=== PATIENT | male | born 2000 | race Caucasian/White ===

== ENCOUNTER 2022-06-12 20:55 | Emergency (ER) | payer MEDICAID, SELFPAY ==
[2022-06-12] VITALS (24 sets, daily range): BP systolic 102–138; BP diastolic 70–83; PULSE 74–100; RESP 14–28; TEMP 37.2; O2SAT 83–98; BMI 34.0
--- NOTE | 2022-06-12 21:09 | ECG_ITS ---
[facility] Test Date: 2022-06-12 Pat Name: Raad Dasilva Department: Room: Gender: Male Technical Information Specialist: : [id number] Requested By: Hamilton Houston Order Number: [id number] Reis MD: Akin Naik M.D. Measurements Intervals [place] Rate: 89 P: 44 WV: 196 QRS: 52 QRSD: 98 T: 42 QT: 356 QTc: 433 Interpretive Statements SINUS RHYTHM No previous ECG available for comparison Electronically Signed On 06-12-2022 22:50:12 INDEX CLERK by Akin Naik M.D. [id number]
--- NOTE | 2022-06-12 21:10 | W.ED.SEIZURE ---
HPI - Seizure General: Chief Complaint: Seizure Stated Complaint: SEIZURE Time Seen by Provider: 06/12/22 21:09 History of Present Illness: HPI Narrative: 22-year-old male patient comes in today with reported seizure episodes. Family reports that patient does eat marijuana edibles daily. Patient eaten 2 of them this morning around 8:00. Patient has seizure episode tonight. No loss of bowel or bladder control was noted. No injury to the tongue was noted. Patient does have some abrasions to his toes. Patient has a history of ADHD and takes quetiapine. No other medical history is reported. Mother reports that patient had a seizure yesterday to where he held his breath for 3 minutes. Mother also reports a previous seizure about 3 weeks ago. Today's episode was reported as flailing arms. Patient does report that he feels disoriented right now. 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 Associated symptoms: Deny chest pain or fever(s) Review of Systems Const: Denies: fever(s) Eyes: Denies: change in vision ENMT: Denies: throat pain Card: Denies: chest pain Resp: Denies: dyspnea GI: Denies: nausea or vomiting : Denies: flank pain Musc: Denies: neck pain Skin/Breast: Denies: rash Neuro: Reports: seizure-like activity Psych: Denies: anxiety or depression Physical Exam Const: COMMON NORMALS: alert HENMT: MOUTH: Normal oral and palatal mucosa present Neck/C-Spine: COMMON NORMALS: full ROM Resp: COMMON NORMALS: normal respiratory effort and clear to auscultation bilaterally AUSCULTATION: clear to auscultation bilaterally Cardio: COMMON NORMALS: regular rate and regular rhythm RATE: regular rate RHYTHM: regular rhythm GI: COMMON NORMALS: Soft to palpation and non-tender PALPATION: Yes Soft to palpation Back/Pelvis: COMMON NORMALS: thoracic and lumbar spine normal to inspection Extremity: COMMON NORMALS: normal to inspection Neuro: SENSORIUM/ORIENTATION: Yes alert Skin: COMMON NORMALS: turgor normal GENERAL SKIN EXAM: turgor normal Course Vital Signs: Vital signs: Vital Signs Temperature 98.9 F 06/12/22 21:02 Pulse Rate 76 06/12/22 23:02 Respiratory Rate 18 06/12/22 23:02 Blood Pressure 138/80 06/12/22 23:02 Pulse Oximetry 98 06/12/22 23:02 Oxygen Delivery Me thod Nasal Cannula 06/12/22 21:02 MDM - Seizure MDM Narrative Medical decision making narrative: 22-year-old male patient comes in today for concerns of possible seizure episodes. Patient denies had a seizure-like episode that occurred probably 1 hour prior to arrival. On exam there is no signs of abrasions to the tongue or mouth. Patient does have some skin abrasions to his knee and left foot. Abdomen soft nontender. Skin is warm and dry. Vital signs are normal. No incontinence was reported. Mother reports patient's had 3 episodes in the last month. Differential diagnosis includes but not limited to epileptic seizures, pseudoseizures, adverse drug effects. CT of the head was unremarkable. CBC and CMP noted no abnormalities. Procalcitonin was 0.05. Drug screen showed positive for cannabis. Patient was given 1 g of Keppra to prevent further seizure. Patient will be continued on Keppra to 250 mg 2 times a day to prevent further seizure. Recommend patient follow-up with neurology for further treatment and evaluation. Suspect more of a pseudoseizure may be secondary to cannabis use or psychiatric illness. Reviewed with patient's family with recommendations for definitive diagnosis through primary care and neurology. Lab Data 06/12/22 21:06 06/12/22 21:06 Labs: Radiology Impressions Head CT 06/12/22 21:33 IMPRESSION: No acute intracranial abnormality. Laboratory Results WBC 8.8 10^3/uL (4.0-10.0) 06/12/22 21:06 RBC 5.56 10^6/uL (4.1-5.3) H 06/12/22 21:06 Hgb 15.6 g/dL (11.7-16.6) 06/12/22 21:06 Hct 45.8 % (42.0-52.0) 06/12/22 21: MCV 82.4 fl (80-94) 06/12/22 21:06 MCH 28.1 pg (28.0-34.0) 06/12/22 21:06 MCHC 34.1 g/dL (30.0-36.0) 06/12/22 21:06 RDW 13.1 % (12.1-15.1) 06/12/22 21:06 Plt Count 244 10^3/cmm (130-400) 06/12/22 21:06 MPV 11.3 fL (7.4-10.4) H 06/12/22 21:06 Neut % (Auto) 65.3 % 06/12/22 21:06 Lymph % (Auto) 26.1 % 06/12/22 21:06 Stanley % (Auto) 5.5 % 06/12/22 21:06 Eos % (Auto) 2.5 % 06/12/22 21:06 Baso % (Auto) 0.3 % 06/12/22 21:06 Neut # (Auto) 5.74 10^3/uL (1.8-7.7) 06/12/22 21:06 Lymph # (Auto) 2.3 10^3/uL (0.8-4.8) 06/12/22 21:06 Stanley # (Auto) 0.5 10^3/uL (0.2-0.9) 06/12/22 21:06 Eos # (Auto) 0.2 10^3/uL (0.0-0.8) 06/12/22 21:06 Baso # (Auto) 0.0 10^3/uL (0.0-0.1) 06/12/22 21:06 Nucleated RBC % (auto) 0 % 06/12/22 21:06 Nucleated RBCs # 0.0 /100WBC 06/12/22 21:06 Sodium 140 mmol/L (136-145) 06/12/22 21:06 Potassium 3.6 mmol/L (3.5-5.1) 06/12/22 21:06 Chloride 101 mmol/L (98-107) 06/12/22 21:06 Carbon Dioxide 25 mmol/L (22-29) 06/12/22 21:06 Anion Gap 17.6 (5-19) 06/12/22 21:06 BUN 10 mg/dL (6-20) 06/12/22 21:06 Creatinine 1.2 mg/dL (0.7-1.2) 06/12/22 21:06 GFR Calculation 76.4 mL/min (90-130) L 06/12/22 21:06 Glucose 107 mg/dL (65-115) 06/12/22 21:06 Calculated Osmolality 290 mOsm/kg (285-295) 06/12/22 21:06 Calcium 9.6 mg/dL (8.5-10.5) 06/12/22 21:06 Total Bilirubin 0.3 mg/dL (0.15-1.2) 06/12/22 21:06 AST 21 U/L (0-40) 06/12/22 21:06 ALT 28 U/L (0-41) 06/12/22 21:06 Alkaline Phosphatase 97 U/L (40-130) 06/12/22 21:06 Total Protein 7.2 g/dL (6.6-8.7) 06/12/22 21:06 Albumin 4.6 g/dL (3.5-5.2) 06/12/22 21:06 Globulin 2.6 g/dL (1.3-4.6) 06/12/22 21:06 Procalcitonin 0.05 ng/mL (0-0.5) 06/12/22 21:06 Urine Color Yellow (Yellow) 06/12/22 22:10 Urine Appearance Clear (CLEAR) 06/12/22 22:10 Urine pH 5 (5-7) 06/12/22 22:10 Ur Specific [place] 1.025 (1.005-1.030) 06/12/22 22:10 Urine Protein Neg (Negative) 06/12/22 22:10 Urine Glucose (UA) Norm (Normal) 06/12/22 22:10 Urine Ketones Negative (Negative) 06/12/22 22:10 Urine Blood Neg (Negative) 06/12/22 22:10 Urine Nitrate Negative (Negative) 06/12/22 22:10 Urine Bilirubin Neg (Negative) 06/12/22 22:10 Urine Urobilinogen Norm mg/dL (Negative) 06/12/22 22:10 Ur Leukocyte Esterase Negative (Negative) 06/12/22 22:10 Urine Opiates Screen Negative ng/mL (Negative) 06/12/22 22:10 Ur Barbiturates Screen Negative ng/mL (Negative) 06/12/22 22:10 Ur Phencyclidine Scrn Negative ng/mL (Negative) 06/12/22 22:10 Ur Amphetamines Screen Negative ng/mL (Negative) 06/12/22 22:10 U Benzodiazepines Scrn Negative ng/mL (Negative) 06/12/22 22:10 Urine Cocaine Screen Negative ng/mL (Negative) 06/12/22 22:10 U Marijuana (THC) Screen Positive ng/mL (Negative) H 06/12/22 22:10 EKG Data EKG 1: EKG interpretation date: 06/12/22 EKG interpretation time: 21:41 Prior EKG tracings: not available for review Interpretation: EKG shows a normal sinus rhythm with a regular rate [address] elevation or ectopy is noted Discharge Plan Discharge Patient Disposition: Home Clinical Impression: Seizure-like activity Condition: Stable Prescriptions: New Keppra 250 mg tablet 250 mg PO BID Qty: 60 0RF Discharge Orders: Discharge ED (Routine); Ordered 06/12/22 Ordered By: Hamilton Richards Discharge Diet: Usual diet Discharge Activity: Increase activity as tolerated Patient Instructions: Opioid Safety, Pain Management, Seizures Activity Restrictions/Additional Instructions: Home and rest. Take medications as directed. Case management will contact you for follow-up appointment for neurology. Coding Level of Care Code ED Infection Control Nurse for Shreya Horner
[2022-06-12 21:14] LABS: Basophils % 0.3 %; Eosinophils # 0.2 10^3/uL (0.0-0.8); Eosinophils % 2.5 %; Hematocrit 45.8 % (42.0-52.0); Hemoglobin 15.6 g/dL (11.7-16.6); Lymphocytes # 2.3 10^3/uL (0.8-4.8); Lymphocytes % 26.1 %; Mean Corpuscular HGB Conc 34.1 g/dL (30.0-36.0); Mean Corpuscular Hemoglobin 28.1 pg (28.0-34.0); Mean Corpuscular Volume 82.4 fl (80-94); Mean Platelet Volume 11.3 fL (7.4-10.4); Monocytes # 0.5 10^3/uL (0.2-0.9); Monocytes % 5.5 %; Neutrophils # 5.74 10^3/uL (1.8-7.7); Neutrophils % 65.3 %; Nucleated Red Blood Cells % 0 %; Platelet Count 244 10^3/cmm (130-400); Red Blood Count 5.56 10^6/uL (4.1-5.3); Red Cell Distribution Width 13.1 % (12.1-15.1); White Blood Count 8.8 10^3/uL (4.0-10.0)
--- NOTE | 2022-06-12 21:33 | CTR_ITS ---
PROCEDURE INFORMATION: Exam: CT Head Without Contrast Exam date and time: 06/12/2022 10:35 PM Age: 22 years old Clinical indication: Condition or disease; Convulsions or seizures; Additional info: Seizure TECHNIQUE: Imaging protocol: Computed tomography of the head without contrast. Radiation optimization: All CT scans at this facility use at least one of these dose optimization techniques: automated exposure control; mA and/or kV adjustment per patient size (includes targeted exams where dose is matched to clinical indication); or iterative reconstruction. REPORTING DATA: Count of CT and Cardiac NM exams in prior 12 months: This patient has received 0 known CTs and 0 known cardiac nuclear medicine studies in the 12 months prior to the current study. COMPARISON: No relevant prior studies available. RADIATION DOSE METRICS: Total DLP (mGy-cm): 1114.88 FINDINGS: Brain: Normal. No hemorrhage. Unremarkable white matter. No mass effect. Cerebral ventricles: No ventriculomegaly. Paranasal sinuses: Visualized sinuses are unremarkable. No fluid levels. Mastoid air cells: Visualized mastoid air cells are well aerated. Bones/joints: Unremarkable. No acute fracture. Soft tissues: Unremarkable. CT/CT head wo con* [id number] IMPRESSION: No acute intracranial abnormality.
[2022-06-12 21:39] LABS: Alanine Aminotransferase 28 U/L (0-41); Albumin Level 4.6 g/dL (3.5-5.2); Alkaline Phosphatase 97 U/L (40-130); Anion Gap 17.6 (5-19); Aspartate Amino Transferase 21 U/L (0-40); Blood Urea Nitrogen 10 mg/dL (6-20); Calcium 9.6 mg/dL (8.5-10.5); Carbon Dioxide 25 mmol/L (22-29); Chloride 101 mmol/L (98-107); Creatinine Clr Calc Pharmacy 115.9016; Globulin 2.6 g/dL (1.3-4.6); Glomerular Filtration Rate 76.4 mL/min (90-130); Glucose 107 mg/dL (65-115); Osmolality Calculated 290 mOsm/kg (285-295); Potassium 3.6 mmol/L (3.5-5.1); Sodium 140 mmol/L (136-145); Total Bilirubin 0.3 mg/dL (0.15-1.2); Total Protein 7.2 g/dL (6.6-8.7)
[2022-06-12] MEDS: acetaminophen 500 mg Tablet 1000 MG PO (22:07)
[2022-06-12 22:11] LABS: Procalcitonin 0.05 ng/mL (0-0.5)
[2022-06-12 22:13] LABS: Add Urine Microscopic? NO; Charge for UA Resulting for Rev
[2022-06-12 22:25] LABS: Amphetamines Screen Urine Negative (Negative); Barbiturates Screen Urine Negative (Negative); Benzodiazepines Screen Urine Negative (Negative); Bilirubin Urine Neg (Negative); Blood Urine Neg (Negative); Cocaine Screen Urine Negative (Negative); Glucose Urine UA Norm (Normal); Ketones Urine Negative (Negative); Leukocyte Esterase Urine Negative (Negative); Nitrate Urine Negative (Negative); Opiate Screen Urine Negative (Negative); PCP Screen Urine Negative (Negative); Protein Urine Neg (Negative); Specific Gravity, Urine 1.025 (1.005-1.030); THC Screen Urine Positive (Negative); Urine Appearance Clear (CLEAR); Urine Color Yellow (Yellow); Urobilinogen Urine Norm (Negative); pH Urine 5 (5-7)
== END 2022-06-12 23:07 | disposition home or self-care (01) ==
PROVIDERS: Emergency Provider Nurse Practitioner Family
DX: R56.9 Unspecified convulsions (principal)
CPT/HCPCS: 70450; 80053; 80306; 81003; 84145; 85025; 93005; 96365; 99285; J1953

== ENCOUNTER 2022-06-14 18:46 | Emergency (ER) | payer MEDICAID, SELFPAY ==
[2022-06-14 18:53] VITALS: RESP 16; O2SAT 98
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
--- NOTE | 2022-06-17 15:34 | DCPLANNER ---
Addendum entered by Liane Quintana 06/28/22 07:47: Patient has a follow up appointment scheduled for Saturday, October 08, 2022 at 10:[address] Fong at neurology. Clinic will call patient with appointment information. Original Note: education general manager had message to schedule a follow up appointment for patient with neurology. education general manager sent patients information to the front office staff at neurology. Patients information will be printed and reviewed. Clinic will call patient with appointment information.
== END 2022-06-14 20:23 | disposition home or self-care (01) ==
PROVIDERS: Emergency Provider Physician Assistant
DX: R56.9 Unspecified convulsions (principal)
CPT/HCPCS: 96365; 99284; J1953

== ENCOUNTER 2022-07-22 23:05 | Emergency (ER) | payer MEDICAID, SELFPAY ==
[2022-07-22 23:13] VITALS: BP 202/141; PULSE 103; RESP 20; TEMP 36.7; O2SAT 95; BMI 41.3
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
[2022-07-22] MEDS: cloNIDine 0.1 mg Tablet PO (23:43)
[2022-07-22] MEDS: acetaminophen 500 mg Tablet 1000 MG PO (23:44)
--- NOTE | 2022-07-31 10:59 | DCPLANNER ---
deli department manager called patient due to no primary care physician - no answer at this time
== END 2022-07-23 | disposition home or self-care (01) ==
PROVIDERS: Emergency Provider Nurse Practitioner Family
DX: S80.01XA Contusion of right knee, initial encounter (principal); S93.401A Sprain of unspecified ligament of right ankle, initial encounter; S96.911A Strain of unspecified muscle and tendon at ankle and foot level, right foot, initial encounter; Y04.2XXA Assault by strike against or bumped into by another person, initial encounter
CPT/HCPCS: 73562; 73610; 99283

== ENCOUNTER 2022-07-30 21:17 | Emergency (ER) | payer MEDICAID, SELFPAY ==
[2022-07-30 21:18] VITALS: BP 149/94; PULSE 76; RESP 16; TEMP 37.1; O2SAT 98; BMI 35.4
[2022-07-30 21:31] VITALS: BP 144/92; PULSE 88; RESP 20; O2SAT 95
--- NOTE | 2022-07-30 21:37 | ED_ITS ---
HPI - Seizure General: Chief Complaint: Seizure Stated Complaint: seizures Time Seen by Provider: 07/30/22 21:27 History of Present Illness: HPI Narrative: Patient is a 22-year-old male who comes to the ED via EMS after seizure. I went in to get history from patient. Patient wanted to leave and was not cooperative. He was up walking around room and appeared in no acute distress or pain. He stated that he has prescription of Keppra that he needs to get filled. I asked him if he would sit down and do a further evaluation and allow me to get a better history on patient and he refused. Patient said he wanted to sign out AMA and leave. Seizure History: Yes Place: Home Review of Systems General: Reports: Other (Patient refused to answer any review of systems questions) [facility] ED PFSH: Medical History (Updated 07/30/22 @ 21:39 by STEVO Chiang) No pertinent family history Surgical History (Updated 06/14/22 @ 20:24 by STEVO Chiang) No pertinent past surgical history Physical Exam Narrative: EXAM NARRATIVE: patient was alert and interactive and walking around room and appeared in no acute distress or pain. He would not allow me to perform any further exam and was uncooperative. Const: COMMON NORMALS: no acute distress, patient oriented x3, healthy appearing and alert GENERAL APPEARANCE: not cooperative (Uncooperative) Neuro: COMMON NORMALS: patient oriented x3 SENSORIUM/ORIENTATION: Yes alert Course Vital Signs: Vital signs: Vital Signs Temperature 98.7 F 07/30/22 21:18 Pulse Rate 88 07/30/22 21:31 Respiratory Rate 20 H 07/30/22 21:31 Blood Pressure 144/92 07/30/22 21:31 Pulse Oximetry 95 07/30/22 21:31 Oxygen Delivery Me thod 07/30/22 21:18 MDM - Seizure MDM Narrative Medical decision making narrative: Patient is a 22-year-old male who comes to the ED via EMS after seizure. I went in to get history from patient. Patient wanted to leave and was not cooperative. He was up walking around room and appeared in no acute distress or pain. He stated that he has prescription of Keppra that he needs to get filled. I asked him if he would sit down and do a further evaluation and allow me to get a better history on patient and he refused. Patient said he wanted to sign out AMA and leave. Vitals are stable. I was unable to perform a complete exam on patient but he appeared in no acute distress or pain and was alert and interactive and walking around the room. I was unable to convince patient to stay in room so I can perform a better evaluation of patient. Patient signed AMA form and was discharged. Discharge Plan Discharge Patient Disposition: Left Against Medical Advice Clinical Impression: Seizure Condition: Stable Prescriptions: No Action Keppra 250 mg tablet 250 mg PO BID Qty: 60 0RF Coding Level of Care Code ED Physical Therapy Aides Teacher for Shreya Horner
--- NOTE | 2022-08-06 14:19 | DCPLANNER ---
r d manager called patient due to no primary care physician - vocational case manager spoke with patients mother, she stated that patient sees Dr. Maldonado at [facility] [place].
== END 2022-07-30 21:49 | disposition left against medical advice (07) ==
PROVIDERS: Emergency Provider Physician Assistant; PCP Family Medicine
DX: R56.9 Unspecified convulsions (principal); Z53.21 Procedure and treatment not carried out due to patient leaving prior to being seen by health care provider
CPT/HCPCS: 99282

== ENCOUNTER 2022-08-12 21:42 | Emergency (ER) | payer MEDICAID, SELFPAY ==
[2022-08-12 22:02] VITALS: BP 134/86; PULSE 81; RESP 16; TEMP 36.9; O2SAT 97
--- NOTE | 2022-08-12 22:13 | ED_ITS ---
HPI - Extremity Problem General: Chief complaint: Extremity Injury, Lower Stated complaint: right leg injury Time Seen by Provider: 08/12/22 22:12 History of Present Illness: 22-year-old male patient comes in today for injury to the right lower leg. Patient reports that he had injured his leg during a seizure yesterday. Patient reports pain to the right lower leg to his knee. Patient reports a history of knee injury. Associated symptoms: Deny chest pain, fever(s) or rash Review of Systems Const: Denies: fever(s) Card: Denies: chest pain Resp: Denies: dyspnea GI: Denies: nausea or vomiting Musc: Reports: extremity pain Skin/Breast: Denies: rash PFSH ED PFSH: Medical History (Updated 08/12/22 @ 22:47 by IRENA Fink) No pertinent family history Surgical History (Updated 06/14/22 @ 20:24 by STEVO Chiang) No pertinent past surgical history Physical Exam Const: COMMON NORMALS: alert HENMT: COMMON NORMALS: normocephalic HEAD & SCALP: normocephalic Neck/C-Spine: COMMON NORMALS: full ROM Resp: COMMON NORMALS: normal respiratory effort Cardio: COMMON NORMALS: regular rate RATE: regular rate Back/Pelvis: COMMON NORMALS: thoracic and lumbar spine normal to inspection Extremity: RIGHT LOWER EXTREMITY: Yes knee joint (Minimal swelling, tenderness on palpation of joint line.) Neuro: SENSORIUM/ORIENTATION: Yes alert Skin: COMMON NORMALS: turgor normal GENERAL SKIN EXAM: turgor normal Course Vital Signs: Vital signs: Vital Signs Temperature 98.4 F 08/12/22 22:02 Pulse Rate 81 08/12/22 22:02 Respiratory Rate 16 08/12/22 22:02 Blood Pressure 134/86 08/12/22 22:02 Pulse Oximetry 97 08/12/22 22:02 Oxygen Delivery Me thod Room Air 08/12/22 22:02 MDM - Extremity (Nontraumatic) Medical Decision Making 22-year-old male patient comes in today for injury to the right lower leg. On exam there is no obvious swelling or injury. Patient reports joint line tenderness of the right knee. Distal pulses and sensation are intact. Differential diagnosis includes but not limited to sprain, contusion, fracture. X-ray of the extremity was unremarkable. Reviewed exam with patient with recommendations for treatment and follow-up. Patient reported understanding and agreed to plan. Discharge Plan Discharge Patient Disposition: Home Clinical Impression: Lower extremity pain Qualifiers: Laterality: right Qualified Code(s): M79.604 - Pain in right leg Condition: Stable Prescriptions: No Action Keppra 250 mg tablet 250 mg PO BID Qty: 60 0RF Discharge Orders: Discharge ED (Routine); Ordered 08/12/22 Ordered By: Hamilton Richards Referrals: Cam Maldonado MD [Primary Care Provider] - Discharge Diet: Usual diet Discharge Activity: Increase activity as tolerated Patient Instructions: Musculoskeletal Pain (ED) Activity Restrictions/Additional Instructions: Use crutches until he can bear weight comfortably on the extremity. Activity as tolerated. Use acetaminophen and ibuprofen for pain. Follow-up with primary care for further instructions. Coding Level of Care Code ED Annealer Helper for Shreya Horner
--- NOTE | 2022-08-12 22:13 | XRR_ITS ---
PROCEDURE INFORMATION: Exam: XR Right Tibia and Fibula Exam date and time: 08/12/2022 10:27 PM Age: 22 years old Clinical indication: Injury or trauma; Fall; Blunt trauma; Lower leg; Right TECHNIQUE: Imaging protocol: Radiologic exam of the right tibia and fibula. Views: 2 views. COMPARISON: CR (LOW EXM, ) 07/22/2022 11:34 PM FINDINGS: Bones/joints: There is no evidence for acute fracture or malalignment. Soft tissues: Normal. XR/XR tibia fibula RT 2V [id number] IMPRESSION: No acute findings.
[2022-08-12 23:13] VITALS: BP 112/70; PULSE 84; O2SAT 97
== END 2022-08-12 23:14 | disposition home or self-care (01) ==
PROVIDERS: Emergency Provider Nurse Practitioner Family; PCP Family Medicine
DX: M79.604 Pain in right leg (principal)
CPT/HCPCS: 73590; 99283; E0114

== ENCOUNTER 2022-08-19 02:08 | Emergency (ER) | payer MEDICAID, SELFPAY ==
[2022-08-19 02:17] VITALS: BP 141/107; PULSE 80; RESP 16; TEMP 36.7; O2SAT 98; BMI 44.3
--- NOTE | 2022-08-19 02:28 | XRR_ITS ---
PROCEDURE INFORMATION: Exam: XR Right Finger(s) Exam date and time: 08/19/2022 2:36 AM Age: 22 years old Clinical indication: Injury or trauma; Fall; Crushing; Right; Middle finger; Additional info: Right middle finger pain swelling injury TECHNIQUE: Imaging protocol: Radiologic exam of the right fingers. Views: Minimum 2 views. COMPARISON: No relevant prior studies available. FINDINGS: Bones/joints: Normal. Soft tissues: Soft tissue edema. Negative foreign body. XR/XR finger RT min 2V [id number] IMPRESSION: Negative for fracture.
--- NOTE | 2022-08-19 02:31 | ED_ITS ---
HPI - Extremity Problem General: Chief complaint: Extremity Injury, Upper Stated complaint: Rt hand Finger Injury Time Seen by Provider: 08/19/22 02:24 Source: patient History of Present Illness: 22-year-old male who was wrestling with family yesterday, and injured his right middle finger. He believes he landed on it wrong . He complains of pain, swelling, bruising, and increased pain with movement of the finger. No numbness or tingling MD Complaint: joint pain Onset (ago): hour(s) Pain Consistency: constant Location: right and other (Third finger) Radiation: none Relieving factors: immobilization Exacerbating factors: range of motion and weight bearing Associated symptoms: Reports no associated symptoms; Deny fever(s) Review of Systems Const: Denies: fever(s) Resp: Denies: dyspnea Neuro: Denies: sensory changes [facility] ED PFSH: Medical History No pertinent family history Surgical History (Updated 06/14/22 @ 20:24 by STEVO Chiang) No pertinent past surgical history Physical Exam Const: COMMON NORMALS: no acute distress GENERAL APPEARANCE: not ill appearing and not frail appearing HENMT: COMMON NORMALS: normocephalic and atraumatic HEAD & SCALP: normocephalic and atraumatic Eye: COMMON NORMALS: Equal, round and reactive pupils present and EOMs intact bilaterally PUPIL: Yes Equal, round and reactive pupils present Neck/C-Spine: GENERAL: Yes trachea midline Chest: CHEST: Yes Symmetrical chest wall rise Resp: COMMON NORMALS: normal respiratory effort, No use of accessory muscles and clear to auscultation bilaterally AUSCULTATION: clear to auscultation bilaterally Cardio: COMMON NORMALS: regular rate and regular rhythm RATE: regular rate RHYTHM: regular rhythm Extremity: NARRATIVE EXTREMITY EXAM: Exam of the right hand reveals bruising over the middle phalanx of the third digit. There is swelling present. Sensation is intact. Capillary refill to the digit is normal. No gross deformity. There is tenderness palpation at the middle phalanx mainly. Flexion is intact at the DIP. Active full extension is attainable. Course Vital Signs: Vital signs: Vital Signs Temperature 98.0 F 08/19/22 02:17 Pulse Rate 80 08/19/22 02:17 Respiratory Rate 16 08/19/22 02:17 Blood Pressure 141/107 08/19/22 02:17 Pulse Oximetry 98 08/19/22 02:17 Oxygen Delivery Me thod Room Air 08/19/22 02:17 MDM - Extremity (Nontraumatic) Medical Decision Making There may be a hairline fracture of the distal portion of the middle phalanx of the third finger. It is completely nondisplaced. Soft tissue swelling is present. He will be placed in aluminum foam splint, and asked to follow-up for repeat x-ray in 7 days Discharge Plan Discharge Patient Disposition: Home Clinical Impression: Fracture of middle phalanx of finger of right hand Condition: Stable Prescriptions: No Action Keppra 250 mg tablet 250 mg PO BID Qty: 60 0RF Discharge Orders: Discharge ED (Routine); Ordered 08/19/22 Ordered By: Damaso Tejada Referrals: Cam Maldonado MD [Primary Care Provider] - 4-7 days Patient Instructions: Finger Fracture (ED), Opioid Safety, Pain Management Activity Restrictions/Additional Instructions: X-rays show a likely tiny hairline fracture of the middle bone of your third finger. It is not displaced. Wear the splint as shown in the ER for the next 5 to 7 days. See your doctor for another exam at that point. You may be told to lauren tape the finger at that point as well. Return for any problems. Ice will help with pain and swelling. You may use Tylenol or ibuprofen as well for pain and swelling. Coding Level of Care Code ED Roller Printer for Shreya Horner
[2022-08-19 02:50] VITALS: BP 154/119; PULSE 73; RESP 16; O2SAT 99
[2022-08-19] MEDS: oxyCODONE-APAP 5-325 mg Tablet 2 TAB PO (02:52)
== END 2022-08-19 03:05 | disposition home or self-care (01) ==
PROVIDERS: Emergency Provider Emergency Medicine; PCP Family Medicine
DX: S62.652A Nondisplaced fracture of middle phalanx of right middle finger, initial encounter for closed fracture (principal); X50.1XXA Overexertion from prolonged static or awkward postures, initial encounter; Y93.72 Activity, wrestling
CPT/HCPCS: 73140; 99283

== ENCOUNTER 2022-12-15 15:25 | Emergency (ER) | payer MEDICAID, SELFPAY ==
[2022-12-15 15:27] VITALS: BP 153/70; PULSE 82; RESP 16; TEMP 36.7; O2SAT 96
--- NOTE | 2022-12-15 15:54 | XRR_ITS ---
PROCEDURE INFORMATION: Exam: XR Right Ribs with PA Chest Exam date and time: 12/15/2022 4:31 PM Age: 22 years old Clinical indication: Injury or trauma; Other: Fall; Chest wall; Other: R ribs; Additional info: Fall, right anterolateral rib pain TECHNIQUE: Imaging protocol: Radiologic exam of the right ribs with PA chest. Views: 3 views COMPARISON: No relevant prior studies available. FINDINGS: Lungs: Unremarkable. No consolidation. Pleural spaces: No pleural effusion. No pneumothorax. Heart/Mediastinum: Unremarkable. No cardiomegaly. Bones/joints: No acute fracture or other acute osseous abnormality. Soft tissues: The soft tissues are unremarkable as demonstrated. XR/XR ribs RT mn 3V w CXR1V [id number] IMPRESSION: 1. No acute right rib fracture demonstrated. 2. No acute abnormality demonstrated.
--- NOTE | 2022-12-15 15:55 | W.ED.FALL ---
HPI - Fall General: Chief Complaint: Fall Stated Complaint: fall scratch to chest Time Seen by Provider: 12/15/22 15:49 Source: patient and family Mode of arrival: ambulatory Limitations: no limitations History of Present Illness: 22yo male presents with mother for evaluation of injury to the right chest that occurred yesterday when he slipped on wet stairs at a water park. States that he was climbing the stairs for a water slide when he slipped, falling across the step. Mother reports when he got off of the slide, she noticed the sanaz across his chest and he told her that he slipped. States he did have a seizure after going down the slide, but she believes it was related to the adrenaline from the slide. Reports that he does have increased pain with certain movements and with deep breathing. Denies any other injury or concern at this time. Associated symptoms-after fall: Denies abdominal pain or neck pain Review of Systems Const: Denies: fever(s) or chills Card: Denies: palpitations GI: Denies: abdominal pain or vomiting Musc: Reports: other (chest wall pain); Denies: neck pain or back pain Scott/Lymph: Denies: easy bruising [facility] ED PFSH: Medical History No pertinent family history Surgical History No pertinent past surgical history Physical Exam Const: COMMON NORMALS: no acute distress, patient oriented x3 and alert GENERAL APPEARANCE: cooperative ORIENTATION/CONSCIOUSNESS: Yes awake OTHER: Patient is ambulatory to the exam room unassisted. He is sitting upright on the side of the stretcher in no acute distress. He is able to give history with no difficulty. Mother is at bedside HENMT: COMMON NORMALS: normocephalic, atraumatic and Normal external nose present HEAD & SCALP: normocephalic and atraumatic NOSE: Normal external nose present Eye: GENERAL EYE: appearance normal, both eyes and all related structures Chest: CHEST: Yes Symmetrical chest wall rise, No crepitus, Yes localized rib tenderness with anteroposterior compression (anterolateral right) Location: 5th rib, 6th rib and 7th rib, No Sternal flail present, Yes abrasion (see image) and No Ecchymosis present Chest images (male): 1. Abrasion and tenderness Resp: COMMON NORMALS: normal respiratory effort and clear to auscultation bilaterally EFFORT & INSPECTION: Yes able to speak in complete sentences AUSCULTATION: clear to auscultation bilaterally Cardio: COMMON NORMALS: regular rate RATE: regular rate Back/Pelvis: COMMON NORMALS: thoraco-lumbar ROM normal Extremity: COMMON NORMALS: full ROM Neuro: COMMON NORMALS: patient oriented x3 SENSORIUM/ORIENTATION: Yes alert SPEECH: speech normal Psych: COMMON NORMALS: cooperative ATTITUDE: Yes calm Course Vital Signs: Vital signs: Vital Signs Temperature 98.0 F 12/15/22 15:27 Pulse Rate 82 12/15/22 15:27 Respiratory Rate 16 12/15/22 15:27 Blood Pressure 153/70 12/15/22 15:27 Pulse Oximetry 96 12/15/22 15:27 Oxygen Delivery Me thod Room Air 12/15/22 15:27 MDM - Fall Medical Decision Making 22yo male here with mother for right-sided rib pain after a slip and fall on wet steps yesterday while at a water park. States he was going up steps to a slide when he slipped, falling across the step. Reports increased pain with deep breathing and certain movements. Denies any other injury or concern at this time. Patient is nontoxic in appearance. Vital signs are stable. We will proceed with x-ray imaging for concern of fracture. Differential Dx: fracture, contusion No pneumothorax or obvious fracture noted on right rib series x-ray, pending radiology review. Discussed findings with patient and family. Patient did receive ketorolac while in the emergency department to help with the discomfort. Discussed rib contusions versus rib fractures and the treatment of both. Recommend Tylenol and/ibuprofen as needed for pain and comfort. Activity as tolerated. Advised to follow-up with primary care later this week with an update of symptoms and to discuss a recheck. Recommend return to the emergency department if any rapid worsening symptoms, difficulty breathing, and as needed. Imaging Data Other Xray: I personally reviewed and interpreted this imaging study as follows: My impression: Right rib series x-ray. No pneumothorax or displaced rib fracture noted Discharge Plan Discharge Patient Disposition: Home Clinical Impression: Contusion of rib on right side, Fall on stairs Condition: Stable Prescriptions: No Action Keppra 250 mg tablet 250 mg PO BID Qty: 60 0RF Discharge Orders: Discharge ED (Routine); Ordered 12/15/22 Ordered By: Juve Felton Referrals: Cam Maldonado MD [Primary Care Provider] - Discharge Diet: Usual diet Discharge Activity: Increase activity as tolerated Patient Instructions: Rib Contusion (ED) Activity Restrictions/Additional Instructions: You may use [id number] Tylenol and/ibuprofen as needed for pain and comfort Try to take at least 1 deep breath every 10 minutes minutes while you are awake Try to avoid heavy lifting and bending for the next couple of days, activity as tolerated Follow-up with your doctor, call later this week with an update of symptoms and to discuss a recheck Return to the emergency department if any rapid worsening symptoms, difficulty breathing, and as needed Coding Level of Care Code ED Pug Mill Operator for Shreya Horner
[2022-12-15] MEDS: ketorolac 30 mg/mL INJ IM (17:02)
== END 2022-12-15 17:17 | disposition home or self-care (01) ==
PROVIDERS: Emergency Provider Nurse Practitioner; PCP Family Medicine
DX: S20.211A Contusion of right front wall of thorax, initial encounter (principal); W01.198A Fall on same level from slipping, tripping and stumbling with subsequent striking against other object, initial encounter; Y92.34 Swimming pool (public) as the place of occurrence of the external cause
CPT/HCPCS: 71101; 96372; 99284; J1885

== ENCOUNTER 2023-01-27 17:55 | Emergency (ER) | payer MEDICAID, SELFPAY ==
[2023-01-27 18:05] VITALS: BP 160/114; PULSE 104; RESP 17; TEMP 36.6; O2SAT 99; BMI 44.6
--- NOTE | 2023-01-27 18:27 | XRR_ITS ---
PROCEDURE INFORMATION: Exam: XR Right Finger(s) Exam date and time: 01/27/2023 6:39 PM Age: 22 years old Clinical indication: Injury or trauma; Other: Smashed middle finger; Crushing; Right; Additional info: Trauma/injury; Middle TECHNIQUE: Imaging protocol: Radiologic exam of the right fingers. Views: Minimum 2 views. COMPARISON: No relevant prior studies available. FINDINGS: Bones/joints: Osseous structures are intact. Negative for fracture. Joint spaces are preserved. Soft tissues: Normal. XR/XR finger RT min 2V [id number] IMPRESSION: No acute findings.
--- NOTE | 2023-01-27 18:27 | W.ED.EXTPRO ---
HPI - Extremity Problem General: Chief complaint: Extremity Injury, Upper Stated complaint: smashed finger Time Seen by Provider: 01/27/23 17:57 Source: patient Mode of arrival: ambulatory Limitations: no limitations History of Present Illness: Patient is a 22-year-old male who presents to ED today with a complaint of pain to his right middle finger that began yesterday while at work when he got the digit smashed between belts at work. MD Complaint: extremity pain Onset (ago): day(s) Pain Consistency: constant Location: right and upper extremity Radiation: none Relieving factors: immobilization Exacerbating factors: range of motion Associated symptoms: Reports no associated symptoms Review of Systems Musc: Reports: extremity pain and extremity swelling; Denies: neck pain, back pain, joint redness or joint warmth Neuro: Denies: numbness in extremities or sensory changes PFS ED PFSH: Medical History No pertinent family history Surgical History No pertinent past surgical history Physical Exam Const: COMMON NORMALS: no acute distress, no limitations and alert Extremity: COMMON NORMALS: capillary refill normal GENERAL: Yes normal exam except as noted RIGHT UPPER EXTREMITY: Yes hand & digits (mild swelling to digit) Right hand and digits: Yes inspection (ecchymosis dorsal PIP; max tenderness distal digit), Yes ROM exam (limited secondary to pain), Yes neurovascular exam (normal), Yes tendon exam (normal) and Yes other (no scrapes, lacerations, abrasions; small subungual hematoma) Neuro: COMMON NORMALS: moves all extremities, no focal motor deficits and no sensory deficits noted SENSORIUM/ORIENTATION: Yes alert Skin: TRAUMA: no lacerations or abrasions Course Vital Signs: Vital signs: Vital Signs Temperature 97.9 F 01/27/23 18:05 Pulse Rate 104 H 01/27/23 18:05 Respiratory Rate 17 01/27/23 18:05 Blood Pressure 160/114 01/27/23 18:05 Pulse Oximetry 99 01/27/23 18:05 Oxygen Delivery Me thod Room Air 01/27/23 18:05 MDM - Extremity (Nontraumatic) Medical Decision Making XR looks like a non-displaced distal phalax fracture-only seen on lateral projection. Will splint and have him follow up with orthopedics. Patient states he does not want this filed under a worker's comp injury. XR interpretation done by ED provider, pending radiology final review Discharge Plan Discharge Patient Disposition: Home Clinical Impression: Fracture of distal phalanx of finger Qualifiers: Encounter type: initial encounter Finger: middle finger Fracture type: closed Fracture alignment: nondisplaced Laterality: right Qualified Code(s): S62.662A - Nondisplaced fracture of distal phalanx of right middle finger, initial encounter for closed fracture Condition: Stable Prescriptions: No Action Keppra 250 mg tablet 250 mg PO BID Qty: 60 0RF Discharge Orders: Discharge ED (Routine); Ordered 01/27/23 Ordered By: Ana Maria Shay Referrals: Cam Maldonado MD [Primary Care Provider] - Activity Restrictions/Additional Instructions: Stay in finger splint until follow-up with orthopedics. Case management should reach out to you later this week to help set you up with this appointment. Stand Alone Forms: Work/School Release Coding Level of Care Code ED Email Marketing Assistant for Shreya Horner
== END 2023-01-27 19:20 | disposition home or self-care (01) ==
PROVIDERS: Emergency Provider Physician Assistant; PCP Family Medicine
DX: S62.662A Nondisplaced fracture of distal phalanx of right middle finger, initial encounter for closed fracture (principal); W31.89XA Contact with other specified machinery, initial encounter; Y99.0 Civilian activity done for income or pay
CPT/HCPCS: 73140; 99283

== ENCOUNTER 2023-01-28 20:40 | Emergency (ER) | payer MEDICAID, SELFPAY ==
[2023-01-28 20:50] VITALS: BP 158/107; PULSE 91; RESP 20; TEMP 36.6; O2SAT 97; BMI 45.4
--- NOTE | 2023-01-28 21:37 | W.ED.NAVMDI ---
HPI - Nausea/Vomiting/Diarrhea General: Chief complaint: Nausea/Vomiting/Diarrhea Stated complaint: n/v Time Seen by Provider: 01/28/23 21:18 Source: patient Mode of arrival: ambulatory Limitations: no limitations History of Present Illness: Patient is a 22-year-old male who presents to ED today with a complaint of nausea, vomiting, diarrhea over the past 3 days or so. It is somewhat hard to get patient to quantify how much vomiting and diarrhea he has had during that time period. At one point he tells me he has an episode of vomiting every 3 to 4 minutes but then later changes that and states he will only vomit approximately 3-4 times a day. Same with the diarrhea. He has not noticed any hematemesis or hematochezia. He is not having any abdominal pain or cramping. No fevers. No sick contacts. No poor food exposures. He has a separate complaint of right knee pain stating that he accidentally struck the knee by running into his dryer yesterday. Patient is ambulatory on the extremity without difficulty or assistance. MD elicited complaint: nausea, vomiting, diarrhea and other (R knee pain) Onset (ago): day(s) Description of vomiting: food contents Description of diarrhea: watery Associated nausea: Yes Associated abdominal pain: No Location of pain: None Exacerbating factors: none Relieving factors: none Associated symtoms: Reports nausea; Denies change in vision, chest pain, dysuria, fatigue, headache(s), malaise, palpitations or syncope Review of Systems Const: Denies: fever(s), chills, body aches, fatigue or malaise Eyes: Denies: change in vision or blurry vision ENMT: Denies: throat pain, odynophagia, nasal discharge or nasal congestion Card: Denies: chest pain, palpitations, irregular heart rhythm, lightheadedness, syncope or dyspnea on exertion Resp: Denies: dyspnea, productive cough or pain on inspiration GI: Reports: nausea, vomiting and diarrhea; Denies: abdominal pain, hematemesis, heartburn, rectal swelling, hematochezia, melena, mucus in stool or white/light colored stool : Denies: flank pain, difficulty urinating, dysuria or urinary urgency Musc: Reports: joint pain (R knee); Denies: neck pain, back pain, extremity pain, extremity swelling, joint swelling, joint redness, joint warmth or limited range of motion Skin/Breast: Denies: rash Neuro: Denies: headache(s), numbness in extremities, weakness in extremities or sensory changes PFSH ED PFSH: Medical History No pertinent family history Surgical History No pertinent past surgical history Physical Exam Const: COMMON NORMALS: no acute distress, patient oriented x3, no limitations, alert and well nourished GENERAL APPEARANCE: cooperative NUTRITIONAL APPEARANCE: obese morbidly obese ORIENTATION/CONSCIOUSNESS: Yes awake, Yes oriented to person, Yes oriented to place and Yes oriented to time HENMT: COMMON NORMALS: normocephalic and atraumatic HEAD & SCALP: normocephalic and atraumatic Eye: COMMON NORMALS: no scleral icterus Neck/C-Spine: COMMON NORMALS: full ROM, no lymphadenopathy, supple and no meningeal signs Chest: COMMONS NORMALS: normal inspection of the chest Resp: COMMON NORMALS: normal respiratory effort and clear to auscultation bilaterally AUSCULTATION: clear to auscultation bilaterally Cardio: COMMON NORMALS: regular rate and regular rhythm RATE: regular rate RHYTHM: regular rhythm GI: COMMON NORMALS: Normal to inspection, nondistended, normoactive bowel sounds present, Soft to palpation, non-tender, No hepatosplenomegaly present and no masses PALPATION: Yes Soft to palpation and Yes No hepatosplenomegaly present : COMMON NORMALS: Yes no CVA tenderness BLADDER/KIDNEY EXAM: Yes no CVA tenderness Back/Pelvis: COMMON NORMALS: no CVA tenderness and thoracic and lumbar spine normal to inspection Extremity: COMMON NORMALS: normal to inspection GENERAL: Yes normal exam except as noted RIGHT LOWER EXTREMITY: Yes knee joint (anterolateral knee pain; full ROM; no swelling/effusion noted) Right knee: Yes neurovascular exam (normal) and Yes other (no laxity) OTHER: continued ecchymosis and pain to R middle finger from recent injury; in finger splint Neuro: COMMON NORMALS: patient oriented x3, moves all extremities, no focal motor deficits and no sensory deficits noted SENSORIUM/ORIENTATION: Yes alert, Yes oriented to person, Yes oriented to place and Yes oriented to time MENINGEAL SIGNS: Yes no meningeal signs Skin: COMMON NORMALS: no rashes or lesions noted NARRATIVE SKIN EXAM: folliculitis to chest/back GENERAL SKIN EXAM: no rashes or lesions noted Course Vital Signs: Vital signs: Vital Signs Temperature 97.8 F 01/28/23 20:50 Pulse Rate 91 01/28/23 20:50 Respiratory Rate 18 01/28/23 22:06 Blood Pressure 158/107 01/28/23 20:50 Pulse Oximetry 97 01/28/23 20:50 Oxygen Delivery Me thod Room Air 01/28/23 22:06 MDM - Nausea/Vomiting/Diarrhea Medical Decision Making Patient clinically appears in no acute distress. His vital signs are stable. He has not had any episodes of vomiting while here. His blood work overall is unremarkable. No significant signs of dehydration. His knee XR is negative. Recommend patient follow-up with primary care in 3 to 5 days if symptoms persist. Return ED precautions given. Lab Data 01/28/23 22:06 01/28/23 22:06 Radiology Impressions Knee X-Ray 01/28/23 21:44 IMPRESSION: No acute findings. Laboratory Results WBC 11.58 10^3/uL (3.29-11.43) H 01/28/23 22:06 RBC 5.41 10^6/uL (3.85-5.65) 01/28/23 22:06 Hgb 15.70 g/dL (11.27-16.99) 01/28/23 22:06 Hct 45.0 % (37-53) 01/28/23 22:06 MCV 83.2 fl (82-101) 01/28/23 22:06 MCH 29.0 pg (27-33) 01/28/23 22:06 MCHC 34.9 g/dL (30-55) 01/28/23 22:06 RDW 13.6 % (12.1-15.1) 01/28/23 22:06 Plt Count 252 10^3/cmm (157-399) 01/28/23 22:06 MPV 10.7 fL (7.4-10.4) H 01/28/23 22:06 Neut % (Auto) 70.1 % 01/28/23 22:06 Lymph % (Auto) 18.7 % 01/28/23 22:06 [place] % (Auto) 7.1 % 01/28/23 22:06 Eos % (Auto) 3.4 % 01/28/23 22:06 Baso % (Auto) 0.4 % 01/28/23 22:06 Neut # (Auto) 8.12 10^3/uL (1.8-7.7) H 01/28/23 22:06 Lymph # (Auto) 2.2 10^3/uL (0.8-4.8) 01/28/23 22:06 [place] # (Auto) 0.8 10^3/uL (0.2-0.9) 01/28/23 22:06 Eos # (Auto) 0.4 10^3/uL (0.0-0.8) 01/28/23 22:06 Baso # (Auto) 0.1 10^3/uL (0.0-0.1) 01/28/23 22:06 Nucleated RBC % (auto) 0 % 01/28/23 22:06 Nucleated RBCs # 0.0 /100WBC 01/28/23 22:06 Sodium 136 mmol/L (136-145) 01/28/23 22:06 Potassium 3.6 mmol/L (3.5-5.1) 01/28/23 22:06 Chloride 101 mmol/L (98-107) 01/28/23 22:06 Carbon Dioxide 23 mmol/L (22-29) 01/28/23 22:06 Anion Gap 15.6 (5-19) 01/28/23 22:06 BUN 4 mg/dL (6-20) L 01/28/23 22:06 Creatinine 1.0 mg/dL (0.7-1.2) 01/28/23 22:06 GFR Calculation 94.3 mL/min (90-130) 01/28/23 22:06 Glucose 106 mg/dL (65-115) 01/28/23 22:06 Calculated Osmolality 279 mOsm/kg (285-295) L 01/28/23 22:06 Calcium 9.5 mg/dL (8.5-10.5) 01/28/23 22:06 Total Bilirubin 0.5 mg/dL (0.15-1.2) 01/28/23 22:06 AST 27 U/L (0-40) 01/28/23 22:06 ALT 44 U/L (0-41) H 01/28/23 22:06 Alkaline Phosphatase 100 U/L (40-130) 01/28/23 22:06 Total Protein 7.4 g/dL (6.6-8.7) 01/28/23 22:06 Albumin 4.8 g/dL (3.5-5.2) 01/28/23 22:06 Globulin 2.6 g/dL (1.3-4.6) 01/28/23 22:06 Lipase 20 U/L (13-60) 01/28/23 22:06 Urine Color Straw (Yellow) 01/28/23 22:00 Urine Appearance Clear (CLEAR) 01/28/23 22:00 Urine pH 6.5 (5-7) 01/28/23 22:00 Ur Specific [place] 1.005 (1.005-1.030) 01/28/23 22:00 Urine Protein Neg (Negative) 01/28/23 22:00 Urine Glucose (UA) Norm (Normal) 01/28/23 22:00 Urine Ketones Negative (Negative) 01/28/23 22:00 Urine Blood Neg (Negative) 01/28/23 22:00 Urine Nitrate Negative (Negative) 01/28/23 22:00 Urine Bilirubin Neg (Negative) 01/28/23 22:00 Urine Urobilinogen Norm mg/dL (Negative) 01/28/23 22:00 Ur Leukocyte Esterase Negative (Negative) 01/28/23 22:00 No radiology studies performed this visit Discharge Plan Discharge Patient Disposition: Home Clinical Impression: Gastroenteritis Contusion of right knee Qualifiers: Encounter type: initial encounter Qualified Code(s): S80.01XA - Contusion of right knee, initial encounter Condition: Stable Prescriptions: New ondansetron 4 mg tablet,disintegrating 4 mg PO Q8H PRN (Reason: nausea and vomiting) Qty: 14 0RF No Action Keppra 250 mg tablet 250 mg PO BID Qty: 60 0RF Discharge Orders: Discharge ED (Routine); Ordered 01/28/23 Ordered By: Ana Maria Shay Referrals: Cam Maldonado MD [Primary Care Provider] - Patient Instructions: Contusion, Gastroenteritis (DC) Coding Level of Care Code ED Organizational Effectiveness Director for [facility]
--- NOTE | 2023-01-28 21:44 | XRR_ITS ---
PROCEDURE INFORMATION: Exam: XR Right Knee Exam date and time: 01/28/2023 9:55 PM Age: 22 years old Clinical indication: Injury or trauma; Other: Bumped RT knee; Blunt trauma; Right TECHNIQUE: Imaging protocol: Radiologic exam of the right knee. Views: 3 views. COMPARISON: CR XR knee RT 3V* [id number] 01/08/2023 3:06 PM FINDINGS: Bones/joints: Normal. Soft tissues: Normal. XR/XR knee RT 3V* [id number] IMPRESSION: No acute findings.
[2023-01-28 22:06] VITALS: RESP 18
[2023-01-28 22:11] LABS: Add Urine Microscopic? NO; Charge for UA Resulting for Rev
[2023-01-28 22:14] LABS: Basophils # 0.1 10^3/uL (0.0-0.1); Basophils % 0.4 %; Eosinophils # 0.4 10^3/uL (0.0-0.8); Eosinophils % 3.4 %; Lymphocytes # 2.2 10^3/uL (0.8-4.8); Lymphocytes % 18.7 %; Mean Corpuscular HGB Conc 34.9 g/dL (30-55); Mean Corpuscular Volume 83.2 fl (82-101); Mean Platelet Volume 10.7 fL (7.4-10.4); Monocytes # 0.8 10^3/uL (0.2-0.9); Monocytes % 7.1 %; Neutrophils # 8.12 10^3/uL (1.8-7.7); Neutrophils % 70.1 %; Nucleated Red Blood Cells % 0 %; Platelet Count 252 10^3/cmm (157-399); Red Blood Count 5.41 10^6/uL (3.85-5.65); Red Cell Distribution Width 13.6 % (12.1-15.1); White Blood Count 11.58 10^3/uL (3.29-11.43)
[2023-01-28 22:35] LABS: Bilirubin Urine Neg (Negative); Blood Urine Neg (Negative); Glucose Urine UA Norm (Normal); Ketones Urine Negative (Negative); Leukocyte Esterase Urine Negative (Negative); Nitrate Urine Negative (Negative); Protein Urine Neg (Negative); Specific Gravity, Urine 1.005 (1.005-1.030); Urine Appearance Clear (CLEAR); Urine Color Straw (Yellow); Urobilinogen Urine Norm (Negative); pH Urine 6.5 (5-7)
[2023-01-28 22:38] LABS: Alanine Aminotransferase 44 U/L (0-41); Albumin Level 4.8 g/dL (3.5-5.2); Alkaline Phosphatase 100 U/L (40-130); Anion Gap 15.6 (5-19); Aspartate Amino Transferase 27 U/L (0-40); Blood Urea Nitrogen 4 mg/dL (6-20); Calcium 9.5 mg/dL (8.5-10.5); Carbon Dioxide 23 mmol/L (22-29); Chloride 101 mmol/L (98-107); Globulin 2.6 g/dL (1.3-4.6); Glomerular Filtration Rate 94.3 mL/min (90-130); Glucose 106 mg/dL (65-115); Lipase 20 U/L (13-60); Osmolality Calculated 279 mOsm/kg (285-295); Potassium 3.6 mmol/L (3.5-5.1); Sodium 136 mmol/L (136-145); Total Bilirubin 0.5 mg/dL (0.15-1.2); Total Protein 7.4 g/dL (6.6-8.7)
[2023-01-28] MEDS: ondansetron 4 MG Tablet PO (23:04)
== END 2023-01-28 23:06 | disposition home or self-care (01) ==
PROVIDERS: Emergency Provider Physician Assistant; PCP Family Medicine
DX: K52.9 Noninfective gastroenteritis and colitis, unspecified (principal); S80.01XA Contusion of right knee, initial encounter; W22.09XA Striking against other stationary object, initial encounter
CPT/HCPCS: 36415; 73562; 80053; 81003; 83690; 85025; 99284; Q0162

== ENCOUNTER 2023-01-29 06:51 | Emergency (ER) | payer MEDICAID, SELFPAY ==
[2023-01-29 06:59] VITALS: BP 177/123; PULSE 111; RESP 18; TEMP 36.8; O2SAT 95
--- NOTE | 2023-01-29 07:00 | W.ED.PSYCHS ---
HPI - Psych General: Chief Complaint: Psychiatric Symptoms Stated Complaint: SI Time Seen by Provider: 01/29/23 06:52 Source: patient and EMS Mode of arrival: EMS Limitations: no limitations History of Present Illness: 22-year-old male is here with EMS he states that he called into work this morning him and his mom got in a fight over that and he told her using a slit his wrist. He states that he is not suicidal he said he is just saying that he stated he is depressed he feels like he needs to be on meds he denies having any suicidal plan at this time. Associated symptoms: Reports depression Review of Systems Const: Denies: fever(s), chills, body aches or change in appetite Eyes: Denies: blurry vision or eye discomfort ENMT: Denies: throat pain or dental pain Card: Denies: chest pain Resp: Denies: dyspnea GI: Denies: abdominal pain, nausea, vomiting or diarrhea Musc: Denies: neck pain or back pain Skin/Breast: Denies: rash Neuro: Denies: headache(s) Psych: Reports: depression [facility] ED PFSH: Medical History No pertinent family history Surgical History No pertinent past surgical history Physical Exam Const: COMMON NORMALS: no acute distress, patient oriented x3 and healthy appearing HENMT: COMMON NORMALS: normocephalic and atraumatic HEAD & SCALP: normocephalic and atraumatic Eye: COMMON NORMALS: conjunctivae normal CONJUNCTIVA: Yes conjunctivae normal Neck/C-Spine: COMMON NORMALS: full ROM and supple Chest: COMMONS NORMALS: normal inspection of the chest Resp: COMMON NORMALS: normal respiratory effort Cardio: COMMON NORMALS: regular rate, regular rhythm and No murmurs present (Cardio) RATE: regular rate RHYTHM: regular rhythm GI: COMMON NORMALS: Normal to inspection, nondistended, normoactive bowel sounds present, Soft to palpation, non-tender and no masses PALPATION: Yes Soft to palpation Extremity: COMMON NORMALS: normal to inspection and full ROM Neuro: COMMON NORMALS: patient oriented x3, moves all extremities and no focal motor deficits Psych: COMMON NORMALS: mental status grossly normal, Normal thought process present and cooperative THOUGHT PROCESS: Normal thought process present Skin: COMMON NORMALS: no rashes or lesions noted and no wounds GENERAL SKIN EXAM: no rashes or lesions noted Course Vital Signs: Vital signs: Vital Signs Temperature 98.3 F 01/29/23 06:59 Pulse Rate 111 H 01/29/23 06:59 Respiratory Rate 18 01/29/23 06:59 Blood Pressure 177/123 01/29/23 06:59 Pulse Oximetry 95 01/29/23 06:59 Oxygen Delivery Me thod Room Air 01/29/23 06:59 MDM - Psych Medical Decision Making Patient presents here with depression he is not suicidal and patient evaluated by psychiatrist Dr. Toscano who agrees that he does not require inpatient admission we will refer him to the crisis center he is to follow-up with [facility] return if worsening. Medical Records I reviewed the patient's medical records. Lab Data I reviewed the patient's lab results. 01/29/23 07:05 01/29/23 07:05 Laboratory Results WBC 10.55 10^3/uL (3.29-11.43) 01/29/23 07:05 RBC 5.61 10^6/uL (3.85-5.65) 01/29/23 07:05 Hgb 16.30 g/dL (11.27-16.99) 01/29/23 07:05 Hct 46.3 % (37-53) 01/29/23 07:05 MCV 82.5 fl (82-101) 01/29/23 07:05 MCH 29.1 pg (27-33) 01/29/23 07:05 MCHC 35.2 g/dL (30-55) 01/29/23 07:05 RDW 13.6 % (12.1-15.1) 01/29/23 07:05 Plt Count 237 10^3/cmm (157-399) 01/29/23 07:05 MPV 10.6 fL (7.4-10.4) H 01/29/23 07:05 Neut % (Auto) 75.1 % 01/29/23 07:05 Lymph % (Auto) 14.4 % 01/29/23 07:05 [place] % (Auto) 6.2 % 01/29/23 07:05 Eos % (Auto) 3.5 % 01/29/23 07:05 Baso % (Auto) 0.5 % 01/29/23 07:05 Neut # (Auto) 7.93 10^3/uL (1.8-7.7) H 01/29/23 07:05 Lymph # (Auto) 1.5 10^3/uL (0.8-4.8) 01/29/23 07:05 [place] # (Auto) 0.7 10^3/uL (0.2-0.9) 01/29/23 07:05 Eos # (Auto) 0.4 10^3/uL (0.0-0.8) 01/29/23 07:05 Baso # (Auto) 0.1 10^3/uL (0.0-0.1) 01/29/23 07:05 Nucleated RBC % (auto) 0 % 01/29/23 07:05 Nucleated RBCs # 0.0 /100WBC 01/29/23 07:05 Sodium 137 mmol/L (136-145) 01/29/23 07:05 Potassium 3.8 mmol/L (3.5-5.1) 01/29/23 07:05 Chloride 102 mmol/L (98-107) 01/29/23 07:05 Carbon Dioxide 23 mmol/L (22-29) 01/29/23 07:05 Anion Gap 15.8 (5-19) 01/29/23 07:05 BUN 5 mg/dL (6-20) L 01/29/23 07:05 Creatinine 1.1 mg/dL (0.7-1.2) 01/29/23 07:05 GFR Calculation 84.5 mL/min (90-130) L 01/29/23 07:05 Glucose 139 mg/dL (65-115) H 01/29/23 07:05 Calculated Osmolality 284 mOsm/kg (285-295) L 01/29/23 07:05 Calcium 9.5 mg/dL (8.5-10.5) 01/29/23 07:05 Total Bilirubin 0.8 mg/dL (0.15-1.2) 01/29/23 07:05 AST 28 U/L (0-40) 01/29/23 07:05 ALT 46 U/L (0-41) H 01/29/23 07:05 Alkaline Phosphatase 101 U/L (40-130) 01/29/23 07:05 Total Protein 7.6 g/dL (6.6-8.7) 01/29/23 07:05 Albumin 4.7 g/dL (3.5-5.2) 01/29/23 07:05 Globulin 2.9 g/dL (1.3-4.6) 01/29/23 07:05 Salicylates < 0.3 mg/dL (3-10) L 01/29/23 07:05 Urine Opiates Screen Negative ng/mL (Negative) 01/29/23 07:03 Acetaminophen < 5.0 ug/mL (10-30) L 01/29/23 07:05 Ur Barbiturates Screen Negative ng/mL (Negative) 01/29/23 07:03 Ur Phencyclidine Scrn Negative ng/mL (Negative) 01/29/23 07:03 Ur Amphetamines Screen Negative ng/mL (Negative) 01/29/23 07:03 U Benzodiazepines Scrn Negative ng/mL (Negative) 01/29/23 07:03 Urine Cocaine Screen Negative ng/mL (Negative) 01/29/23 07:03 U Marijuana (THC) Screen Negative ng/mL (Negative) 01/29/23 07:03 Ethyl Alcohol < 10 mg/dL (0-10) 01/29/23 07:05 No radiology studies performed this visit Discharge Plan Discharge Patient Disposition: Home Clinical Impression: Depression Condition: Stable Prescriptions: No Action levetiracetam [Keppra] 250 mg tablet 250 mg PO BID Qty: 60 0RF meloxicam 15 mg tablet 15 mg PO QAM Discharge Orders: Discharge ED (Routine); Ordered 01/29/23 Ordered By: Larry Chowdary Referrals: Cam Maldonado MD [Primary Care Provider] - 1-3 days Discharge Diet: Advance as tolerated Discharge Activity: Resume usual activity Patient Instructions: Depression (ED) Coding Level of Care Code ED Sonographer for [facility] Horner
--- NOTE | 2023-01-29 07:11 | PC.NURSE ---
PATIENT STATES HE IS NOT SI/HI. PATIENT STATES I AM HERE TO GET MY MEDICATIONS RIGHT. PATIENT IS REFUSING TO CHANGE INTO PAPER SCRUBS.
[2023-01-29 07:12] LABS: Basophils # 0.1 10^3/uL (0.0-0.1); Basophils % 0.5 %; Eosinophils # 0.4 10^3/uL (0.0-0.8); Eosinophils % 3.5 %; Hematocrit 46.3 % (37-53); Lymphocytes # 1.5 10^3/uL (0.8-4.8); Lymphocytes % 14.4 %; Mean Corpuscular HGB Conc 35.2 g/dL (30-55); Mean Corpuscular Hemoglobin 29.1 pg (27-33); Mean Corpuscular Volume 82.5 fl (82-101); Mean Platelet Volume 10.6 fL (7.4-10.4); Monocytes # 0.7 10^3/uL (0.2-0.9); Monocytes % 6.2 %; Neutrophils # 7.93 10^3/uL (1.8-7.7); Neutrophils % 75.1 %; Nucleated Red Blood Cells % 0 %; Platelet Count 237 10^3/cmm (157-399); Red Blood Count 5.61 10^6/uL (3.85-5.65); Red Cell Distribution Width 13.6 % (12.1-15.1); White Blood Count 10.55 10^3/uL (3.29-11.43)
[2023-01-29 07:30] LABS: Amphetamines Screen Urine Negative (Negative); Barbiturates Screen Urine Negative (Negative); Benzodiazepines Screen Urine Negative (Negative); Cocaine Screen Urine Negative (Negative); Opiate Screen Urine Negative (Negative); PCP Screen Urine Negative (Negative); THC Screen Urine Negative (Negative)
[2023-01-29 07:31] LABS: Alanine Aminotransferase 46 U/L (0-41); Albumin Level 4.7 g/dL (3.5-5.2); Alkaline Phosphatase 101 U/L (40-130); Anion Gap 15.8 (5-19); Aspartate Amino Transferase 28 U/L (0-40); Blood Urea Nitrogen 5 mg/dL (6-20); Calcium 9.5 mg/dL (8.5-10.5); Carbon Dioxide 23 mmol/L (22-29); Chloride 102 mmol/L (98-107); Globulin 2.9 g/dL (1.3-4.6); Glomerular Filtration Rate 84.5 mL/min (90-130); Glucose 139 mg/dL (65-115); Osmolality Calculated 284 mOsm/kg (285-295); Potassium 3.8 mmol/L (3.5-5.1); Sodium 137 mmol/L (136-145); Total Bilirubin 0.8 mg/dL (0.15-1.2); Total Protein 7.6 g/dL (6.6-8.7)
[2023-01-29 07:32] LABS: Acetaminophen < 5.0 ug/mL (10-30); Alcohol Level < 10 mg/dL (0-10); Salicylate < 0.3 mg/dL (3-10)
--- NOTE | 2023-01-29 08:40 | P.NPUCON_ITS ---
Providers/Reason for Consult Consulting Physican/Specialty*: Bobby Toscano MD. Psychiatry. Reason for Consult*: Evaluation for safety. Primary Care Provider: Cam Maldonado MD Psych Consult HPI History of Present Illness Raad Dasilva is a 22 year old male who presented to the emergency department with the following report: Chief Complaint: Psychiatric Symptoms Stated Complaint: SI Time Seen by Provider: 01/29/23 06:52 Source: patient and EMS Mode of arrival: EMS Limitations: no limitations History of Present Illness: 22-year-old male is here with EMS he states that he called into work this morning him and his mom got in a fight over that and he told her using a slit his wrist. He states that he is not suicidal he said he is just saying that he stated he is depressed he feels like he needs to be on meds he denies having any suicidal plan at this time. Associated symptoms: Reports depression. A psychiatric consult was requested to assess whether inpatient services were needed versus discharge. 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 He reports that he is not currently taking psychiatric medication but has in the past. He endorses having inpatient psychiatric hospitalizations during his childhood mostly secondary to issues surrounding poor impulse control and anger. He reports that he does have seizures and takes Keppra for that. He reports that he woke up this morning feeling not that good and thought to himself he needed to get his medications adjusted. So he called EMS. He reports that there have been a dispute with his mom this morning that led him to being a bit irritable. Reports are that somebody and EMS heard him say that he was going to slit his wrist or something of that nature. He reported at first that he never said it. Then he reported he did not remember saying it discussed the fact that he will sometimes say things they do not mean or say things angry in the moment. He over and over stressed that he was not suicidal had no thoughts to hurt himself or anyone else nor would he. We had a long discussion about the importance of being in care even if you are not on medication so that when rough days, you have resources in place. We also discussed at length the crisis stabilization unit and its availability times etc. Discussing that if he had a moment like he had this morning he could have a place that he could call or go to immediately and he like that idea. He had a family member in the room who was supportive of the fact that he has these intermittent explosions that do not lead to anything just angry outbursts. We reviewed his additional history developmental, family etc. and there were no issues germane to this decision today. Meds Home Medications and Allergies Home Medications Medication Instructions Recorded Confirmed Last Taken Type levetiracetam 250 mg tablet 250 mg PO BID #60 tabs 06/12/22 01/29/23 01/28/23 Rx (Keppra) meloxicam 15 mg tablet 15 mg PO QAM 01/29/23 01/29/23 01/28/23 History Allergies Allergy/AdvReac Type Severity Reaction Status Date / Time divalproex sodium Allergy Unknown Verified 01/24/23 14:44 [From Depakote] methylphenidate Allergy Unknown Verified 01/24/23 14:44 [From Ritalin] [facility] NPU PFS: Medical History No pertinent family history Surgical History No pertinent past surgical history Mental Status Exam MSE Comments: This is an overweight versus obese white male with adequate grooming and eye contact. No abnormal movements except for mild psychomotor retardation. Cooperative with exam in no acute distress. Speech was slightly decreased rate and volume and childlike with mild dysarthria. Mood described as much better, affect euthymic. Thought process linear. Thought content: Patient denied s uicidal or homicidal ideation, there were no delusions reported noted, he denied any auditory or visual hallucinations. Attention and concentration were intact and memory appeared reliable but none were formally tested. He is alert and oriented x3. Insight and judgment limited impulse control limited. Vitals/I&O/Wt Last Vital Signs Temp 98.3 F 01/29/23 06:59 Pulse 111 H 01/29/23 06:59 Resp 18 01/29/23 06:59 BP 177/123 01/29/23 06:59 Pulse Ox 95 01/29/23 06:59 O2 Del Method Room Air 01/29/23 06:59 Data NPU 01/29/23 07:05 01/29/23 07:05 A&P Assessment and plan (1) Fracture of distal phalanx of finger: Qualifiers: Encounter type: initial encounter Finger: middle finger Fracture alignment: nondisplaced Fracture type: closed Laterality: right Qualified Code(s): S62.662A - Nondisplaced fracture of distal phalanx of right middle finger, initial encounter for closed fracture (2) Contusion of right knee: Qualifiers: Encounter type: initial encounter Qualified Code(s): S80.01XA - Contusion of right knee, initial encounter (3) Gastroenteritis: (4) Depression: (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 1. Continue current medications. 2. Agree that there is no credible lethality. 3. Agree with discharge to home. 4. Encourage mental health follow-up. 5. Gave information about crisis stabilization unit for future urgent needs. Attestations NPU Medical Necessity Statement*: N/A. Please see primary team note for medical necessity but agree with discharge. Coding Level of Care Code Acute Code for [facility] Fwd Diagnoses Fracture of distal phalanx of finger S62.662A Encounter type: initial encounter Finger: middle finger Fracture alignment: nondisplaced Fracture type: closed Laterality: right Contusion of right knee S80.01XA Encounter type: initial encounter Gastroenteritis K52.9 Depression F32.A Generalized epilepsy G40.309 Borderline intellectual functioning R41.83 Intermittent explosive disorder in adult F63.81
--- NOTE | 2023-01-29 08:51 | PC.SOCIAL ---
[facility] referral Referral to [facility] at this time. Clinic to contact patient with appt date/time.
== END 2023-01-29 08:51 | disposition home or self-care (01) ==
PROVIDERS: Emergency Provider Emergency Medicine; PCP Family Medicine
DX: F32.A Depression, unspecified (principal)
CPT/HCPCS: 36415; 80053; 80306; 80307; 85025; 99283

== ENCOUNTER 2023-03-14 18:26 | Emergency (ER) | payer MEDICAID, SELFPAY ==
[2023-03-14 19:12] VITALS: BP 142/76; PULSE 91; RESP 18; TEMP 37.1; O2SAT 97; BMI 45.8
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
[2023-03-14] MEDS: naproxen 500 mg Tablet PO (19:31)
[2023-03-14] MEDS: neomycin-poly-bacitracin oint 28 gm 1 APPLIC TOPICAL (19:31)
== END 2023-03-14 19:40 | disposition home or self-care (01) ==
PROVIDERS: Emergency Provider Emergency Medicine; PCP Family Medicine
DX: T24.212A Burn of second degree of left thigh, initial encounter (principal); T31.0 Burns involving less than 10% of body surface; X10.2XXA Contact with fats and cooking oils, initial encounter
CPT/HCPCS: 99283

== ENCOUNTER 2023-03-27 11:53 | Emergency (ER) | payer MEDICAID, SELFPAY ==
[2023-03-27 12:00] VITALS: BP 124/73; PULSE 87; RESP 16; TEMP 37.1; O2SAT 96; BMI 48.7
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
[2023-03-27] MEDS: HYDROcodone-acetaminophen 5-325 mg Tablet 1 TAB PO (12:24)
--- NOTE | 2023-03-27 13:23 | DCPLANNER ---
Referral was sent to wound care on 03/27/23 at 1324. Clinic to contact patient
== END 2023-03-27 12:29 | disposition home or self-care (01) ==
PROVIDERS: Emergency Provider Emergency Medicine; PCP Family Medicine
DX: T24.212A Burn of second degree of left thigh, initial encounter (principal); T31.0 Burns involving less than 10% of body surface; X10.2XXA Contact with fats and cooking oils, initial encounter
CPT/HCPCS: 99283

== ENCOUNTER 2023-03-30 17:19 | Emergency (ER) | payer MEDICAID, SELFPAY ==
[2023-03-30 17:37] VITALS: BP 121/77; PULSE 70; RESP 14; TEMP 36.7; O2SAT 97; BMI 45.6
--- NOTE | 2023-03-30 17:53 | W.ED.URI ---
HPI - URI/Sore Throat General: Chief Complaint: Upper Respiratory Infection Stated Complaint: cough Time Seen by Provider: 03/30/23 17:42 History of Present Illness: 22-year-old male patient comes in today with cough worsening over the last 2 to 3 days. Patient appears nontoxic. Patient appears in no pain. Patient denies asthma. Patient is a smoker. Associated symptoms: Deny chest pain, fever(s), nausea or vomiting Review of Systems General: Reports: 10 or more systems reviewed and unremarkable except in HPI and below Const: Denies: fever(s) Card: Denies: chest pain Resp: Denies: dyspnea GI: Denies: nausea or vomiting : Denies: difficulty urinating Musc: Denies: neck pain or back pain Skin/Breast: Denies: rash PFSH ED PFSH: Medical History No pertinent family history Surgical History No pertinent past surgical history Physical Exam Const: COMMON NORMALS: alert HENMT: COMMON NORMALS: normocephalic HEAD & SCALP: normocephalic Neck/C-Spine: COMMON NORMALS: full ROM and no meningeal signs Resp: COMMON NORMALS: normal respiratory effort AUSCULTATION: wheezes and diminished lung sounds Cardio: COMMON NORMALS: regular rate RATE: regular rate Extremity: COMMON NORMALS: normal to inspection and no pedal edema Neuro: SENSORIUM/ORIENTATION: Yes alert MENINGEAL SIGNS: Yes no meningeal signs Skin: COMMON NORMALS: turgor normal GENERAL SKIN EXAM: turgor normal Course Vital Signs: Vital signs: Vital Signs Temperature 98.0 F 03/30/23 17:37 Pulse Rate 70 03/30/23 17:37 Respiratory Rate 14 03/30/23 17:37 Blood Pressure 121/77 03/30/23 17:37 Pulse Oximetry 97 03/30/23 17:37 Oxygen Delivery Me thod Room Air 03/30/23 17:37 MDM - URI/Sore Throat Medical Decision Making 22-year-old male comes in for complaints of cough. On exam patient appears nontoxic. Patient has decreased breath sounds with inspiratory wheezes. No respiratory distress is noted. Vital signs are normal. Differential diagnosis includes but not limited to asthma, COPD, pneumonia, upper respiratory infection, malingering. Believe patient probably has a little bit of asthma that is exacerbated by a virus. Patient be given a dose of steroid and kept on albuterol like to use as needed. Discussed need for patient to follow-up or return to the ER for worsening symptoms. No radiology studies performed this visit Discharge Plan Discharge Patient Disposition: Home Clinical Impression: Bronchial asthma Qualifiers: Asthma severity: mild Asthma persistence: intermittent Asthma complication type: with acute exacerbation Qualified Code(s): J45.21 - Mild intermittent asthma with (acute) exacerbation Condition: Stable Prescriptions: New prednisone 20 mg tablet 20 mg PO BID 5 Days Qty: 10 0RF No Action Naprosyn 500 mg tablet 500 mg PO BID PRN (Reason: pain) Qty: 20 0RF levetiracetam [Keppra] 250 mg tablet 250 mg PO BID Qty: 60 0RF meloxicam 15 mg tablet 15 mg PO QAM hydrocodone-acetaminophen 5-325 mg tablet 1 tab PO Q6H PRN (Reason: pain) Qty: 14 0RF Discharge Orders: Discharge ED (Routine); Ordered 03/30/23 Ordered By: Hamilton Richards Referrals: Cam Maldonado MD [Primary Care Provider] - Discharge Diet: Usual diet Discharge Activity: Increase activity as tolerated Patient Instructions: Acute Bronchitis (ED) Activity Restrictions/Additional Instructions: Take medications as directed. Use albuterol as needed. Return to ED for worsening symptoms such as high fever, increased shortness of breath, or new concerns. Coding Level of Care Code ED Accounts Receivable Manager for Shreya Horner
[2023-03-30] MEDS: predniSONE 20 mg Tablet 40 MG PO (18:01)
[2023-03-30 18:41] VITALS: RESP 16
--- NOTE | 2023-03-30 18:43 | PC.NURSE ---
pt refused inhaler. ED provider notified
== END 2023-03-30 18:44 | disposition home or self-care (01) ==
PROVIDERS: Emergency Provider Nurse Practitioner Family; PCP Family Medicine
DX: J45.21 Mild intermittent asthma with (acute) exacerbation (principal)
CPT/HCPCS: 99283; J7512

== ENCOUNTER 2023-05-03 01:58 | Emergency (ER) | payer MEDICAID, SELFPAY ==
[2023-05-03 02:06] VITALS: BP 139/86; PULSE 97; RESP 20; TEMP 36.6; O2SAT 95; BMI 47.4
--- NOTE | 2023-05-03 02:43 | XRR_ITS ---
PROCEDURE INFORMATION: Exam: XR Lumbosacral Spine Exam date and time: 05/03/2023 2:48 AM Age: 22 years old Clinical indication: Patient HX: C/O low back pain with radiation down RT lower ext. No injury. ; Additional info: R sided lumbar radiculopathy TECHNIQUE: Imaging protocol: Radiologic exam of the lumbosacral spine. Views: 2 or 3 views. COMPARISON: No relevant prior studies available. FINDINGS: Bones/joints: Normal. No acute fracture. Normal alignment. Soft tissues: Unremarkable. XR/XR lumbar spine 2-3V* [id number] IMPRESSION: No acute findings.
[2023-05-03] MEDS: dexamethasone 4 mg Tablet 10 MG PO (02:52)
[2023-05-03] MEDS: oxyCODONE-APAP 5-325 mg Tablet 1 TAB PO (02:52)
[2023-05-03] MEDS: orphenadrine 30 mg/mL Inj 2 mL 60 MG IM (02:54)
[2023-05-03] MEDS: ketorolac 60 mg/2 mL INJ IM (02:54)
[2023-05-03 02:57] VITALS: BP 133/69; PULSE 101; RESP 18; O2SAT 95
[2023-05-03 03:51] VITALS: PULSE 100; RESP 20; O2SAT 97
--- NOTE | 2023-05-03 05:22 | ED_ITS ---
HPI - Back Pain/Injury General: Chief Complaint: Back Pain/Injury Stated Complaint: lower back down right leg sharp pain Time Seen by Provider: 05/03/23 02:33 History of Present Illness: 22-year-old male presenting with lower b ack pain radiating down his right posterior and lateral thigh. He radiates past his knee. It is painful to bear weight on that side. No foot drop. No loss of bowel or bladder function. No fever. Associated symptoms: Deny abdominal pain, fever(s) or vomiting Review of Systems Const: Denies: fever(s) Card: Denies: chest pain or palpitations Resp: Denies: dyspnea GI: Denies: abdominal pain or vomiting : Denies: flank pain Musc: Reports: back pain Skin/Breast: Denies: rash PFSH ED PFSH: Medical History No pertinent family history Surgical History No pertinent past surgical history Physical Exam Const: COMMON NORMALS: no acute distress GENERAL APPEARANCE: cooperative; not ill appearing and not frail appearing HENMT: COMMON NORMALS: normocephalic, atraumatic and Normal external nose present HEAD & SCALP: normocephalic and atraumatic FACE & SINUS: normal facial exam and face symmetric NOSE: Normal external nose present Eye: COMMON NORMALS: Equal, round and reactive pupils present and EOMs intact bilaterally PUPIL: Yes Equal, round and reactive pupils present Neck/C-Spine: GENERAL: Yes trachea midline Chest: CHEST: Yes Symmetrical chest wall rise Resp: COMMON NORMALS: normal respiratory effort, No retractions, No use of accessory muscles and clear to auscultation bilaterally AUSCULTATION: clear to auscultation bilaterally Cardio: COMMON NORMALS: regular rate and regular rhythm RATE: regular rate RHYTHM: regular rhythm GI: COMMON NORMALS: Normal to inspection, nondistended, normoactive bowel sounds present : COMMON NORMALS: Yes no CVA tenderness BLADDER/KIDNEY EXAM: Yes no CVA tenderness Back/Pelvis: COMMON NORMALS: no CVA tenderness OTHER: Straight leg raise causes some radicular pain to the knee. There is mild tenderness over the midline and just right of the midline at the lumbosacral junction. No deformity. Sensation and vascular intact distally. Extremity: COMMON NORMALS: no pedal edema Neuro: JA COMA SCALE: document GCS findings [place] coma scale eye opening: Spontaneous [place] coma scale verbal response: Orientated [place] coma scale motor response: Obey commands Ja coma scale total score: 15 SENSORY EXAM: Yes extremities (intact) Psych: COMMON NORMALS: speech normal SPEECH: Yes normal speech Skin: COMMON NORMALS: no rashes or lesions noted GENERAL SKIN EXAM: no rashes or lesions noted Course Vital Signs: Vital signs: Vital Signs Temperature 98 F 05/03/23 02:06 Pulse Rate 100 05/03/23 03:51 Respiratory Rate 20 H 05/03/23 03:51 Blood Pressure 133/69 05/03/23 02:57 Pulse Oximetry 97 05/03/23 03:51 Oxygen Delivery Me thod Room Air 05/03/23 02:57 MDM - Back Pain/Injury Medical Decision Making Patient has a straight leg raise positive test on the right. His x-ray is normal. Will treat him for a lumbar radiculopathy. Outpatient follow-up. Return for red flag symptoms. Labs Radiology Impressions Lumbar Spine X-Ray 05/03/23 02:43 IMPRESSION: No acute findings. All radiology interpretation(s) finalized by discharge Discharge Plan Discharge Patient Disposition: Home Clinical Impression: Lumbar radiculopathy Condition: Stable Prescriptions: New ketorolac 10 mg tablet 10 mg PO TID PRN (Reason: pain) Qty: 10 0RF cyclobenzaprine 10 mg tablet 10 mg PO Q8H Qty: 14 0RF Discontinued naproxen [Naprosyn] 500 mg tablet 500 mg PO BID PRN (Reason: pain) Qty: 20 0RF meloxicam 15 mg tablet 15 mg PO QAM No Action levetiracetam [Keppra] 250 mg tablet 250 mg PO BID Qty: 60 0RF hydrocodone-acetaminophen 5-325 mg tablet 1 tab PO Q6H PRN (Reason: pain) Qty: 14 0RF Discharge Orders: Discharge ED (Routine); Ordered 05/03/23 Ordered By: Damaso Tejada Referrals: Cam Maldonado MD [Primary Care Provider] - 1-3 days Patient Instructions: Lumbar Radiculopathy (ED), Opioid Safety, Pain Management Activity Restrictions/Additional Instructions: Take medication as directed. Return for fever, loss of control of your bowel or bladder function, other concerning symptoms. See your doctor next week. Coding Level of Care Code ED Build Manager for Shreya Horner
== END 2023-05-03 03:52 | disposition home or self-care (01) ==
PROVIDERS: Emergency Provider Emergency Medicine; PCP Family Medicine
DX: M54.16 Radiculopathy, lumbar region (principal)
CPT/HCPCS: 72100; 96372; 99284; J1885; J2360; J8540

== ENCOUNTER 2023-06-10 08:20 | Emergency (ER) | payer MEDICAID, SELFPAY ==
[2023-06-10 08:26] VITALS: BP 164/86; PULSE 84; RESP 18; TEMP 36.4; O2SAT 100; BMI 34.4
--- NOTE | 2023-06-10 08:26 | XRR_ITS ---
PROCEDURE INFORMATION: Exam: XR Left Finger(s) Exam date and time: 06/10/2023 8:34 AM Age: 23 years old Clinical indication: Pain; Finger(s); Left; Additional info: 3rd TECHNIQUE: Imaging protocol: Radiologic exam of the left fingers. Views: Minimum 2 views. COMPARISON: No relevant prior studies available. FINDINGS: Bones/joints: Two views of the left middle finger demonstrate no evidence of acute fracture or subluxation. Soft tissues: No soft tissue gas or radiodense foreign body. XR/XR finger LT min 2V [id number] IMPRESSION: No acute abnormality detected.
[2023-06-10 08:30] VITALS: BP 164/86; PULSE 84; RESP 18; O2SAT 100
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
[2023-06-10 09:13] VITALS: BP 164/86; PULSE 84; RESP 18; TEMP 36.4; O2SAT 100
== END 2023-06-10 09:16 | disposition home or self-care (01) ==
PROVIDERS: Emergency Provider Family Medicine
DX: M79.642 Pain in left hand (principal)
CPT/HCPCS: 73130; 73140; 99283

== ENCOUNTER 2023-07-02 17:48 | Emergency (ER) | payer MEDICAID, SELFPAY ==
[2023-07-02 17:51] VITALS: BP 144/84; PULSE 79; RESP 15; TEMP 36.8; O2SAT 98
--- NOTE | 2023-07-02 17:53 | ED_ITS ---
HPI - Seizure 2 General: Chief Complaint: Seizure Stated Complaint: Seizures Time Seen by Provider: 07/02/23 17:51 History of Present Illness: HPI Narrative: 23-year-old male patient was brought in by EMS for concerns of a seizure. Seizure occurred while patient was incarcerated at the [facility]. Seizure was unwitnessed. Residential attendant states that he was what they thought may be seizing for about 8 to 10 minutes. Incident occurred around 5:15 o'clock. Patient is alert and oriented and appears nontoxic. Patient does not appear somnolent. Patient did not have any incontinence. Seizure History: Yes Review of Systems 2 General: Reports: 10 or more systems reviewed and unremarkable except in HPI and below PFSH ED 2 PFSH: Medical History No pertinent family history Surgical History No pertinent past surgical history Physical Exam 2 Const: COMMON NORMALS: alert Resp: COMMON NORMALS: normal respiratory effort and clear to auscultation bilaterally AUSCULTATION: clear to auscultation bilaterally Cardio: COMMON NORMALS: regular rate and regular rhythm RATE: regular rate RHYTHM: regular rhythm GI: COMMON NORMALS: non-tender Extremity: COMMON NORMALS: no pedal edema Neuro: SENSORIUM/ORIENTATION: Yes alert Skin: COMMON NORMALS: turgor normal GENERAL SKIN EXAM: turgor normal Course 2 Vital Signs: Vital signs: Vital Signs Temperature 98.2 F 07/02/23 17:51 Pulse Rate 63 07/02/23 18:06 Respiratory Rate 17 07/02/23 18:06 Blood Pressure 144/84 07/02/23 18:06 Pulse Oximetry 98 07/02/23 18:06 Oxygen Delivery Me thod Room Air 07/02/23 17:51 MDM - Seizure MDM Narrative Medical decision making narrative: Patient comes in today for evaluation of seizure activity. Patient routinely takes Keppra 1000 mg twice a day for his seizures. Patient at this time has reported to having a seizure that lasted 8 to 10 minutes at the [facility]. On exam patient appears nontoxic. Patient is alert and oriented. Patient was all extremities well. No reported incontinence was noted. No bruising is noted to the tongue. Abdomen soft nontender. Skin is warm and dry. Vital signs are normal. Differential diagnosis includes but not limited to malingering, anxiety, epileptic seizure, nonepileptic seizure. CBC, CMP, drug screen and urinalysis were unremarkable. Patient did have positive THC in urine. No signs or symptoms of serious illness or injury was noted on exam. Reviewed exam with patient with recommendations for treatment and follow-up with primary care. Patient was stable and discharged back to half-way with recommendations to follow-up with primary care or return to the ER for worsening symptoms or new concerns. Lab Data 07/02/23 17:50 07/02/23 17:50 Labs: Laboratory Results WBC 8.04 10^3/uL (3.29-11.43) 07/02/23 17:50 RBC 5.72 10^6/uL (3.85-5.65) H 07/02/23 17:50 Hgb 16.70 g/dL (11.27-16.99) 07/02/23 17:50 Hct 47.9 % (37-53) 07/02/23 17:50 MCV 83.7 fl (82-101) 07/02/23 17:50 MCH 29.2 pg (27-33) 07/02/23 17:50 MCHC 34.9 g/dL (30-55) 07/02/23 17:50 RDW 13.8 % (12.1-15.1) 07/02/23 17:50 Plt Count 214 10^3/cmm (157-399) 07/02/23 17:50 MPV 10.7 fL (7.4-10.4) H 07/02/23 17:50 Neut % (Auto) 69.9 % 07/02/23 17:50 Lymph % (Auto) 20.8 % 07/02/23 17:50 [place] % (Auto) 6.6 % 07/02/23 17:50 Eos % (Auto) 1.9 % 07/02/23 17:50 Baso % (Auto) 0.4 % 07/02/23 17:50 Neut # (Auto) 5.63 10^3/uL (1.8-7.7) 07/02/23 17:50 Lymph # (Auto) 1.7 10^3/uL (0.8-4.8) 07/02/23 17:50 [place] # (Auto) 0.5 10^3/uL (0.2-0.9) 07/02/23 17:50 Eos # (Auto) 0.2 10^3/uL (0.0-0.8) 07/02/23 17:50 Baso # (Auto) 0.0 10^3/uL (0.0-0.1) 07/02/23 17:50 Nucleated RBC % (auto) 0 % 07/02/23 17:50 Nucleated RBCs # 0.0 /100WBC 07/02/23 17:50 Sodium 140 mmol/L (136-145) 07/02/23 17:50 Potassium 3.9 mmol/L (3.5-5.1) 07/02/23 17:50 Chloride 102 mmol/L (98-107) 07/02/23 17:50 Carbon Dioxide 25 mmol/L (22-29) 07/02/23 17:50 Anion Gap 16.9 (5-19) 07/02/23 17:50 BUN 13 mg/dL (6-20) 07/02/23 17:50 Creatinine 1.0 mg/dL (0.7-1.2) 07/02/23 17:50 GFR Calculation 93.4 mL/min (90-130) 07/02/23 17:50 Glucose 92 mg/dL (65-115) 07/02/23 17:50 Calculated Osmolality 290 mOsm/kg (285-295) 07/02/23 17:50 Calcium 9.9 mg/dL (8.5-10.5) 07/02/23 17:50 Total Bilirubin 0.7 mg/dL (0.15-1.2) 07/02/23 17:50 AST 21 U/L (0-40) 07/02/23 17:50 ALT 41 U/L (0-41) 07/02/23 17:50 Alkaline Phosphatase 91 U/L (40-130) 07/02/23 17:50 Total Protein 7.5 g/dL (6.6-8.7) 07/02/23 17:50 Albumin 5.0 g/dL (3.5-5.2) 07/02/23 17:50 Globulin 2.5 g/dL (1.3-4.6) 07/02/23 17:50 Urine Color Yellow (Yellow) 07/02/23 18:12 Urine Appearance Clear (CLEAR) 07/02/23 18:12 Urine pH 5 (5-7) 07/02/23 18:12 Ur Specific [place] 1.010 (1.005-1.030) 07/02/23 18:12 Urine Protein Neg (Negative) 07/02/23 18:12 Urine Glucose (UA) Norm (Normal) 07/02/23 18:12 Urine Ketones Negative (Negative) 07/02/23 18:12 Urine Blood Neg (Negative) 07/02/23 18:12 Urine Nitrate Negative (Negative) 07/02/23 18:12 Urine Bilirubin Neg (Negative) 07/02/23 18:12 Urine Urobilinogen Norm mg/dL (Negative) 07/02/23 18:12 Ur Leukocyte Esterase Negative (Negative) 07/02/23 18:12 Urine Opiates Screen Negative ng/mL (Negative) 07/02/23 18:12 Ur Barbiturates Screen Negative ng/mL (Negative) 07/02/23 18:12 Ur Phencyclidine Scrn Negative ng/mL (Negative) 07/02/23 18:12 Ur Amphetamines Screen Negative ng/mL (Negative) 07/02/23 18:12 U Benzodiazepines Scrn Negative ng/mL (Negative) 07/02/23 18:12 Urine Cocaine Screen Negative ng/mL (Negative) 07/02/23 18:12 U Marijuana (THC) Screen Positive ng/mL (Negative) H 07/02/23 18:12 No radiology studies performed this visit Discharge Plan Discharge Patient Disposition: Home Clinical Impression: Generalized epilepsy, Borderline intellectual functioning, Intermittent explosive disorder in adult Condition: Stable Prescriptions: No Action meloxicam 15 mg tablet PO prednisone 20 mg tablet 60 mg PO DAILY 5 Days Qty: 15 0RF methocarbamol 750 mg tablet 750 mg PO Q8H Qty: 30 0RF levetiracetam [Keppra] 250 mg tablet 250 mg PO BID Qty: 60 0RF Discharge Orders: Discharge ED (Routine); Ordered 07/02/23 Ordered By: Hamilton Richards Discharge Diet: Usual diet Discharge Activity: Increase activity as tolerated Patient Instructions: Epilepsy (ED) Activity Restrictions/Additional Instructions: Your labs were normal. You should continue with your routine medications as prescribed. Drink plenty of water and eat a healthy diet. Follow-up with primary care for further instructions. Return to ED for worsening symptoms or new concerns. Coding Level of Care Code ED [employer] for Shreya Horner
[2023-07-02 18:06] VITALS: BP 144/84; PULSE 63; RESP 17; O2SAT 98
[2023-07-02 18:16] LABS: Basophils % 0.4 %; Eosinophils # 0.2 10^3/uL (0.0-0.8); Eosinophils % 1.9 %; Hematocrit 47.9 % (37-53); Lymphocytes # 1.7 10^3/uL (0.8-4.8); Lymphocytes % 20.8 %; Mean Corpuscular HGB Conc 34.9 g/dL (30-55); Mean Corpuscular Hemoglobin 29.2 pg (27-33); Mean Corpuscular Volume 83.7 fl (82-101); Mean Platelet Volume 10.7 fL (7.4-10.4); Monocytes # 0.5 10^3/uL (0.2-0.9); Monocytes % 6.6 %; Neutrophils # 5.63 10^3/uL (1.8-7.7); Neutrophils % 69.9 %; Nucleated Red Blood Cells % 0 %; Platelet Count 214 10^3/cmm (157-399); Red Blood Count 5.72 10^6/uL (3.85-5.65); Red Cell Distribution Width 13.8 % (12.1-15.1); White Blood Count 8.04 10^3/uL (3.29-11.43)
[2023-07-02 18:24] LABS: Alanine Aminotransferase 41 U/L (0-41); Alkaline Phosphatase 91 U/L (40-130); Anion Gap 16.9 (5-19); Aspartate Amino Transferase 21 U/L (0-40); Blood Urea Nitrogen 13 mg/dL (6-20); Calcium 9.9 mg/dL (8.5-10.5); Carbon Dioxide 25 mmol/L (22-29); Chloride 102 mmol/L (98-107); Globulin 2.5 g/dL (1.3-4.6); Glomerular Filtration Rate 93.4 mL/min (90-130); Glucose 92 mg/dL (65-115); Osmolality Calculated 290 mOsm/kg (285-295); Potassium 3.9 mmol/L (3.5-5.1); Sodium 140 mmol/L (136-145); Total Bilirubin 0.7 mg/dL (0.15-1.2); Total Protein 7.5 g/dL (6.6-8.7)
[2023-07-02 18:27] LABS: Add Urine Microscopic? NO; Charge for UA Resulting for Rev
[2023-07-02 18:31] LABS: Bilirubin Urine Neg (Negative); Blood Urine Neg (Negative); Glucose Urine UA Norm (Normal); Ketones Urine Negative (Negative); Leukocyte Esterase Urine Negative (Negative); Nitrate Urine Negative (Negative); Protein Urine Neg (Negative); Urine Appearance Clear (CLEAR); Urine Color Yellow (Yellow); Urobilinogen Urine Norm (Negative); pH Urine 5 (5-7)
[2023-07-02 18:40] LABS: Amphetamines Screen Urine Negative (Negative); Barbiturates Screen Urine Negative (Negative); Benzodiazepines Screen Urine Negative (Negative); Cocaine Screen Urine Negative (Negative); Opiate Screen Urine Negative (Negative); PCP Screen Urine Negative (Negative); THC Screen Urine Positive (Negative)
== END 2023-07-02 19:11 | disposition home or self-care (01) ==
PROVIDERS: Emergency Provider Nurse Practitioner Family
DX: G40.409 Other generalized epilepsy and epileptic syndromes, not intractable, without status epilepticus (principal); F63.81 Intermittent explosive disorder; R41.83 Borderline intellectual functioning
CPT/HCPCS: 80053; 80306; 81003; 85025; 99283

== ENCOUNTER 2023-07-07 16:39 | Emergency (ER) | payer MEDICAID, SELFPAY ==
[2023-07-07 16:42] VITALS: BP 141/85; PULSE 85; RESP 18; TEMP 36.5; O2SAT 98; BMI 42.8
--- NOTE | 2023-07-07 16:53 | W.ED.EXTPRO ---
HPI - Extremity Problem General: Chief complaint: Extremity Injury, Lower Stated complaint: side pain Time Seen by Provider: 07/07/23 16:51 Source: patient Mode of arrival: ambulatory Limitations: no limitations History of Present Illness: 23-year-old male states he had a seizure last night and feels like he strained his foot from his seizure he has been having right foot pain. Denies any other injuries states it is worse with ambulation but is able to ambulate. Associated symptoms: Deny chest pain, fever(s) or rash Review of Systems Const: Denies: fever(s), chills, body aches or change in appetite ENMT: Denies: throat pain or dental pain Card: Denies: chest pain Resp: Denies: dyspnea GI: Denies: abdominal pain, nausea, vomiting or diarrhea Musc: Reports: extremity pain; Denies: neck pain or back pain Skin/Breast: Denies: rash Neuro: Denies: headache(s) PFS ED PFSH: Medical History No pertinent family history Surgical History No pertinent past surgical history Physical Exam Const: COMMON NORMALS: no acute distress, patient oriented x3 and healthy appearing HENMT: COMMON NORMALS: normocephalic and atraumatic HEAD & SCALP: normocephalic and atraumatic Neck/C-Spine: COMMON NORMALS: full ROM and supple Chest: COMMONS NORMALS: normal inspection of the chest Resp: COMMON NORMALS: normal respiratory effort Cardio: COMMON NORMALS: regular rate, regular rhythm and No murmurs present (Cardio) RATE: regular rate RHYTHM: regular rhythm Extremity: COMMON NORMALS: full ROM NARRATIVE EXTREMITY EXAM: slight tenderness of right foot no abnormality Neuro: COMMON NORMALS: patient oriented x3, moves all extremities and no focal motor deficits Psych: COMMON NORMALS: mental status grossly normal, Normal thought process present and cooperative THOUGHT PROCESS: Normal thought process present Skin: COMMON NORMALS: no rashes or lesions noted and no wounds GENERAL SKIN EXAM: no rashes or lesions noted Course Vital Signs: Vital signs: Vital Signs Temperature 97.7 F 07/07/23 16:42 Pulse Rate 85 07/07/23 16:42 Respiratory Rate 18 07/07/23 16:42 Blood Pressure 141/85 07/07/23 16:42 Pulse Oximetry 98 07/07/23 16:42 MDM - Extremity (Nontraumatic) Medical Decision Making Patient presented here with right foot pain after a seizure patient refused his x-ray and signed out AGAINST MEDICAL ADVICE Medical Records I reviewed the patient's medical records. No radiology studies performed this visit Discharge Plan Discharge Condition: Stable Prescriptions: No Action meloxicam 15 mg tablet PO prednisone 20 mg tablet 60 mg PO DAILY 5 Days Qty: 15 0RF methocarbamol 750 mg tablet 750 mg PO Q8H Qty: 30 0RF levetiracetam [Keppra] 250 mg tablet 250 mg PO BID Qty: 60 0RF Coding Level of Care Code ED Steward/Stewardess [employer] for Shreya Horner
== END 2023-07-07 17:21 | disposition left against medical advice (07) ==
PROVIDERS: Emergency Provider Emergency Medicine
DX: M79.671 Pain in right foot (principal); R56.9 Unspecified convulsions; Z53.29 Procedure and treatment not carried out because of patient's decision for other reasons
CPT/HCPCS: 99284

== ENCOUNTER 2023-12-21 19:47 | Emergency (ER) | payer MEDICAID, SELFPAY ==
[2023-12-21 19:54] VITALS: BP 145/84; PULSE 97; RESP 20; TEMP 37.7; O2SAT 97; BMI 34.0
--- NOTE | 2023-12-21 20:00 | CTR_ITS ---
PROCEDURE INFORMATION: Exam: CT Abdomen And Pelvis With Contrast Exam date and time: 12/21/2023 8:41 PM Age: 23 years old Clinical indication: Abdominal pain; Generalized; Patient HX: Diffuse abd pain with nausea and diarrhea. ; Additional info: Gen abd pain TECHNIQUE: Imaging protocol: Computed tomography of the abdomen and pelvis with contrast. Radiation optimization: All CT scans at this facility use at least one of these dose optimization techniques: automated exposure control; mA and/or kV adjustment per patient size (includes targeted exams where dose is matched to clinical indication); or iterative reconstruction. Contrast material: OMNI 350; Contrast volume: 100 ml; Contrast route: INTRAVENOUS (IV); COMPARISON: CR XR lumbar spine 2-3V* [id number] 05/03/2023 2:48 AM RADIATION DOSE METRICS: Total DLP (mGy-cm): 920.28 FINDINGS: Lungs: The visualized portions of the lungs are unremarkable. Liver: The liver is unremarkable. Gallbladder and biliary ducts: The gallbladder is normal. No biliary dilation. Pancreas: The pancreas is unremarkable. Spleen: The spleen is unremarkable. Adrenal glands: The adrenal glands are normal. Kidneys and ureters: The kidneys are unremarkable. Stomach and bowel: Diffuse wall thickening of the terminal and distal ileum. Diffuse fluid attenuation of the colon and bowel. Appendix: A normal appendix is identified. Intraperitoneal space: No significant peritoneal free fluid. No free peritoneal air. Vasculature: The vasculature is unremarkable. No aneurysm. Lymph nodes: No enlarged lymph nodes by size criteria. Urinary bladder: There is diffuse bladder wall thickening. Reproductive: Visualized portions of the male reproductive tract are unremarkable, though routine CT is limited in this regard. Bones/joints: Lumbarized S1 vertebra. The bones are otherwise unremarkable. Soft tissues: Soft tissues are unremarkable as visualized. CT/CT abdomen pelvis w con* [id number] IMPRESSION: 1. Diffuse wall thickening of the terminal and distal ileum, consistent with enteritis. 2. Diffuse fluid attenuation of the colon and bowel, correlate for diarrhea. 3. Diffuse bladder wall thickening, suggestive of cystitis, which may be reactive in the setting of adjacent inflammation.
--- NOTE | 2023-12-21 20:02 | ED_ITS ---
HPI - Abdominal Pain 2 General: Chief Complaint: Abdominal Pain Stated Complaint: abd pain Time Seen by Provider: 12/21/23 19:59 History of Present Illness: 23-year-old male patient comes in today with abdominal pain and nausea starting this morning. Patient reports inability to eat food because of his discomfort. Patient also reports some occasional diarrhea. Patient appears nontoxic. Patient appears mildly unwell. Patient appears in mild pain. Related Data Home Medications Medication Instructions Recorded Confirmed meloxicam 15 mg tablet mg PO 06/21/23 10/10/23 albuterol sulfate 90 mcg/actuation inhalation 10/10/23 10/10/23 aerosol inhaler (Ventolin HFA) cetirizine 10 mg tablet mg PO 10/10/23 10/10/23 diclofenac sodium 75 mg mg PO 10/10/23 10/10/23 tablet,delayed release doxepin 10 mg capsule mg PO 10/10/23 10/10/23 epinephrine 0.3 mg/0.3 mL IM 10/10/23 10/10/23 injection, auto-injector topiramate 50 mg tablet mg PO 10/10/23 10/10/23 Previous Rx's Medication Instructions Recorded methocarbamol 750 mg tablet 750 mg PO Q8H #30 tabs 06/21/23 prednisone 20 mg tablet 60 mg (3 x 20 mg) PO DAILY 5 days 06/21/23 #15 tabs levetiracetam 1,000 mg tablet 1,000 mg PO BID #180 tabs 10/17/23 dicyclomine 10 mg capsule 10 mg PO QID PRN abdominal pain 12/21/23 #20 caps ondansetron 4 mg disintegrating 4 mg PO Q8H PRN nausea and 12/21/23 tablet vomiting #10 tabs Allergies Allergy/AdvReac Type Severity Reaction Status Date / Time banana Allergy ALGY-Anaphy Verified 12/21/23 19:58 laxis divalproex sodium Allergy Unknown Verified 12/21/23 19:58 [From Depakote] methylphenidate Allergy Unknown Verified 12/21/23 19:58 [From Ritalin] strawberry Allergy ALGY-Anaphy Verified 12/21/23 19:58 laxis blueberries Allergy ALGY-Anaphy Uncoded 12/21/23 19:58 laxis bahraini rolls Allergy ALGY-Anaphy Uncoded 12/21/23 19:58 laxis Review of Systems 2 General: Reports: 10 or more systems reviewed and unremarkable except in HPI and below PFSH ED 2 PFSH: Medical History No pertinent family history Surgical History No pertinent past surgical history Physical Exam 2 Const: COMMON NORMALS: alert HENMT: COMMON NORMALS: normocephalic HEAD & SCALP: normocephalic Neck/C-Spine: COMMON NORMALS: full ROM Resp: COMMON NORMALS: normal respiratory effort and clear to auscultation bilaterally AUSCULTATION: clear to auscultation bilaterally Cardio: COMMON NORMALS: regular rate and regular rhythm RATE: regular rate RHYTHM: regular rhythm GI: COMMON NORMALS: Soft to palpation PALPATION: Yes Soft to palpation and Yes Tenderness to palpation present (GI) (Generalized) : COMMON NORMALS: Yes no CVA tenderness BLADDER/KIDNEY EXAM: Yes no CVA tenderness Back/Pelvis: COMMON NORMALS: no CVA tenderness Extremity: COMMON NORMALS: no pedal edema Neuro: SENSORIUM/ORIENTATION: Yes alert Skin: COMMON NORMALS: turgor normal GENERAL SKIN EXAM: turgor normal Course 2 Vital Signs: Vital signs: Vital Signs Temperature 99.8 F H 12/21/23 19:54 Pulse Rate 88 12/21/23 21:31 Respiratory Rate 18 12/21/23 21:31 Blood Pressure 95/56 12/21/23 21:31 Pulse Oximetry 98 12/21/23 21:31 Oxygen Delivery Me thod Room Air 12/21/23 19:54 MDM - Abdominal Pain Medical Decision Making Patient comes in today with abdominal pain starting this morning and nausea. Patient also reports some episodes of diarrhea. On exam abdomen is generalized tender but soft. Bowel sounds are normal active. Vital signs are normal except for some mild elevation in respirations at 20 and mild elevation in temperature at 99.8. Differential diagnosis includes not limited to appendicitis, gastroenteritis, dehydration, enterocolitis. CBC notes white count of 11.75, CMP notes bilirubin 1.6, CRP 90, urine specific gravity 1.037. CT of the abdomen pelvis noted some diffuse thickening of the wall of the distal ileum consistent with enteritis, fluid attenuation in the colon and bowel related to diarrhea, and some wall thickening suggestive of some may be some cystitis or adjacent inflammation. Patient was given 1 L of IV fluids and medications for pain and nausea. Patient be continued at home with Bentyl and Zofran for symptoms. Patient be treated for gastroenteritis with recommendations to follow-up with primary care for persistent symptoms. Patient reported understanding agreed to plan. Lab Data 12/21/23 20:08 12/21/23 20:08 Labs/Radiology: Radiology Impressions Abdomen/Pelvis CT 12/21/23 20:00 IMPRESSION: 1. Diffuse wall thickening of the terminal and distal ileum, consistent with enteritis. 2. Diffuse fluid attenuation of the colon and bowel, correlate for diarrhea. 3. Diffuse bladder wall thickening, suggestive of cystitis, which may be reactive in the setting of adjacent inflammation. Laboratory Results WBC 11.75 10^3/uL (3.29-11.43) H 12/21/23 20:08 RBC 5.69 10^6/uL (3.85-5.65) H 12/21/23 20:08 Hgb 16.60 g/dL (11.27-16.99) 12/21/23 20:08 Hct 48.7 % (37-53) 12/21/23 20:08 MCV 85.6 fl (82-101) 12/21/23 20:08 MCH 29.2 pg (27-33) 12/21/23 20:08 MCHC 34.1 g/dL (30-55) 12/21/23 20:08 RDW 13.2 % (12.1-15.1) 12/21/23 20:08 Plt Count 189 10^3/cmm (157-399) 12/21/23 20:08 MPV 10.8 fL (7.4-10.4) H 12/21/23 20:08 Neut % (Auto) 86.7 % 12/21/23 20:08 Lymph % (Auto) 6.0 % 12/21/23 20:08 [place] % (Auto) 6.4 % 12/21/23 20:08 Eos % (Auto) 0.3 % 12/21/23 20:08 Baso % (Auto) 0.3 % 12/21/23 20:08 Neut # (Auto) 10.19 10^3/uL (1.8-7.7) H 12/21/23 20:08 Lymph # (Auto) 0.7 10^3/uL (0.8-4.8) L 12/21/23 20:08 [place] # (Auto) 0.8 10^3/uL (0.2-0.9) 12/21/23 20:08 Eos # (Auto) 0.0 10^3/uL (0.0-0.8) 12/21/23 20:08 Baso # (Auto) 0.0 10^3/uL (0.0-0.1) 12/21/23 20:08 Nucleated RBC % (auto) 0 % 12/21/23 20:08 Nucleated RBCs # 0.0 /100WBC 12/21/23 20:08 Sodium 137 mmol/L (136-145) 12/21/23 20:08 Potassium 3.5 mmol/L (3.5-5.1) 12/21/23 20:08 Chloride 99 mmol/L (98-107) 12/21/23 20:08 Carbon Dioxide 20 mmol/L (22-29) L 12/21/23 20:08 Anion Gap 21.5 (5-19) H 12/21/23 20:08 BUN 19 mg/dL (6-20) 12/21/23 20:08 Creatinine 1.2 mg/dL (0.7-1.2) 12/21/23 20:08 GFR Calculation 75.7 mL/min (90-130) L 12/21/23 20:08 Glucose 100 mg/dL (65-115) 12/21/23 20:08 Calculated Osmolality 286 mOsm/kg (285-295) 12/21/23 20:08 Lactic Acid 0.9 mmol/L (0.5-2.2) 12/21/23 20:08 Calcium 9.6 mg/dL (8.5-10.5) 12/21/23 20:08 Total Bilirubin 1.6 mg/dL (0.15-1.2) H 12/21/23 20:08 AST 21 U/L (0-40) 12/21/23 20:08 ALT 23 U/L (0-41) 12/21/23 20:08 Alkaline Phosphatase 89 U/L (40-130) 12/21/23 20:08 C-Reactive Protein 90.1 mg/L (0.0-4.9) H 12/21/23 20:08 Total Protein 7.4 g/dL (6.6-8.7) 12/21/23 20:08 Albumin 4.7 g/dL (3.5-5.2) 12/21/23 20:08 Globulin 2.7 g/dL (1.3-4.6) 12/21/23 20:08 Lipase 17 U/L (13-60) 12/21/23 20:08 Urine Color [place] (Yellow) A 12/21/23 20:47 Urine Appearance Clear (CLEAR) 12/21/23 20:47 Urine pH 5.5 (5-7) 12/21/23 20:47 Ur Specific [place] 1.037 (1.005-1.030) H 12/21/23 20:47 Urine Protein 1+ (Negative) A 12/21/23 20:47 Urine Glucose (UA) Negative (Normal) 12/21/23 20:47 Urine Ketones 3+ (Negative) H 12/21/23 20:47 Urine Blood Negative (Negative) 12/21/23 20:47 Urine Nitrate Positive (Negative) A 12/21/23 20:47 Urine Bilirubin 2+ (Negative) H 12/21/23 20:47 Urine Urobilinogen 1.0 mg/dL (Negative) 12/21/23 20:47 Ur Leukocyte Esterase Trace (Negative) A 12/21/23 20:47 Urine RBC 3-5 /hpf (0-2) 12/21/23 20:47 Urine WBC 0-5 /hpf (0-5) 12/21/23 20:47 Ur Squamous Epith Cells 0-5 /hpf (0-5) 12/21/23 20:47 Amorphous Sediment Not Reportable 12/21/23 20:47 Urine Bacteria None seen /hpf (NONE) 12/21/23 20:47 Hyaline Casts 2.05 /lpf 12/21/23 20:47 All radiology interpretation(s) finalized by discharge Discharge Plan Discharge Patient Disposition: Home Clinical Impression: Gastroenteritis Condition: Stable Prescriptions: New ondansetron 4 mg tablet,disintegrating 4 mg PO Q8H PRN (Reason: nausea and vomiting) Qty: 10 0RF dicyclomine 10 mg capsule 10 mg PO QID PRN (Reason: abdominal pain) Qty: 20 0RF No Action epinephrine 0.3 mg/0.3 mL auto-injector IM topiramate 50 mg tablet PO doxepin 10 mg capsule PO cetirizine 10 mg tablet PO albuterol sulfate [Ventolin HFA] 90 mcg/actuation HFA aerosol inhaler inhalation diclofenac sodium 75 mg tablet,delayed release (DR/EC) PO levetiracetam 1,000 mg tablet 1,000 mg PO BID Qty: 180 0RF meloxicam 15 mg tablet PO prednisone 20 mg tablet 60 mg PO DAILY 5 Days Qty: 15 0RF methocarbamol 750 mg tablet 750 mg PO Q8H Qty: 30 0RF Discharge Orders: Discharge ED (Routine); Ordered 12/21/23 Ordered By: Hamilton Richards Discharge Diet: Usual diet Discharge Activity: Increase activity as tolerated Patient Instructions: Gastroenteritis (ED) Activity Restrictions/Additional Instructions: Drink plenty of water and fluids. Take frequent sips to maintain hydration. Use an electrolyte solution like Gatorade or Pedialyte in order to maintain hydration. Use a dancer [place] Coding Level of Care Code ED T[employer]or [employer] for [employer]
[2023-12-21 20:21] LABS: Basophils % 0.3 %; Eosinophils % 0.3 %; Hematocrit 48.7 % (37-53); Lymphocytes # 0.7 10^3/uL (0.8-4.8); Mean Corpuscular HGB Conc 34.1 g/dL (30-55); Mean Corpuscular Hemoglobin 29.2 pg (27-33); Mean Corpuscular Volume 85.6 fl (82-101); Mean Platelet Volume 10.8 fL (7.4-10.4); Monocytes # 0.8 10^3/uL (0.2-0.9); Monocytes % 6.4 %; Neutrophils # 10.19 10^3/uL (1.8-7.7); Neutrophils % 86.7 %; Nucleated Red Blood Cells % 0 %; Platelet Count 189 10^3/cmm (157-399); Red Blood Count 5.69 10^6/uL (3.85-5.65); Red Cell Distribution Width 13.2 % (12.1-15.1); White Blood Count 11.75 10^3/uL (3.29-11.43)
[2023-12-21 20:42] LABS: Lactic Sepsis W/Reflex 0.9 mmol/L (0.5-2.2)
[2023-12-21 20:43] LABS: Alanine Aminotransferase 23 U/L (0-41); Albumin Level 4.7 g/dL (3.5-5.2); Alkaline Phosphatase 89 U/L (40-130); Anion Gap 21.5 (5-19); Aspartate Amino Transferase 21 U/L (0-40); Blood Urea Nitrogen 19 mg/dL (6-20); C Reactive Protein 90.1 mg/L (0.0-4.9); Calcium 9.6 mg/dL (8.5-10.5); Carbon Dioxide 20 mmol/L (22-29); Chloride 99 mmol/L (98-107); Creatinine Clr Calc Pharmacy 114.9276; Globulin 2.7 g/dL (1.3-4.6); Glomerular Filtration Rate 75.7 mL/min (90-130); Glucose 100 mg/dL (65-115); Lipase 17 U/L (13-60); Osmolality Calculated 286 mOsm/kg (285-295); Potassium 3.5 mmol/L (3.5-5.1); Sodium 137 mmol/L (136-145); Total Bilirubin 1.6 mg/dL (0.15-1.2); Total Protein 7.4 g/dL (6.6-8.7)
[2023-12-21] MEDS: iohexol 350 mg/mL 500 mL Btl (per mL) IV (20:43)
[2023-12-21] MEDS: ketorolac 30 mg/mL INJ 15 MG IVP (20:47)
[2023-12-21] MEDS: ondansetron 2 mg/ML SDV 2 mL 4 MG IVP (20:47)
[2023-12-21] MEDS: lactated ringers 1,000 ML 999 ML IV (20:47)
[2023-12-21 20:56] LABS: Charge for UA Resulting for Rev
[2023-12-21 21:00] LABS: Bilirubin Urine 2+ (Negative); Blood Urine Negative (Negative); Glucose Urine UA Negative (Normal); Ketones Urine 3+ (Negative); Leukocyte Esterase Urine Trace (Negative); Nitrate Urine Positive (Negative); Protein Urine 1+ (Negative); Urine Appearance Clear (CLEAR); pH Urine 5.5 (5-7)
[2023-12-21 21:05] LABS: Bacteria Urine None Seen /hpf; Hyaline Casts Urine 2.05 /lpf; Squamous Epithelial Cell Urine 0-5 /hpf (0-5); WBC Urine 0-5 /hpf (0-5)
[2023-12-21 21:11] LABS: Specific Gravity, Urine 1.037 (1.005-1.030); Urine Color Orange (Yellow)
[2023-12-21 21:31] VITALS: BP 95/56; PULSE 88; RESP 18; O2SAT 98
[2023-12-21 22:05] VITALS: BP 111/52; PULSE 89; RESP 16; O2SAT 96
[2023-12-21 22:07] VITALS: BP 111/52; PULSE 89; RESP 16; O2SAT 96
== END 2023-12-21 22:20 | disposition home or self-care (01) ==
PROVIDERS: Emergency Provider Nurse Practitioner Family
DX: K52.9 Noninfective gastroenteritis and colitis, unspecified (principal)
CPT/HCPCS: 74177; 80053; 81003; 81015; 83605; 83690; 85025; 86140; 96361; 96374; 96375; 99285; J1885; J2405; J7120

== ENCOUNTER 2024-01-07 21:39 | Emergency (ER) | payer MEDICAID, SELFPAY ==
[2024-01-07 22:14] VITALS: BP 156/82; PULSE 89; RESP 16; TEMP 36.6; O2SAT 99; BMI 37.8
[2024-01-07] MEDS: dexamethasone 10 mg/mL INJ IM (22:50)
[2024-01-07] MEDS: amoxicillin-clav 875-125 mg Tablet 1 TAB PO (22:50)
[2024-01-07] MEDS: lidocaine 2% viscous 15 mL UDC MUCOUS MEM (22:50)
[2024-01-07 22:55] VITALS: BP 148/79; PULSE 86; RESP 16; O2SAT 100
--- NOTE | 2024-01-07 23:24 | W.ED.DENTAL ---
HPI - Dental/Oral General: Chief complaint: Dental/Oral Stated complaint: mouth pain top left Time Seen by Provider: 01/07/24 22:39 Source: patient Mode of arrival: ambulatory Limitations: no limitations History of Present Illness: Patient is a 23-year-old male presents the emergency department complaining of left upper dental pain onset today. History of no dental care and multiple caries, states pain is slowly worsened throughout the day. Reports history of dental abscess and states this feels similar. He does note that he does not see a dentist at this time, though is set to see 1 soon. States he is felt nauseous today, from the pain. He denies any fevers, vomiting, or other symptoms at this time. MD Complaint: tooth pain Onset (ago): hour(s) Duration: constant Severity: severe Relieving factors: nothing Context: history of dental caries and poor dental care Associated symptoms: Denies ear or mastoid pain or fever(s) Related Data Home Medications Medication Instructions Recorded Confirmed meloxicam 15 mg tablet mg PO 06/21/23 10/10/23 albuterol sulfate 90 mcg/actuation inhalation 10/10/23 10/10/23 aerosol inhaler (Ventolin HFA) cetirizine 10 mg tablet mg PO 10/10/23 10/10/23 diclofenac sodium 75 mg mg PO 10/10/23 10/10/23 tablet,delayed release doxepin 10 mg capsule mg PO 10/10/23 10/10/23 epinephrine 0.3 mg/0.3 mL IM 10/10/23 10/10/23 injection, auto-injector topiramate 50 mg tablet mg PO 10/10/23 10/10/23 Previous Rx's Medication Instructions Recorded methocarbamol 750 mg tablet 750 mg PO Q8H #30 tabs 06/21/23 prednisone 20 mg tablet 60 mg (3 x 20 mg) PO DAILY 5 days 06/21/23 #15 tabs levetiracetam 1,000 mg tablet 1,000 mg PO BID #180 tabs 10/17/23 dicyclomine 10 mg capsule 10 mg PO QID PRN abdominal pain 12/21/23 #20 caps ondansetron 4 mg disintegrating 4 mg PO Q8H PRN nausea and 12/21/23 tablet vomiting #10 tabs amoxicillin 875 mg-potassium 1 tab PO BID 10 days #20 tabs 09/18/24 clavulanate 125 mg tablet lidocaine HCl 2 % mucosal solution 10 ml mucous membrane DAILY PRN 01/07/24 (Lidocaine Viscous) pain #100 mL Allergies Allergy/AdvReac Type Severity Reaction Status Date / Time banana Allergy ALGY-Anaphy Verified 12/21/23 19:58 laxis divalproex sodium Allergy Unknown Verified 12/21/23 19:58 [From Depakote] methylphenidate Allergy Unknown Verified 12/21/23 19:58 [From Ritalin] strawberry Allergy ALGY-Anaphy Verified 12/21/23 19:58 laxis blueberries Allergy ALGY-Anaphy Uncoded 12/21/23 19:58 laxis [place] Allergy ALGY-Anaphy Uncoded 12/21/23 19:58 laxis Review of Systems General: Reports: 10 or more systems reviewed and unremarkable except in HPI and below Const: Denies: fever(s), chills or fatigue Eyes: Denies: change in vision ENMT: Reports: dental pain and sinus pain; Denies: throat pain, ear or mastoid pain or nasal discharge Card: Denies: chest pain, palpitations, swelling of feet/ankles or lightheadedness Resp: Denies: dyspnea, productive cough or wheezing GI: Reports: nausea; Denies: abdominal pain, vomiting, diarrhea or constipation : Denies: flank pain, difficulty urinating, dysuria or urinary frequency Musc: Denies: neck pain, back pain or joint pain Skin/Breast: Denies: rash Neuro: Denies: headache(s), numbness in extremities or weakness in extremities PFSH ED PFSH: Medical History No pertinent family history Surgical History No pertinent past surgical history Physical Exam Const: COMMON NORMALS: no acute distress and no limitations GENERAL APPEARANCE: cooperative, comfortable and well developed ORIENTATION/CONSCIOUSNESS: Yes awake HENMT: COMMON NORMALS: normocephalic, atraumatic and hearing grossly normal bilaterally HEAD & SCALP: normocephalic and atraumatic TEETH & GINGIVA: Yes abnormal tooth and associated gingiva upper left tender, with associated gingival edema and enamel fractured, Yes caries and Yes poor dentition Eye: COMMON NORMALS: Equal, round and reactive pupils present, EOMs intact bilaterally and conjunctivae normal CONJUNCTIVA: Yes conjunctivae normal PUPIL: Yes Equal, round and reactive pupils present Neck/C-Spine: COMMON NORMALS: full ROM, supple and no JVD Resp: COMMON NORMALS: normal respiratory effort, No retractions, No use of accessory muscles and clear to auscultation bilaterally AUSCULTATION: clear to auscultation bilaterally Cardio: COMMON NORMALS: no JVD, regular rate, regular rhythm, No clicks present (Cardio), No murmurs present (Cardio) and No rub (Cardio) RATE: regular rate RHYTHM: regular rhythm Extremity: COMMON NORMALS: normal to inspection, full ROM and capillary refill normal Skin: COMMON NORMALS: no rashes or lesions noted GENERAL SKIN EXAM: no rashes or lesions noted Course Vital Signs: Vital signs: Vital Signs Temperature 97.9 F 01/07/24 22:14 Pulse Rate 86 01/07/24 22:55 Respiratory Rate 16 01/07/24 22:55 Blood Pressure 148/79 01/07/24 22:55 Pulse Oximetry 100 01/07/24 22:55 Oxygen Delivery Me thod Room Air 01/07/24 22:14 MDM - Dental/Oral Medical Decision Making Patient has evidence of both clinical dental abscess as well as tooth fracture. He is set to see a dentist soon. At this time we will treat for dental abscess with antibiotics and he will be provided topical lidocaine for the tooth fracture. He will return with any new or worsening and take Tylenol and ibuprofen at home. He is also given a shot of Decadron prior to discharge No radiology studies performed this visit Discharge Plan Discharge Patient Disposition: Home Clinical Impression: Dental abscess, Fracture of tooth Condition: Stable Prescriptions: New amoxicillin-pot clavulanate 875-125 mg tablet 1 tab PO BID 10 Days Qty: 20 0RF Lidocaine Viscous 2 % solution 10 ml mucous membrane DAILY PRN (Reason: pain) Qty: 100 0RF No Action epinephrine 0.3 mg/0.3 mL auto-injector IM topiramate 50 mg tablet PO doxepin 10 mg capsule PO cetirizine 10 mg tablet PO albuterol sulfate [Ventolin HFA] 90 mcg/actuation HFA aerosol inhaler inhalation diclofenac sodium 75 mg tablet,delayed release (DR/EC) PO levetiracetam 1,000 mg tablet 1,000 mg PO BID Qty: 180 0RF meloxicam 15 mg tablet PO prednisone 20 mg tablet 60 mg PO DAILY 5 Days Qty: 15 0RF methocarbamol 750 mg tablet 750 mg PO Q8H Qty: 30 0RF ondansetron 4 mg tablet,disintegrating 4 mg PO Q8H PRN (Reason: nausea and vomiting) Qty: 10 0RF dicyclomine 10 mg capsule 10 mg PO QID PRN (Reason: abdominal pain) Qty: 20 0RF Discharge Orders: Discharge ED (Routine); Ordered 01/07/24 Ordered By: Jean Marie Hernandez Referrals: Marguerite Blank PA [Primary Care Provider] - Discharge Diet: Usual diet Discharge Activity: Increase activity as tolerated Patient Instructions: Dental Abscess (ED), Chipped or Broken Tooth Activity Restrictions/Additional Instructions: Take antibiotics as prescribed. Topical lidocaine for added relief. Continue follow-up with dentist for longer-term management. Return with any new or worsening symptoms. Tylenol and ibuprofen for pain. Coding Level of Care Code ED Cardiovascular Disease Specialist for Shreya Horner
== END 2024-01-07 22:54 | disposition home or self-care (01) ==
PROVIDERS: Emergency Provider Physician Assistant; PCP Physician Assistant
DX: S02.5XXA Fracture of tooth (traumatic), initial encounter for closed fracture (principal); K04.7 Periapical abscess without sinus; X58.XXXA Exposure to other specified factors, initial encounter
CPT/HCPCS: 96372; 99283; J1100

== ENCOUNTER 2024-02-18 21:44 | Emergency (ER) | payer MEDICAID, SELFPAY ==
[2024-02-18 21:50] VITALS: BP 175/115; PULSE 86; RESP 26; O2SAT 100; BMI 34.5
[2024-02-18] MEDS: LORazepam 2 mg/mL INJ 1 mL IM (22:15)
--- NOTE | 2024-02-18 22:16 | PC.NURSE ---
Pt refusing to sit in bed, pt refusing all test and labs.
[2024-02-18 22:26] VITALS: PULSE 75; O2SAT 100
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
[2024-02-18 22:53] LABS: Basophils # 0.1 10^3/uL (0.0-0.1); Basophils % 0.5 %; Eosinophils # 0.2 10^3/uL (0.0-0.8); Eosinophils % 1.7 %; Hematocrit 47.3 % (37-53); Lymphocytes # 1.7 10^3/uL (0.8-4.8); Lymphocytes % 16.6 %; Mean Corpuscular HGB Conc 34.7 g/dL (30-55); Mean Corpuscular Hemoglobin 28.8 pg (27-33); Mean Corpuscular Volume 83.1 fl (82-101); Mean Platelet Volume 10.8 fL (7.4-10.4); Monocytes # 0.6 10^3/uL (0.2-0.9); Monocytes % 5.6 %; Neutrophils # 7.54 10^3/uL (1.8-7.7); Neutrophils % 75.3 %; Nucleated Red Blood Cells % 0 %; Platelet Count 263 10^3/cmm (157-399); Red Blood Count 5.69 10^6/uL (3.85-5.65); Red Cell Distribution Width 13.2 % (12.1-15.1); White Blood Count 10.01 10^3/uL (3.29-11.43)
[2024-02-18 23:08] LABS: Bilirubin Urine Negative (Negative); Blood Urine Negative (Negative); Glucose Urine UA Negative (Normal); Ketones Urine Negative (Negative); Leukocyte Esterase Urine Negative (Negative); Nitrate Urine Negative (Negative); Protein Urine Negative (Negative); Specific Gravity, Urine 1.007 (1.005-1.030); Urine Appearance Clear (CLEAR); Urine Color Yellow (Yellow)
[2024-02-18 23:16] LABS: Amphetamines Screen Urine Positive (Negative); Barbiturates Screen Urine Negative (Negative); Benzodiazepines Screen Urine Negative (Negative); Cocaine Screen Urine Negative (Negative); Opiate Screen Urine Negative (Negative); PCP Screen Urine Negative (Negative); THC Screen Urine Positive (Negative)
[2024-02-18 23:18] LABS: Bacteria Urine TRACE /hpf
[2024-02-18 23:21] LABS: Alanine Aminotransferase 40 U/L (0-41); Albumin Level 4.8 g/dL (3.5-5.2); Alkaline Phosphatase 107 U/L (40-130); Anion Gap 17.6 (5-19); Aspartate Amino Transferase 38 U/L (0-40); Blood Urea Nitrogen 7 mg/dL (6-20); Calcium 9.7 mg/dL (8.5-10.5); Carbon Dioxide 25 mmol/L (22-29); Chloride 101 mmol/L (98-107); Globulin 2.8 g/dL (1.3-4.6); Glomerular Filtration Rate 93.4 mL/min (90-130); Glucose 111 mg/dL (65-115); Osmolality Calculated 289 mOsm/kg (285-295); Potassium 3.6 mmol/L (3.5-5.1); Sodium 140 mmol/L (136-145); Thyroid Stimulating Hormone 0.93 uIU/mL (0.27-4.20); Total Bilirubin 1.1 mg/dL (0.15-1.2); Total Protein 7.6 g/dL (6.6-8.7)
[2024-02-18 23:25] LABS: Acetaminophen < 5.0 ug/mL (10-30); Alcohol Level < 10 mg/dL (0-10); Salicylate < 0.3 mg/dL (3-10)
[2024-02-18 23:26] VITALS: BP 131/86; PULSE 98; O2SAT 100
[2024-02-19] VITALS: BP 128/81; PULSE 98; O2SAT 99
[2024-02-19 00:29] VITALS: BP 115/73; PULSE 95; O2SAT 96
== END 2024-02-19 00:31 | disposition home or self-care (01) ==
PROVIDERS: Emergency Provider Emergency Medicine; PCP Physician Assistant
DX: R41.83 Borderline intellectual functioning (principal); F19.10 Other psychoactive substance abuse, uncomplicated
CPT/HCPCS: 36415; 80053; 80306; 80307; 81001; 84443; 85025; 96372; 99284; J2060

== ENCOUNTER 2024-02-26 20:26 | Inpatient (IN) | payer MEDICAID, SELFPAY ==
--- NOTE | 2024-02-26 20:28 | ECG_ITS ---
[facility] 2024[facility]26 Pat Name: Raad Covarrubiaswater Department: Room: Gender: Male Food Expeditor: : 2000 Requested By: Ethel Banks Order Number: [id number] Reis MD: Swetha John M.D. Measurements Intervals [place] Rate: 88 P: 48 MI: 184 QRS: 51 QRSD: 110 T: 53 QT: 356 QTc: 432 Interpretive Statements SINUS RHYTHM Compared to ECG 06/12/2022 21:26:16 No significant changes Electronically Signed On 02-26-2024 21:34:40 FACILITY TECHNICIAN by Swetha John M.D. [email or web address]
[2024-02-26 20:30] VITALS: BP 133/79; PULSE 116; RESP 20; TEMP 36.7; O2SAT 99; BMI 36.4
--- NOTE | 2024-02-26 20:38 | ED.C_ITS ---
HPI - Psych General: Chief Complaint: Psychiatric Symptoms Stated Complaint: SI Time Seen by Provider: 02/26/24 20:33 History of Present Illness: 23-year-old male who presents emergency room with suicidal ideation. He says he has not been taking his depression medications. He says he wants to quit suicide but does not have any specific plan at this time. Related Data Home Medications Medication Instructions Recorded Confirmed meloxicam 15 mg tablet mg PO 06/21/23 10/10/23 albuterol sulfate 90 mcg/actuation inhalation 10/10/23 10/10/23 aerosol inhaler (Ventolin HFA) cetirizine 10 mg tablet mg PO 10/10/23 10/10/23 diclofenac sodium 75 mg mg PO 10/10/23 10/10/23 tablet,delayed release doxepin 10 mg capsule mg PO 10/10/23 10/10/23 epinephrine 0.3 mg/0.3 mL IM 10/10/23 10/10/23 injection, auto-injector topiramate 50 mg tablet mg PO 10/10/23 10/10/23 Previous Rx's Medication Instructions Recorded methocarbamol 750 mg tablet 750 mg PO Q8H #30 tabs 06/21/23 prednisone 20 mg tablet 60 mg (3 x 20 mg) PO DAILY 5 days 06/21/23 #15 tabs levetiracetam 1,000 mg tablet 1,000 mg PO BID #180 tabs 10/17/23 dicyclomine 10 mg capsule 10 mg PO QID PRN abdominal pain 12/21/23 #20 caps ondansetron 4 mg disintegrating 4 mg PO Q8H PRN nausea and 12/21/23 tablet vomiting #10 tabs lidocaine HCl 2 % mucosal solution 10 ml mucous membrane DAILY PRN 01/07/24 (Lidocaine Viscous) pain #100 mL Allergies Allergy/AdvReac Type Severity Reaction Status Date / Time banana Allergy ALGY-Anaphy Verified 12/21/23 19:58 laxis divalproex sodium Allergy Unknown Verified 12/21/23 19:58 [From Depakote] methylphenidate Allergy Unknown Verified 12/21/23 19:58 [From Ritalin] strawberry Allergy ALGY-Anaphy Verified 12/21/23 19:58 laxis blueberries Allergy ALGY-Anaphy Uncoded 12/21/23 19:58 laxis [place] rolls Allergy ALGY-Anaphy Uncoded 12/21/23 19:58 laxis Review of Systems Narrative: Constitutional symptoms: Negative except as documented in HPI. Skin symptoms: Negative except as documented in HPI. Eye symptoms: Negative except as documented in HPI. ENMT symptoms: Negative except as documented in HPI. Respiratory symptoms: Negative except as documented in HPI. Cardiovascular symptoms: Negative except as documented in HPI. Gastrointestinal symptoms: Negative except as documented in HPI. Genitourinary symptoms: Negative except as documented in HPI. Musculoskeletal symptoms: Negative except as documented in HPI. Neurologic symptoms: Negative except as documented in HPI. Psychiatric symptoms: Negative except as documented in HPI. Endocrine symptoms: Negative except as documented in HPI. PFS ED PFSH: Medical History No pertinent family history Surgical History No pertinent past surgical history Physical Exam Narrative: EXAM NARRATIVE: General: Alert. no acute distress Skin: Warm, dry Head: Normocephalic, atraumatic. Neck: Supple, trachea midline. Eye: Extraocular movements are intact. Ears, nose, mouth and throat: Oral mucosa moist. Cardiovascular: Regular rate and rhythm, Normal peripheral perfusion. Respiratory: Lungs are clear to auscultation, respirations are non-labored, breath sounds are equal, Symmetrical chest wall expansion. Gastrointestinal: Soft, Nontender, Non distended, Normal bowel sounds. Musculoskeletal: Normal ROM, no deformity. Neurological: Alert and oriented to person, place, time, and situation, No focal neurological deficit observed. Psychiatric: Cooperative, depressed, expresses suicidal ideation. Course Vital Signs: Vital signs: Vital Signs Temperature 98.1 F 02/26/24 20:30 Pulse Rate 116 H 02/26/24 20:30 Respiratory Rate 20 H 02/26/24 20:30 Blood Pressure 133/79 02/26/24 20:30 Pulse Oximetry 99 02/26/24 20:30 Oxygen Delivery Me thod Room Air 02/26/24 20:30 MDM - Psych Medical Decision Making Differential diagnosis: Patient with reported depression and suicidal ideation. concerns for infection, alcohol intoxication, cardiac issues or other medical problems prior to psychiatric admission. Workup: labwork, ekg ordered to evaluate the pathologies and to clear the patient medically prior to psychiatric admission Lab work is pending at the time of admission. Patient will be transferred once his lab work is complete. Consultation: I spoke with Dr. Toscano who is on-call for psychiatry service and he agrees to admission. Assessment and plan: Suicidal ideation -Admission to neuropsychiatric unit for continued evaluation and treatment. - All lab work was reviewed and interpreted personally by myself, the ER physician - Evaluation and treatment of this problem were appropriate in the emergency setting No radiology studies performed this visit Discharge Plan Discharge Patient Disposition: Admitted As Inpatient Clinical Impression: Borderline intellectual functioning, Suicidal ideation Condition: Stable Coding Level of Care Code ED Obstetrics Gynecology Md for Shreya Horner
--- NOTE | 2024-02-26 21:07 | PC.NURSE ---
96 Hour Involuntary Hold Patient Rights have been discussed with the patient and all his questions were answered to his satisfaction. Patient acknowledges understanding of said Rights. [employer] Deshawn Hunt was present at bedside at the time of presentation of Rights.
[2024-02-26 21:08] LABS: Basophils % 0.4 %; Eosinophils # 0.3 10^3/uL (0.0-0.8); Eosinophils % 2.5 %; Hematocrit 44.7 % (37-53); Lymphocytes # 2.1 10^3/uL (0.8-4.8); Lymphocytes % 18.4 %; Mean Corpuscular HGB Conc 34.2 g/dL (30-55); Mean Corpuscular Hemoglobin 28.7 pg (27-33); Mean Corpuscular Volume 83.9 fl (82-101); Mean Platelet Volume 11.2 fL (7.4-10.4); Monocytes # 0.5 10^3/uL (0.2-0.9); Monocytes % 4.6 %; Neutrophils # 8.37 10^3/uL (1.8-7.7); Neutrophils % 73.8 %; Nucleated Red Blood Cells % 0 %; Platelet Count 231 10^3/cmm (157-399); Red Blood Count 5.33 10^6/uL (3.85-5.65); Red Cell Distribution Width 13.6 % (12.1-15.1); White Blood Count 11.32 10^3/uL (3.29-11.43)
[2024-02-26 21:15] LABS: Alanine Aminotransferase 45 U/L (0-41); Albumin Level 4.4 g/dL (3.5-5.2); Alkaline Phosphatase 94 U/L (40-130); Anion Gap 17.5 (5-19); Aspartate Amino Transferase 33 U/L (0-40); Blood Urea Nitrogen 6 mg/dL (6-20); Calcium 8.9 mg/dL (8.5-10.5); Carbon Dioxide 23 mmol/L (22-29); Chloride 102 mmol/L (98-107); Creatinine Clr Calc Pharmacy 142.9681; Globulin 2.1 g/dL (1.3-4.6); Glomerular Filtration Rate 93.4 mL/min (90-130); Glucose 130 mg/dL (65-115); Osmolality Calculated 287 mOsm/kg (285-295); Potassium 3.5 mmol/L (3.5-5.1); Salicylate 0.7 mg/dL (3-10); Sodium 139 mmol/L (136-145); Thyroid Stimulating Hormone 1.84 uIU/mL (0.27-4.20); Total Bilirubin 0.3 mg/dL (0.15-1.2); Total Protein 6.5 g/dL (6.6-8.7)
[2024-02-26 21:21] LABS: Acetaminophen < 5.0 ug/mL (10-30); Alcohol Level < 10 mg/dL (0-10)
[2024-02-26 22:28] LABS: Bilirubin Urine Negative (Negative); Blood Urine Negative (Negative); Glucose Urine UA Negative (Normal); Ketones Urine Negative (Negative); Leukocyte Esterase Urine Negative (Negative); Nitrate Urine Negative (Negative); Protein Urine Negative (Negative); Specific Gravity, Urine 1.012 (1.005-1.030); Urine Appearance Clear (CLEAR); Urine Color Yellow (Yellow); pH Urine 5.5 (5-7)
[2024-02-26 22:33] LABS: Bacteria Urine None Seen /hpf; Hyaline Casts Urine 0-4 /lpf; RBC Urine 0-2 /hpf (0-2); Squamous Epithelial Cell Urine 0-5 /hpf (0-5); WBC Urine 0-5 /hpf (0-5)
[2024-02-26 22:38] LABS: Amphetamines Screen Urine Negative (Negative); Barbiturates Screen Urine Negative (Negative); Benzodiazepines Screen Urine Negative (Negative); Cocaine Screen Urine Negative (Negative); Opiate Screen Urine Negative (Negative); PCP Screen Urine Negative (Negative); THC Screen Urine Positive (Negative)
[2024-02-26 23:12] VITALS: PULSE 79; RESP 14; O2SAT 94
[2024-02-26 23:55] VITALS: BP 122/85; PULSE 88; RESP 18; TEMP 36.6; O2SAT 98
[2024-02-27 06:00] VITALS: BP 145/91; PULSE 74; RESP 18; TEMP 36.7; O2SAT 98
--- NOTE | 2024-02-27 09:07 | PC.OT ---
OT EVALUATION ATTEMPTED. PATIENT IS SLEEPING SOUNDLY AND DOES NOT AWAKEN TO HIS NAME. HIS ROOMMATE STATES, HE SLEEPS HEAVY. YOU WILL HAVE TO SHAKE HIM TO GET HIM AWAKE
[2024-02-27 14:00] VITALS: BP 110/74; PULSE 64; RESP 18; TEMP 37.1; O2SAT 99
--- NOTE | 2024-02-27 14:52 | W.PM.NPUH&PS ---
Providers/Chief Complaint Admitting Physician: Bobby Toscano MD Primary Care Provider: Marguerite Blank Chief Complaint: SI HPI NPU History of Present Illness Raad Dasilva is a 23 year old male who presented to the emergency department with the following report: Chief Complaint: Psychiatric Symptoms Stated Complaint: SI Time Seen by Provider: 02/26/24 20:33 History of Present Illness: 23-year-old male who presents emergency room with suicidal ideation. He says he has not been taking his depression medications. He says he wants to quit suicide but does not have any specific plan at this time. He was admitted to the neuropsychiatric unit for definitive treatment of those issues. He is known to [facility] psychiatric services through an emergency room consult and some limited outpatient contacts. An excerpt of his 2022 emergency room contact is included below for historical context. He presents today reporting: Chief complaint The patient came to the hospital to get on the medication that they need to be on. History of the present complaint The patient, born on 2000, presented with a history of multiple admissions to psychiatric hospitals, estimating the number to be between 20 and 30 times. The last admission was reported to be a few months prior to the current consultation. The patient has been diagnosed with epilepsy and has been prescribed Keppra for seizure management. The patient reported a history of substance use, including tobacco, alcohol, marijuana, and methamphetamine. The patient started smoking and drinking alcohol at the age of 19. The patient recently started using marijuana for pain management but did not find it effective. The patient reported previous use of methamphetamine but has since stopped. The patient has been to rehab once but expressed a strong desire not to return. The patient reported experiencing symptoms of depression from a young age, describing feelings of sadness, helplessness, and hopelessness. The patient also reported sleep problems, low mood, and low energy. There were instances where the patient wished not to be alive and has attempted suicide twice, once by overdosing and another time by cutting the wrist. The patient also reported experiencing anxiety, often worrying about potential outcomes and being unable to stop these thoughts. There were instances where the patient felt paranoid, believing that people were out to get them or following them. The patient also reported occasional auditory and visual hallucinations. The patient denied any self-injurious behavior such as cutting or burning themselves. The patient reported having nightmares and flashbacks about traumatic events but did not elaborate on the nature of these events. The patient denied having obsessive-compulsive behaviors such as repeated hand washing or counting steps. The patient also denied engaging in behaviors such as stealing, setting fires, or being cruel to animals. The patient was previously identified as having Attention Deficit Hyperactivity Disorder (ADHD). The patient reported a history of foster care due to allegations of drug use by the mother. The patient was placed in multiple foster homes before eventually returning to their mother. The patient also reported being placed in a psychiatric torrez due to a disability. The patient reported witnessing a friend , which was a traumatic event for them. The patient reported previous treatment with Abilify but did not specify the reason for discontinuation. The patient expressed a preference to restart Abilify over starting a new medication, Invega. The patient denied any current suicidal or homicidal ideation but reported feeling slightly paranoid. The patient denied any current hallucinations. Mental health history The patient has a history of multiple admissions to psychiatric hospitals, with the exact number being uncertain. They have been prescribed Keppra for epileptic seizures. The patient has a history of depression, with symptoms including sadness, feelings of hopelessness, sleep problems, low mood, and low energy. They have attempted suicide twice, once by suffocating themselves and once by cutting their wrist. The patient also experiences anxiety, paranoia, and occasional auditory and visual hallucinations. They have been diagnosed with ADHD in the past. Social history The patient has a history of tobacco use, both smoking and vaping, which started at the age of 19. They also started consuming alcohol at the same age. They have recently started using cannabis for pain relief. They have previously used methamphetamine and opioids, but are not currently using these substances. They have been to rehab once. The patient has a history of driving under the influence and has been charged with paraphernalia, underage drinking, and possession. They have two children with two different women, but do not have contact with them. The patient has worked at a [employer] for a year and a half. They currently live with their mother, sister, sister's boyfriend, mother's boyfriend, and a friend. Per his 01/29/2023 [facility] psychiatric consultation: History of Present Illness Raad Dasilva is a 22 year old male who presented to the emergency department with the following report: Chief Complaint: Psychiatric Symptoms Stated Complaint: SI Time Seen by Provider: 01/29/23 06:52 Source: patient and EMS Mode of arrival: EMS Limitations: no limitations History of Present Illness: 22-year-old male is here with EMS he states that he called into work this morning him and his mom got in a fight over that and he told her using a slit his wrist. He states that he is not suicidal he said he is just saying that he stated he is depressed he feels like he needs to be on meds he denies having any suicidal plan at this time. Associated symptoms: Reports depression. A psychiatric consult was requested to assess whether inpatient services were needed versus discharge. 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 He reports that he is not currently taking psychiatric medication but has in the past. He endorses having inpatient psychiatric hospitalizations during his childhood mostly secondary to issues surrounding poor impulse control and anger. He reports that he does have seizures and takes Keppra for that. He reports that he woke up this morning feeling not that good and thought to himself he needed to get his medications adjusted. So he called EMS. He reports that there have been a dispute with his mom this morning that led him to being a bit irritable. Reports are that somebody and EMS heard him say that he was going to slit his wrist or something of that nature. He reported at first that he never said it. Then he reported he did not remember saying it discussed the fact that he will sometimes say things they do not mean or say things angry in the moment. He over and over stressed that he was not suicidal had no thoughts to hurt himself or anyone else nor would he. We had a long discussion about the importance of being in care even if you are not on medication so that when rough days, you have resources in place. We also discussed at length the crisis stabilization unit and its availability times etc. Discussing that if he had a moment like he had this morning he could have a place that he could call or go to immediately and he like that idea. He had a family member in the room who was supportive of the fact that he has these intermittent explosions that do not lead to anything just angry outbursts. We reviewed his additional history developmental, family etc. and there were no issues germane to this decision today. Meds NPU Home Medications Medication Instructions Recorded Confirmed Last Taken Type No Known Home Medications 02/27/24 02/27/24 Unknown History Allergies Allergy/AdvReac Type Severity Reaction Status Date / Time banana Allergy ALGY-Anaphy Verified 12/21/23 19:58 laxis divalproex sodium Allergy Unknown Verified 12/21/23 19:58 [From Depakote] methylphenidate Allergy Unknown Verified 12/21/23 19:58 [From Ritalin] strawberry Allergy ALGY-Anaphy Verified 12/21/23 19:58 laxis blueberries Allergy ALGY-Anaphy Uncoded 12/21/23 19:58 laxis chilean rolls Allergy ALGY-Anaphy Uncoded 12/21/23 19:58 laxis PFSH NPU PFSH: Medical History No pertinent family history Surgical History No pertinent past surgical history Mental Status Exam MSE Comments: This is an obese white male in hospital scrubs with adequate grooming and limited eye contact. No abnormal movements except for mild psychomotor retardation. Cooperative with exam in mild to moderate distress. Speech was slightly decreased rate and volume and childlike with mild dysarthria. Mood described as a little depressed, affect congruent. Thought process linear. Thought content: Patient denied suicidal or homicidal ideation, there were no delusions reported noted, he denied any auditory or visual hallucinations. The patient reports feeling a little paranoid, but denies any current suicidal or homicidal ideation. They also deny any current auditory or visual hallucinations. Attention and concentration were intact and memory appeared somewhat reliable but none were formally tested. He is alert and oriented x3. Insight and judgment limited impulse control limited versus impaired. Vitals/I&O/Wt Last Vital Signs Temp 98.8 F 02/27/24 14:00 Pulse 64 02/27/24 14:00 Resp 18 02/27/24 14:00 BP 110/74 02/27/24 14:00 Pulse Ox 99 02/27/24 14:00 O2 Del Method Room Air 02/26/24 23:57 Weight last 48 hrs Weight 112.037 kg Data NPU 02/26/24 20:40 02/26/24 20:40 A&P Assessment and plan (1) Fracture of distal phalanx of finger: Qualifiers: Encounter type: initial encounter Finger: middle finger Fracture alignment: nondisplaced Fracture type: closed Laterality: right Qualified Code(s): S62.662A - Nondisplaced fracture of distal phalanx of right middle finger, initial encounter for closed fracture (2) Contusion of right knee: Qualifiers: Encounter type: initial encounter Qualified Code(s): S80.01XA - Contusion of right knee, initial encounter (3) Gastroenteritis: (4) Depression: (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 The patient has a complex history of psychiatric disorders, including depression, anxiety, paranoia, and ADHD. They also have a history of substance abuse, including tobacco, alcohol, cannabis, methamphetamine, and opioids. The patient has been to rehabilitation once and has multiple admissions to psychiatric hospitals. They are currently not receiving pharmacotherapy but have expressed a desire to initiate pharmacotherapy. 1. Restart medication. 2. Continue every 15 minute checks for safety 3. Encourage individual, group and milieu therapy. 4. Encourage sober living treatment after discharge at the highest level care to which he is willing to commit. 5. Obtain collateral information. Involuntary Hold Information 96 Hour Hold: 96 Hour Involuntary Admission: Yes 96 Hour Hold Ending Date: 03/03/24 96 Hour Hold Ending Time: 20:47 Other Hold: Hold End Date: 03/03/24 Attestations NPU Medical Necessity Statement*: Inpatient hospitalization is medically necessary and the clinically appropriate intervention at this time we will monitor/initiate medications and make changes as indicated. He will be in the hospital for over 2 midnights. Likely length of stay 3 to 5 days. Coding Level of Care Code Acute Code for [facility] Fwd Diagnoses Fracture of distal phalanx of finger S62.662A Encounter type: initial encounter Finger: middle finger Fracture alignment: nondisplaced Fracture type: closed Laterality: right Contusion of right knee S80.01XA Encounter type: initial encounter Gastroenteritis K52.9 Depression F32.A Generalized epilepsy G40.309 Borderline intellectual functioning R41.83 Intermittent explosive disorder in adult F63.81 ADHD F90.9
[2024-02-27 22:00] VITALS: BP 116/71; PULSE 66; RESP 18; TEMP 36.7; O2SAT 98
[2024-02-28 06:00] VITALS: BP 125/75; PULSE 70; RESP 17; TEMP 36.7; O2SAT 97
--- NOTE | 2024-02-28 07:28 | P.NPUPN_ITS ---
Subjective NPU 2 Subjective: Patient presented today reporting that he is doing okay. He reports that he is tolerating his Keppra just fine. He was wondering about how discharge would work and we discussed the risks, benefits and alternatives of starting him on Invega and he understood and agreed to proceed as is documented in this note. He reports that when he leaves he will return to his mom's place. He endorsed being hopeful they can go sooner rather than later. He denied any other difficulties or any side effects of his medications. Mental Status Exam 2 MSE Comments: This is an obese white male in hospital scrubs with adequate grooming and limited eye contact. No abnormal movements except for mild psychomotor retardation. Cooperative with exam in mild to moderate distress. Speech was slightly decreased rate and volume and childlike with mild dysarthria. Mood described as a little depressed, affect congruent. Thought process linear. Thought content: Patient denied suicidal or homicidal ideation, there were no delusions reported noted, he denied any auditory or visual hallucinations. The patient reports feeling a little paranoid, but denies any current suicidal or homicidal ideation. They also deny any current auditory or visual hallucinations. Attention and concentration were intact and memory appeared somewhat reliable but none were formally tested. He is alert and oriented x3. Insight and judgment limited impulse control limited versus impaired. Vitals/I&O/Wt Last Vital Signs Temp 98.1 F 02/28/24 06:00 Pulse 70 02/28/24 06:00 Resp 17 02/28/24 06:00 BP 125/75 02/28/24 06:00 Pulse Ox 97 02/28/24 06:00 O2 Del Method Room Air 02/26/24 23:57 Weight last 48 hrs Weight 112.037 kg Data NPU 02/26/24 20:40 02/26/24 20:40 A&P Assessment and plan (1) Fracture of distal phalanx of finger: Qualifiers: Encounter type: initial encounter Finger: middle finger Fracture alignment: nondisplaced Fracture type: closed Laterality: right Qualified Code(s): S62.662A - Nondisplaced fracture of distal phalanx of right middle finger, initial encounter for closed fracture (2) Contusion of right knee: Qualifiers: Encounter type: initial encounter Qualified Code(s): S80.01XA - Contusion of right knee, initial encounter (3) Gastroenteritis: (4) Depression: (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 The patient has a complex history of psychiatric disorders, including depression, anxiety, paranoia, and ADHD. They also have a history of substance abuse, including tobacco, alcohol, cannabis, methamphetamine, and opioids. The patient has been to rehabilitation once and has multiple admissions to psychiatric hospitals. They are currently not receiving pharmacotherapy but have expressed a desire to initiate pharmacotherapy. 1. Restart medication including Keppra 250 mg p.o. twice daily and then will increase to 500 mg p.o. twice daily. Likely start Invega 3 mg daily. 2. Continue every 15 minute checks for safety 3. Encourage individual, group and milieu therapy. 4. Encourage sober living treatment after discharge at the highest level care to which he is willing to commit. 5. Obtain collateral information. Involuntary Hold Information 2 96 Hour Hold: 96 Hour Involuntary Admission: Yes 96 Hour Hold Ending Date: 03/03/24 96 Hour Hold Ending Time: 20:47 Other Hold: Hold End Date: 03/03/24 Attestations NPU 2 Medical Necessity Statement*: Inpatient hospitalization is medically necessary and the clinically appropriate intervention at this time we will monitor/initiate medications and make changes as indicated. Likely length of stay 3 to 5 days. Coding Level of Care Code Acute Code for [facility] Fwd Diagnoses Fracture of distal phalanx of finger S62.662A Encounter type: initial encounter Finger: middle finger Fracture alignment: nondisplaced Fracture type: closed Laterality: right Contusion of right knee S80.01XA Encounter type: initial encounter Gastroenteritis K52.9 Depression F32.A Generalized epilepsy G40.309 Borderline intellectual functioning R41.83 Intermittent explosive disorder in adult F63.81 ADHD F90.9
[2024-02-28] MEDS: levETIRAcetam 500 mg Tablet 250 MG PO ×2 (09:52→17:38)
[2024-02-28 13:58] VITALS: BP 137/88; PULSE 70; RESP 17; TEMP 37.1; O2SAT 100
[2024-02-28] MEDS: nicotine 4 mg lozenge MUCOUS MEM ×2 (14:30→17:53)
[2024-02-28] MEDS: levETIRAcetam 1,500 MG/100 ML PREMIX 400 MG IV (21:54)
[2024-02-28 22:00] VITALS: BP 115/68; PULSE 69; RESP 18; TEMP 36.7; O2SAT 93
--- NOTE | 2024-02-28 22:12 | W.PM.EVENTAC ---
Event Note Event Note: Rapid response was called for breakthrough seizure By the time I arrived patient was sitting at the bedside, he was awake and alert, no new focal deficit He is not complaining of pain He is not postictal I have given him 1500mg IV Keppra in the NPU I have requested CMP and magnesium level As per the nursing staff patient had seizure-like activity for more than 5 minutes they think it could be up to 8 minutes when it abort byed spontaneously I have requested Dr. Toscano to keep his p.o. Keppra at higher dose 1000 mg twice a day
[2024-02-28 22:44] LABS: Alanine Aminotransferase 46 U/L (0-41); Albumin Level 4.5 g/dL (3.5-5.2); Alkaline Phosphatase 95 U/L (40-130); Aspartate Amino Transferase 28 U/L (0-40); Blood Urea Nitrogen 12 mg/dL (6-20); Calcium 9.4 mg/dL (8.5-10.5); Carbon Dioxide 26 mmol/L (22-29); Chloride 103 mmol/L (98-107); Creatinine Clr Calc Pharmacy 158.8535; Globulin 2.7 g/dL (1.3-4.6); Glomerular Filtration Rate 105.5 mL/min (90-130); Glucose 94 mg/dL (65-115); Osmolality Calculated 294 mOsm/kg (285-295); Sodium 142 mmol/L (136-145); Total Bilirubin 0.3 mg/dL (0.15-1.2); Total Protein 7.2 g/dL (6.6-8.7)
--- NOTE | 2024-02-29 02:49 | PC.NURSE ---
AT APPROXIMATELY 2044 ART GLASS DESIGNER WAS ROUNDED AND PTS ROOM MATE ALERTED HER THAT PT WAS HAVING A SEIZURE. ART GLASS DESIGNER ALERTED RN'S AND DR. MCDANIELS WHO IMMEDIATELY RESPONDED. PT OBSERVED TO BE LAYING ON BACK ON BED WITH SEIZURE LIKE ACTIVITY, PT MOVED TO LEFT SIDE. VITALS SIGNS OBTAINED, 82 HR, 99% ON RA, UNABLE TO OBTAIN BLOOD PRESSURE. RAPID RESPONSE CALLED PER DE. MCDANIELS. TEAM ARRIVED. BP OBTAINED AND WAS 134/77 AND SPOZ 99%. CABLE MAKER STARTED #22 IV TO RIGHT AC TIMES ONE ATTEMPT. ARRIVED AND PLACED ORDERS FOR KEPPA 1500MG IN 100MLS. PT CONTINUED TO HAVE SEIZURE LIKE ACTIVITY LASTING APPROXIMATELY 8-9 MINUTES. PT REGAINED NORMAL NEUROLOGICAL FUNCTION AND WAS NOTED TO HAVE SOME CONFUSION STATING IT WAS 2024. CONFUSION RESOLVED AND HE WAS ABLE TO ANSWER QUESTIONS APPROPRIATELY. HANDY MAN, NPU ELECTRIC DEICER INSPECTOR WERE NOTIFIED. ORDERS FOR ONE TO ONE OBSERVATION FOR IV INFUSION, ONE TO ONE DISCONTINUED ONCE INFUSION INFUSED. KEPPRA 1500 MG INFUSED OVER 15 MINUTES AND COMPLETED AT 2250.IV TO RIGHT AC REMOVED. PT TOLERATED WELL. PT HAS HAD NO FURTHER ISSUES. CURRENTLY RESTING WITH EYES CLOSED, MONITORED EVERY 15 MINUTES.
[2024-02-29 06:00] VITALS: BP 113/63; PULSE 70; RESP 18; O2SAT 94
--- NOTE | 2024-02-29 07:06 | P.NPUPN_ITS ---
Subjective NPU 2 Subjective: Patient presented today reporting that the he is doing okay after last night. He had a seizure and endorsed doing okay since then. He was given 1500 mg IV Keppra loading dose and he reports that has been a little snowed. He denied any knowledge of having any seizures since that time last night. He reports tolerating the medication increase and we discussed the risks, benefits and alternatives of him starting the Invega and he understood and agreed to proceed as is documented in his note. Mental Status Exam 2 MSE Comments: This is an obese white male in hospital scrubs with adequate grooming and limited eye contact. No abnormal movements except for mild psychomotor retardation. Cooperative with exam in mild to moderate distress. Speech was slightly decreased rate and volume and childlike with mild dysarthria. Mood described as a little depressed, affect congruent. Thought process linear. Thought content: Patient denied suicidal or homicidal ideation, there were no delusions reported noted, he denied any auditory or visual hallucinations. The patient reports feeling a little paranoid, but denies any current suicidal or homicidal ideation. They also deny any current auditory or visual hallucinations. Attention and concentration were intact and memory appeared somewhat reliable but none were formally tested. He is alert and oriented x3. Insight and judgment limited impulse control limited versus impaired. Vitals/I&O/Wt Last Vital Signs Temp 98.1 F 02/28/24 22:00 Pulse 70 02/29/24 06:00 Resp 18 02/29/24 06:00 BP 113/63 02/29/24 06:00 Pulse Ox 94 02/29/24 06:00 O2 Del Method Room Air 02/26/24 23:57 02/28/24 02/29/24 02/29/24 22:59 06:59 14:59 Intake Total 580 / 580 Balance 580 / 580 Weight last 48 hrs Weight 112.582 kg Data NPU 02/26/24 20:40 02/28/24 21:09 A&P Assessment and plan (1) Fracture of distal phalanx of finger: Qualifiers: Encounter type: initial encounter Finger: middle finger Fracture alignment: nondisplaced Fracture type: closed Laterality: right Qualified Code(s): S62.662A - Nondisplaced fracture of distal phalanx of right middle finger, initial encounter for closed fracture (2) Contusion of right knee: Qualifiers: Encounter type: initial encounter Qualified Code(s): S80.01XA - Contusion of right knee, initial encounter (3) Gastroenteritis: (4) Depression: (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 The patient has a complex history of psychiatric disorders, including depression, anxiety, paranoia, and ADHD. They also have a history of substance abuse, including tobacco, alcohol, cannabis, methamphetamine, and opioids. The patient has been to rehabilitation once and has multiple admissions to psychiatric hospitals. They are currently not receiving pharmacotherapy but have expressed a desire to initiate pharmacotherapy. 1. Restart medication including Keppra 250 mg p.o. twice daily and then will increase to 500 mg p.o. twice daily. Keppra increased to 1000 mg p.o. daily start Invega 3 mg daily. 2. Continue every 15 minute checks for safety 3. Encourage individual, group and milieu therapy. 4. Encourage sober living treatment after discharge at the highest level care to which he is willing to commit. 5. Obtain collateral information. 6. Patient had a seizure around 8:30/ 8:40 PM last night. Likely lasted 8 or 9 minutes with no significant postictal confusion but consistent with seizure. Rapid response called and Dr. Gonzalez did respond and recommend the increase in the Keppra. He was also given 1500 mg IV Keppra after the event. Involuntary Hold Information 2 96 Hour Hold: 96 Hour Involuntary Admission: Yes 96 Hour Hold Ending Date: 03/03/24 96 Hour Hold Ending Time: 20:47 Other Hold: Hold End Date: 03/03/24 Attestations NPU 2 Medical Necessity Statement*: Inpatient hospitalization is medically necessary and the clinically appropriate intervention at this time we will monitor/initiate medications and make changes as indicated. Likely length of stay 2-4 days. Coding Level of Care Code Acute Code for [facility] Fwd Diagnoses Fracture of distal phalanx of finger S62.662A Encounter type: initial encounter Finger: middle finger Fracture alignment: nondisplaced Fracture type: closed Laterality: right Contusion of right knee S80.01XA Encounter type: initial encounter Gastroenteritis K52.9 Depression F32.A Generalized epilepsy G40.309 Borderline intellectual functioning R41.83 Intermittent explosive disorder in adult F63.81 ADHD F90.9
[2024-02-29] MEDS: nicotine 4 mg lozenge MUCOUS MEM ×4 (08:20→17:18)
[2024-02-29] MEDS: levETIRAcetam 500 mg Tablet 1000 MG PO ×2 (08:20→17:00)
[2024-02-29] MEDS: paliperidone ER 3 mg Tablet PO (08:20)
[2024-02-29 14:00] VITALS: BP 123/72; PULSE 90; RESP 17; TEMP 36.7; O2SAT 100
[2024-02-29] MEDS: benzocaine 20% 7 gm 1 APPLIC MUCOUS MEM (17:18)
[2024-02-29 21:06] VITALS: BP 128/80; PULSE 69; RESP 18; TEMP 36.6; O2SAT 99
[2024-03-01 06:00] VITALS: BP 124/69; PULSE 75; RESP 16; O2SAT 98
[2024-03-01] MEDS: levETIRAcetam 500 mg Tablet 1000 MG PO (08:07)
[2024-03-01] MEDS: paliperidone ER 3 mg Tablet PO (08:07)
[2024-03-01] MEDS: nicotine 4 mg lozenge MUCOUS MEM ×2 (08:07→12:19)
--- NOTE | 2024-03-01 12:55 | W.PM.NPUDCS ---
Diagnoses at Discharge Discharge Diagnosis (1) Fracture of distal phalanx of finger: Status: Inactive Qualifiers: Encounter type: initial encounter Finger: middle finger Fracture alignment: nondisplaced Fracture type: closed Laterality: right Qualified Code(s): S62.662A - Nondisplaced fracture of distal phalanx of right middle finger, initial encounter for closed fracture (2) Contusion of right knee: Status: Inactive Qualifiers: Encounter type: initial encounter Qualified Code(s): S80.01XA - Contusion of right knee, initial encounter (3) Gastroenteritis: Status: Inactive (4) Depression: Status: Inactive (5) Generalized epilepsy: Status: Acute (6) Borderline intellectual functioning: Status: Acute (7) Intermittent explosive disorder in adult: Status: Acute (8) ADHD: Status: Acute Reason for Visit Reason for Visit: SI Brief History: History of Present Illness Raad Dasilva is a 23 year old male who presented to the emergency department with the following report: Chief Complaint: Psychiatric Symptoms Stated Complaint: SI Time Seen by Provider: 02/26/24 20:33 History of Present Illness: 23-year-old male who presents emergency room with suicidal ideation. He says he has not been taking his depression medications. He says he wants to quit suicide but does not have any specific plan at this time. He was admitted to the neuropsychiatric unit for definitive treatment of those issues. He is known to [facility] psychiatric services through an emergency room consult and some limited outpatient contacts. An excerpt of his 2022 emergency room contact is included below for historical context. He presents today reporting: Chief complaint The patient came to the hospital to get on the medication that they need to be on. History of the present complaint The patient, born on 2000, presented with a history of multiple admissions to psychiatric hospitals, estimating the number to be between 20 and 30 times. The last admission was reported to be a few months prior to the current consultation. The patient has been diagnosed with epilepsy and has been prescribed Keppra for seizure management. The patient reported a history of substance use, including tobacco, alcohol, marijuana, and methamphetamine. The patient started smoking and drinking alcohol at the age of 19. The patient recently started using marijuana for pain management but did not find it effective. The patient reported previous use of methamphetamine but has since stopped. The patient has been to rehab once but expressed a strong desire not to return. The patient reported experiencing symptoms of depression from a young age, describing feelings of sadness, helplessness, and hopelessness. The patient also reported sleep problems, low mood, and low energy. There were instances where the patient wished not to be alive and has attempted suicide twice, once by overdosing and another time by cutting the wrist. The patient also reported experiencing anxiety, often worrying about potential outcomes and being unable to stop these thoughts. There were instances where the patient felt paranoid, believing that people were out to get them or following them. The patient also reported occasional auditory and visual hallucinations. The patient denied any self-injurious behavior such as cutting or burning themselves. The patient reported having nightmares and flashbacks about traumatic events but did not elaborate on the nature of these events. The patient denied having obsessive-compulsive behaviors such as repeated hand washing or counting steps. The patient also denied engaging in behaviors such as stealing, setting fires, or being cruel to animals. The patient was previously identified as having Attention Deficit Hyperactivity Disorder (ADHD). The patient reported a history of foster care due to allegations of drug use by the mother. The patient was placed in multiple foster homes before eventually returning to their mother. The patient also reported being placed in a psychiatric torrez due to a disability. The patient reported witnessing a friend , which was a traumatic event for them. The patient reported previous treatment with Abilify but did not specify the reason for discontinuation. The patient expressed a preference to restart Abilify over starting a new medication, Invega. The patient denied any current suicidal or homicidal ideation but reported feeling slightly paranoid. The patient denied any current hallucinations. Mental health history The patient has a history of multiple admissions to psychiatric hospitals, with the exact number being uncertain. They have been prescribed Keppra for epileptic seizures. The patient has a history of depression, with symptoms including sadness, feelings of hopelessness, sleep problems, low mood, and low energy. They have attempted suicide twice, once by suffocating themselves and once by cutting their wrist. The patient also experiences anxiety, paranoia, and occasional auditory and visual hallucinations. They have been diagnosed with ADHD in the past. Social history The patient has a history of tobacco use, both smoking and vaping, which started at the age of 19. They also started consuming alcohol at the same age. They have recently started using cannabis for pain relief. They have previously used methamphetamine and opioids, but are not currently using these substances. They have been to rehab once. The patient has a history of driving under the influence and has been charged with paraphernalia, underage drinking, and possession. They have two children with two different women, but do not have contact with them. The patient has worked at a [employer] for a year and a half. They currently live with their mother, sister, sister's boyfriend, mother's boyfriend, and a friend. Per his 01/29/2023 [facility] psychiatric consultation: History of Present Illness Raad Dasilva is a 22 year old male who presented to the emergency department with the following report: Chief Complaint: Psychiatric Symptoms Stated Complaint: SI Time Seen by Provider: 01/29/23 06:52 Source: patient and EMS Mode of arrival: EMS Limitations: no limitations History of Present Illness: 22-year-old male is here with EMS he states that he called into work this morning him and his mom got in a fight over that and he told her using a slit his wrist. He states that he is not suicidal he said he is just saying that he stated he is depressed he feels like he needs to be on meds he denies having any suicidal plan at this time. Associated symptoms: Reports depression. A psychiatric consult was requested to assess whether inpatient services were needed versus discharge. 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 He reports that he is not currently taking psychiatric medication but has in the past. He endorses having inpatient psychiatric hospitalizations during his childhood mostly secondary to issues surrounding poor impulse control and anger. He reports that he does have seizures and takes Keppra for that. He reports that he woke up this morning feeling not that good and thought to himself he needed to get his medications adjusted. So he called EMS. He reports that there have been a dispute with his mom this morning that led him to being a bit irritable. Reports are that somebody and EMS heard him say that he was going to slit his wrist or something of that nature. He reported at first that he never said it. Then he reported he did not remember saying it discussed the fact that he will sometimes say things they do not mean or say things angry in the moment. He over and over stressed that he was not suicidal had no thoughts to hurt himself or anyone else nor would he. We had a long discussion about the importance of being in care even if you are not on medication so that when rough days, you have resources in place. We also discussed at length the crisis stabilization unit and its availability times etc. Discussing that if he had a moment like he had this morning he could have a place that he could call or go to immediately and he like that idea. He had a family member in the room who was supportive of the fact that he has these intermittent explosions that do not lead to anything just angry outbursts. We reviewed his additional history developmental, family etc. and there were no issues germane to this decision today. Involuntary Hold Information 96 Hour Hold: 96 Hour Involuntary Admission: Yes 96 Hour Hold Ending Date: 03/03/24 96 Hour Hold Ending Time: 20:47 Other Hold: Hold End Date: 03/03/24 Mental Status Exam MSE Comments: This is an obese white male in hospital scrubs with adequate grooming and limited eye contact. No abnormal movements except for mild psychomotor retardation. Cooperative with exam in mild to moderate distress. Speech was slightly decreased rate and volume and childlike with mild dysarthria. Mood described as a little depressed, affect congruent. Thought process linear. Thought content: Patient denied suicidal or homicidal ideation, there were no delusions reported noted, he denied any auditory or visual hallucinations. The patient reports feeling a little paranoid, but denies any current suicidal or homicidal ideation. They also deny any current auditory or visual hallucinations. Attention and concentration were intact and memory appeared somewhat reliable but none were formally tested. He is alert and oriented x3. Insight and judgment limited impulse control limited versus impaired. Discharge Data Studies Completed and Pending: Laboratory Results WBC 11.32 10^3/uL (3. 29-11.43) 02/26/24 20:40 RBC 5.33 10^6/uL (3.8 5-5.65) 02/26/24 20:40 Hgb 15.30 g/dL (11.27 -16.99) 02/26/24 20:40 Hct 44.7 % (37-53) 02/26/24 20:40 MCV 83.9 fl (82-101) 02/26/24 20:40 MCH 28.7 pg (27-33) 02/26/24 20:40 MCHC 34.2 g/dL (30-55) 02/26/24 20:40 RDW 13.6 % (12.1-15.1 ) 02/26/24 20:40 Plt Count 231 10^3/cmm (157 -399) 02/26/24 20:40 MPV 11.2 fL (7.4-10.4 ) H 02/26/24 20:40 Neut % (Auto) 73.8 % 02/26/24 20:40 Lymph % (Auto) 18.4 % 02/26/24 20:40 Anson % (Auto) 4.6 % 02/26/24 20:40 Eos % (Auto) 2.5 % 02/26/24 20:40 Baso % (Auto) 0.4 % 02/26/24 20:40 Neut # (Auto) 8.37 10^3/uL (1.8 -7.7) H 02/26/24 20:40 Lymph # (Auto) 2.1 10^3/uL (0.8- 4.8) 02/26/24 20:40 Anson # (Auto) 0.5 10^3/uL (0.2- 0.9) 02/26/24 20:40 Eos # (Auto) 0.3 10^3/uL (0.0- 0.8) 02/26/24 20:40 Baso # (Auto) 0.0 10^3/uL (0.0- 0.1) 02/26/24 20:40 Nucleated RBC % (a uto) 0 % 02/26/24 20:40 Nucleated RBCs # 0.0 /100WBC 02/26/24 20:40 Sodium 142 mmol/L (136-1 45) 02/28/24 21:09 Potassium 4.0 mmol/L (3.5-5 .1) 02/28/24 21:09 Chloride 103 mmol/L (98-10 7) 02/28/24 21:09 Carbon Dioxide 26 mmol/L (22-29) 02/28/24 21:09 Anion Gap 17.0 (5-19) 02/28/24 21:09 BUN 12 mg/dL (6-20) 02/28/24 21:09 Creatinine 0.9 mg/dL (0.7-1. 2) 02/28/24 21:09 GFR Calculation 105.5 mL/min (90- 130) 02/28/24 21:09 Glucose 94 mg/dL (65-115) 02/28/24 21:09 Calculated Osmolal ity 294 mOsm/kg (285- 295) 02/28/24 21:09 Calcium 9.4 mg/dL (8.5-10 .5) 02/28/24 21:09 Magnesium 2.0 mg/dL (1.7-2. 3) 02/28/24 21:09 Total Bilirubin 0.3 mg/dL (0.15-1 .2) 02/28/24 21:09 AST 28 U/L (0-40) 02/28/24 21:09 ALT 46 U/L (0-41) H 02/28/24 21:09 Alkaline Phosphata se 95 U/L (40-130) 02/28/24 21:09 Total Protein 7.2 g/dL (6.6-8.7 ) 02/28/24 21:09 Albumin 4.5 g/dL (3.5-5.2 ) 02/28/24 21:09 Globulin 2.7 g/dL (1.3-4.6 ) 02/28/24 21:09 TSH 1.84 uIU/mL (0.27 -4.20) 02/26/24 20:40 Urine Color Yellow (Yellow) 02/26/24 22:10 Urine Appearance Clear (CLEAR) 02/26/24 22:10 Urine pH 5.5 (5-7) 02/26/24 22:10 Ur Specific Gravit y 1.012 (1.005-1.0 30) 02/26/24 22:10 Urine Protein Negative (Negati ve) 02/26/24 22:10 Urine Glucose (UA) Negative (Normal ) 02/26/24 22:10 Urine Ketones Negative (Negati ve) 02/26/24 22:10 Urine Blood Negative (Negati ve) 02/26/24 22:10 Urine Nitrate Negative (Negati ve) 02/26/24 22:10 Urine Bilirubin Negative (Negati ve) 02/26/24 22:10 Urine Urobilinogen 1.0 mg/dL (Negati ve) 02/26/24 22:10 Ur Leukocyte Yesenia ase Negative (Negati ve) 02/26/24 22:10 Urine RBC 0-2 /hpf (0-2) 02/26/24 22:10 Urine WBC 0-5 /hpf (0-5) 02/26/24 22:10 Ur Squamous Epith Cells 0-5 /hpf (0-5) 02/26/24 22:10 Amorphous Sediment Not Reportable 02/26/24 22:10 Urine Bacteria None seen /hpf (N ONE) 02/26/24 22:10 Hyaline Casts 0-4 /lpf H 02/26/24 22:10 Salicylates 0.7 mg/dL (3-10) L 02/26/24 20:40 Urine Opiates Scre en Negative ng/mL (N egative) 02/26/24 22:10 Acetaminophen < 5.0 ug/mL (10-3 0) L 02/26/24 20:40 Ur Barbiturates Sc reen Negative ng/mL (N egative) 02/26/24 22:10 Ur Phencyclidine S crn Negative ng/mL (N egative) 02/26/24 22:10 Ur Amphetamines Sc reen Negative ng/mL (N egative) 02/26/24 22:10 U Benzodiazepines Scrn Negative ng/mL (N egative) 02/26/24 22:10 Urine Cocaine Scre en Negative ng/mL (N egative) 02/26/24 22:10 U Marijuana (THC) Screen Positive ng/mL (N egative) H 02/26/24 22:10 Ethyl Alcohol < 10 mg/dL (0-10) 02/26/24 20:40 Vitals: Last Vital Signs Temp 97.9 F 02/29/24 21:06 Pulse 75 03/01/24 06:00 Resp 16 03/01/24 06:00 BP 124/69 03/01/24 06:00 Pulse Ox 98 03/01/24 06:00 O2 Del Method Room Air 02/26/24 23:57 Discharge Plan Discharge Patient Disposition: Home Condition: Stable Prescriptions: New levetiracetam 500 mg Tablet 1,000 mg PO BID 30 Days Qty: 120 1RF paliperidone 3 mg Tablet Extended Release 24 Hr 3 mg PO DAILY 30 Days Qty: 30 1RF No Action No Known Home Medications Discharge Orders: Discharge Order (Routine); Ordered 03/01/24 Ordered By: Bobby Toscano Referrals: [facility] [Outside] Anayeli Fong MD [Physician] - Marguerite Blank PA [Primary Care Provider] - Discharge Diet: Regular Discharge Activity: Resume usual activity Patient Instructions: Opioid Safety Discharge Attestations NPU Time Spent in Discharge Care*: less than 30 min Specific Discharge Activities: Specific discharge activities: educating patient, discussing with shoe parts caser/social workers/dc planners, documenting/other paperwork and evaluating patient/reviewing data Coding Level of Care Code Acute Code for Chg Fwd Diagnoses Fracture of distal phalanx of finger S62.662A Encounter type: initial encounter Finger: middle finger Fracture alignment: nondisplaced Fracture type: closed Laterality: right Contusion of right knee S80.01XA Encounter type: initial encounter Gastroenteritis K52.9 Depression F32.A Generalized epilepsy G40.309 Borderline intellectual functioning R41.83 Intermittent explosive disorder in adult F63.81 ADHD F90.9
[2024-03-01 13:21] VITALS: BP 124/69; PULSE 75; RESP 16; TEMP 36.6; O2SAT 98
[2024-03-01 13:42] VITALS: BP 109/70; PULSE 118; RESP 16; TEMP 36.9; O2SAT 99
== END 2024-03-01 15:00 | disposition home or self-care (01) | DRG 881 ==
LOC: ER 21:16 → NP 21:28
PROVIDERS: Internal Medicine; Admitting Provider Psychiatry & Neurology Psychiatry; Emergency Provider Emergency Medicine; PCP Physician Assistant; Visit Provider Psychiatry & Neurology Psychiatry
DX: F32.A Depression, unspecified (principal); R45.851 Suicidal ideations; R41.83 Borderline intellectual functioning; G40.909 Epilepsy, unspecified, not intractable, without status epilepticus; T43.016A Underdosing of tricyclic antidepressants, initial encounter; Z91.51 Personal history of suicidal behavior; F15.11 Other stimulant abuse, in remission; F11.11 Opioid abuse, in remission; F90.9 Attention-deficit hyperactivity disorder, unspecified type; F41.9 Anxiety disorder, unspecified; F60.0 Paranoid personality disorder; E66.9 Obesity, unspecified; Z68.36 Body mass index [BMI] 36.0-36.9, adult; F17.290 Nicotine dependence, other tobacco product, uncomplicated; F17.210 Nicotine dependence, cigarettes, uncomplicated
CPT/HCPCS: 36415; 80053; 80306; 80307; 81001; 83735; 84443; 85025; 93005; 97150; 97165; 99285; J1953

== ENCOUNTER 2024-03-03 22:38 | Emergency (ER) | payer MEDICAID, SELFPAY ==
[2024-03-03 22:40] VITALS: BP 152/107; PULSE 107; RESP 17; TEMP 37.1; O2SAT 98; BMI 29.5
--- NOTE | 2024-03-03 22:47 | W.ED.PSYCHS ---
HPI - Psych General: Chief Complaint: Psychiatric Symptoms Stated Complaint: SI Time Seen by Provider: 03/03/24 22:43 History of Present Illness: 23-year-old man with a history of borderline intellectual functioning who presents the emergency room by ambulance with anxiety. He says his mother and her boyfriend got to a fight and this has made him very anxious and now he does not have any place to go. He repeatedly denies homicidal or suicidal ideation. He says he does not want to go to the psych unit. Related Data Home Medications Medication Instructions Recorded Confirmed No Known Home Medications 02/27/24 02/27/24 Previous Rx's Medication Instructions Recorded levetiracetam 500 mg tablet 1,000 mg (2 x 500 mg) PO BID 30 03/01/24 days #120 tabs paliperidone 3 mg tablet,extended 3 mg PO DAILY 30 days #30 tabs 03/01/24 release 24 hr Allergies Allergy/AdvReac Type Severity Reaction Status Date / Time banana Allergy ALGY-Anaphy Verified 03/03/24 22:53 laxis divalproex sodium Allergy Unknown Verified 03/03/24 22:53 [From Depakote] methylphenidate Allergy Unknown Verified 03/03/24 22:53 [From Ritalin] strawberry Allergy ALGY-Anaphy Verified 03/03/24 22:53 laxis blueberries Allergy ALGY-Anaphy Uncoded 03/03/24 22:53 laxis tongan rolls Allergy ALGY-Anaphy Uncoded 03/03/24 22:53 laxis Review of Systems Narrative: Constitutional symptoms: Negative except as documented in HPI. Skin symptoms: Negative except as documented in HPI. Eye symptoms: Negative except as documented in HPI. ENMT symptoms: Negative except as documented in HPI. Respiratory symptoms: Negative except as documented in HPI. Cardiovascular symptoms: Negative except as documented in HPI. Gastrointestinal symptoms: Negative except as documented in HPI. Genitourinary symptoms: Negative except as documented in HPI. Musculoskeletal symptoms: Negative except as documented in HPI. Neurologic symptoms: Negative except as documented in HPI. Psychiatric symptoms: Negative except as documented in HPI. Endocrine symptoms: Negative except as documented in HPI. PFSH ED PFSH: Medical History No pertinent family history Surgical History No pertinent past surgical history Physical Exam Narrative: EXAM NARRATIVE: General: Alert, no acute distress. Skin: Warm, dry. Head: Normocephalic, atraumatic. Neck: Supple, trachea midline. Eye: Extraocular movements are intact. Ears, nose, mouth and throat: mucosa moist. Cardiovascular: Regular, Normal peripheral perfusion. Respiratory: Lungs are clear to auscultation, respirations are non-labored, breath sounds are equal, Symmetrical chest wall expansion. Gastrointestinal: Soft, Nontender, Non distended Musculoskeletal: Normal ROM, no deformity. Neurological: Alert and oriented, No focal neurological deficit observed. Psychiatric: Cooperative, appropriate mood & affect. Course Vital Signs: Vital signs: Vital Signs Temperature 98.7 F 03/03/24 22:40 Pulse Rate 107 H 03/03/24 22:40 Respiratory Rate 17 03/03/24 22:40 Blood Pressure 152/107 03/03/24 22:40 Pulse Oximetry 98 03/03/24 22:40 Oxygen Delivery Me thod Room Air 03/03/24 22:40 MDM - Psych Medical Decision Making Assessment and plan: Anxiety - Discharged home - Discussed plan with patient. Answered any questions. - Evaluation and treatment of this problem were appropriate in the emergency setting. No radiology studies performed this visit Discharge Plan Discharge Patient Disposition: Home Clinical Impression: Borderline intellectual functioning, Acute anxiety Condition: Stable Prescriptions: No Action No Known Home Medications levetiracetam 500 mg Tablet 1,000 mg PO BID 30 Days Qty: 120 1RF paliperidone 3 mg Tablet Extended Release 24 Hr 3 mg PO DAILY 30 Days Qty: 30 1RF Discharge Orders: Discharge ED (Routine); Ordered 03/03/24 Ordered By: Ethel Garner Referrals: Marguerite Blank PA [Primary Care Provider] - Discharge Diet: Usual diet Discharge Activity: Increase activity as tolerated Patient Instructions: Anxiety (ED), Opioid Safety, Pain Management Activity Restrictions/Additional Instructions: If you develop suicidal thoughts, or thoughts of harming yourself, or thoughts of harming others please seek medical attention immediately. Thank you for choosing [facility] for your healthcare needs today. Please realize this is an emergency room and that we are providing you with a medical screening exam and this may not be complete and all inclusive of all the testing and or work up that you may need to determine your ailment or severity of your illness. You have been screened and evaluated and felt safe for discharge. Health conditions do change or evolve sometimes and as such it is important that you follow up with your Primary Doctor to be re checked, 3-5 days is a general good time frame for follow up. You are always welcome to return to the ED for re assessment if your symptoms are worsening or you have new concerns Coding Level of Care Code ED Loop Drier Operator for Shreya Horner
--- NOTE | 2024-03-03 22:59 | PC.NURSE ---
pt came in for psychiatric symptoms. pt denied SI and HI. Pt was just stressed and did not want to be admitted. Pt was d/c. Pt was accepting of d/c.
== END 2024-03-03 23:02 | disposition home or self-care (01) ==
PROVIDERS: Emergency Provider Emergency Medicine; PCP Physician Assistant
DX: F41.9 Anxiety disorder, unspecified (principal); R41.83 Borderline intellectual functioning
CPT/HCPCS: 99283

== ENCOUNTER 2024-03-08 06:08 | Inpatient (IN) | payer MEDICAID, SELFPAY ==
[2024-03-08 06:08] VITALS: BP 134/94; PULSE 76; RESP 20; TEMP 36.8; O2SAT 99; BMI 28.0
--- NOTE | 2024-03-08 06:50 | W.ED.PSYCHS ---
HPI - Psych General: Chief Complaint: Psychiatric Symptoms Stated Complaint: SI Time Seen by Provider: 03/08/24 06:25 History of Present Illness: 23-year-old male presents to the emergency room via EMS with auditory and visual hallucinations. He tells me he was staying at a friend's home woke up and was hearing voices of 2 people he newly states they were telling him that he should kill himself and that they were going to kill him. He complains suicidal ideation but does not have a specific plan. He was recently hospitalized here for suicidal ideation he was admitted on 02/25 and discharged on 03/01. Related Data Previous Rx's Medication Instructions Recorded levetiracetam 500 mg tablet 1,000 mg (2 x 500 mg) PO BID 30 03/01/24 days #120 tabs paliperidone 3 mg tablet,extended 3 mg PO DAILY 30 days #30 tabs 03/01/24 release 24 hr Allergies Allergy/AdvReac Type Severity Reaction Status Date / Time banana Allergy ALGY-Anaphy Verified 03/03/24 22:53 laxis divalproex sodium Allergy Unknown Verified 03/03/24 22:53 [From Depakote] methylphenidate Allergy Unknown Verified 03/03/24 22:53 [From Ritalin] strawberry Allergy ALGY-Anaphy Verified 03/03/24 22:53 laxis blueberries Allergy ALGY-Anaphy Uncoded 03/03/24 22:53 laxis belizean rolls Allergy ALGY-Anaphy Uncoded 03/03/24 22:53 laxis Review of Systems Const: Denies: fever(s) or chills Card: Denies: chest pain Resp: Denies: dyspnea GI: Denies: abdominal pain : Denies: dysuria, urinary frequency or urinary urgency Musc: Denies: neck pain or back pain Skin/Breast: Denies: rash PFSH ED PFSH: Medical History No pertinent family history Surgical History No pertinent past surgical history Physical Exam Const: COMMON NORMALS: no acute distress GENERAL APPEARANCE: cooperative ORIENTATION/CONSCIOUSNESS: Yes awake HENMT: COMMON NORMALS: normocephalic, atraumatic and hearing grossly normal bilaterally HEAD & SCALP: normocephalic and atraumatic Resp: COMMON NORMALS: normal respiratory effort, No retractions, No use of accessory muscles and clear to auscultation bilaterally AUSCULTATION: clear to auscultation bilaterally Cardio: COMMON NORMALS: regular rate, regular rhythm and No murmurs present (Cardio) RATE: regular rate RHYTHM: regular rhythm GI: COMMON NORMALS: Soft to palpation and No hepatosplenomegaly present AUSCULTATION: Yes normoactive bowel sounds PALPATION: Yes Soft to palpation, No Tenderness to palpation present (GI), No Guarding due to palpation present (GI) and Yes No hepatosplenomegaly present Extremity: COMMON NORMALS: normal to inspection, capillary refill normal, no clubbing, cyanosis or edema, no calf tenderness and no pedal edema Skin: COMMON NORMALS: no rashes or lesions noted GENERAL SKIN EXAM: no rashes or lesions noted Course Vital Signs: Vital signs: Vital Signs Temperature 98.3 F 03/08/24 06:08 Pulse Rate 76 03/08/24 06:08 Respiratory Rate 20 H 03/08/24 06:08 Blood Pressure 134/94 03/08/24 06:08 Pulse Oximetry 99 03/08/24 06:08 Oxygen Delivery Me thod Room Air 03/08/24 06:08 [facility] - Psych Medical Decision Making Patient having acute psychosis with suicidal ideation. He has not formed a specific plan at this point he has not had any aggressive behaviors. He states he has not been taking his medications since his last discharge because he is currently homeless. Patient placed on a 96-hour hold discussed Dr. Stewart he accepts patient on admission did review Medical Records I reviewed the patient's medical records. Lab Data I reviewed the patient's lab results. 03/08/24 06:43 03/08/24 06:43 Laboratory Results WBC 9.77 10^3/uL (3.29-11.43) 03/08/24 06:43 RBC 5.47 10^6/uL (3.85-5.65) 03/08/24 06:43 Hgb 16.30 g/dL (11.27-16.99) 03/08/24 06:43 Hct 45.8 % (37-53) 03/08/24 06:43 MCV 83.7 fl (82-101) 03/08/24 06:43 MCH 29.8 pg (27-33) 03/08/24 06:43 MCHC 35.6 g/dL (30-55) 03/08/24 06:43 RDW 13.0 % (12.1-15.1) 03/08/24 06:43 Plt Count 272 10^3/cmm (157-399) 03/08/24 06:43 MPV 10.4 fL (7.4-10.4) 03/08/24 06:43 Neut % (Auto) 84.6 % 03/08/24 06:43 Lymph % (Auto) 9.9 % 03/08/24 06:43 [place] % (Auto) 4.1 % 03/08/24 06:43 Eos % (Auto) 0.7 % 03/08/24 06:43 Baso % (Auto) 0.4 % 03/08/24 06:43 Neut # (Auto) 8.26 10^3/uL (1.8-7.7) H 03/08/24 06:43 Lymph # (Auto) 1.0 10^3/uL (0.8-4.8) 03/08/24 06:43 [place] # (Auto) 0.4 10^3/uL (0.2-0.9) 03/08/24 06:43 Eos # (Auto) 0.1 10^3/uL (0.0-0.8) 03/08/24 06:43 Baso # (Auto) 0.0 10^3/uL (0.0-0.1) 03/08/24 06:43 Nucleated RBC % (auto) 0 % 03/08/24 06:43 Nucleated RBCs # 0.0 /100WBC 03/08/24 06:43 Sodium 137 mmol/L (136-145) 03/08/24 06:43 Potassium 3.4 mmol/L (3.5-5.1) L 03/08/24 06:43 Chloride 101 mmol/L (98-107) 03/08/24 06:43 Carbon Dioxide 23 mmol/L (22-29) 03/08/24 06:43 Anion Gap 16.4 (5-19) 03/08/24 06:43 BUN 11 mg/dL (6-20) 03/08/24 06:43 Creatinine 0.9 mg/dL (0.7-1.2) 03/08/24 06:43 GFR Calculation 105.5 mL/min (90-130) 03/08/24 06:43 Glucose 150 mg/dL (65-115) H 03/08/24 06:43 Calculated Osmolality 286 mOsm/kg (285-295) 03/08/24 06:43 Calcium 9.8 mg/dL (8.5-10.5) 03/08/24 06:43 Total Bilirubin 0.7 mg/dL (0.15-1.2) 03/08/24 06:43 AST 17 U/L (0-40) 03/08/24 06:43 ALT 24 U/L (0-41) 03/08/24 06:43 Alkaline Phosphatase 83 U/L (40-130) 03/08/24 06:43 Total Protein 7.1 g/dL (6.6-8.7) 03/08/24 06:43 Albumin 4.6 g/dL (3.5-5.2) 03/08/24 06:43 Globulin 2.5 g/dL (1.3-4.6) 03/08/24 06:43 Amorphous Sediment Not Reportable 03/08/24 06:30 Salicylates 0.4 mg/dL (3-10) L 03/08/24 06:43 Urine Opiates Screen Negative ng/mL (Negative) 03/08/24 06:30 Acetaminophen < 5.0 ug/mL (10-30) L 03/08/24 06:43 Ur Barbiturates Screen Negative ng/mL (Negative) 03/08/24 06:30 Ur Phencyclidine Scrn Negative ng/mL (Negative) 03/08/24 06:30 Ur Amphetamines Screen Positive ng/mL (Negative) H 03/08/24 06:30 U Benzodiazepines Scrn Negative ng/mL (Negative) 03/08/24 06:30 Urine Cocaine Screen Negative ng/mL (Negative) 03/08/24 06:30 U Marijuana (THC) Screen Positive ng/mL (Negative) H 03/08/24 06:30 No radiology studies performed this visit Discharge Plan Discharge Patient Disposition: Admitted As Inpatient Clinical Impression: Acute psychosis, Suicidal ideation Condition: Stable Prescriptions: No Action levetiracetam 500 mg Tablet 1,000 mg PO BID 30 Days Qty: 120 1RF paliperidone 3 mg Tablet Extended Release 24 Hr 3 mg PO DAILY 30 Days Qty: 30 1RF Referrals: Marguerite Blank PA [Primary Care Provider] - Coding Level of Care Code ED Human Resource Manager for Shreya Horner
[2024-03-08 06:55] LABS: Basophils % 0.4 %; Eosinophils # 0.1 10^3/uL (0.0-0.8); Eosinophils % 0.7 %; Hematocrit 45.8 % (37-53); Lymphocytes % 9.9 %; Mean Corpuscular HGB Conc 35.6 g/dL (30-55); Mean Corpuscular Hemoglobin 29.8 pg (27-33); Mean Corpuscular Volume 83.7 fl (82-101); Mean Platelet Volume 10.4 fL (7.4-10.4); Monocytes # 0.4 10^3/uL (0.2-0.9); Monocytes % 4.1 %; Neutrophils # 8.26 10^3/uL (1.8-7.7); Neutrophils % 84.6 %; Nucleated Red Blood Cells % 0 %; Platelet Count 272 10^3/cmm (157-399); Red Blood Count 5.47 10^6/uL (3.85-5.65); White Blood Count 9.77 10^3/uL (3.29-11.43)
[2024-03-08 07:09] LABS: Alanine Aminotransferase 24 U/L (0-41); Albumin Level 4.6 g/dL (3.5-5.2); Alkaline Phosphatase 83 U/L (40-130); Anion Gap 16.4 (5-19); Aspartate Amino Transferase 17 U/L (0-40); Blood Urea Nitrogen 11 mg/dL (6-20); Calcium 9.8 mg/dL (8.5-10.5); Carbon Dioxide 23 mmol/L (22-29); Chloride 101 mmol/L (98-107); Creatinine Clr Calc Pharmacy 140.0216; Globulin 2.5 g/dL (1.3-4.6); Glomerular Filtration Rate 105.5 mL/min (90-130); Glucose 150 mg/dL (65-115); Osmolality Calculated 286 mOsm/kg (285-295); Potassium 3.4 mmol/L (3.5-5.1); Salicylate 0.4 mg/dL (3-10); Sodium 137 mmol/L (136-145); Total Bilirubin 0.7 mg/dL (0.15-1.2); Total Protein 7.1 g/dL (6.6-8.7)
[2024-03-08 07:13] LABS: Amphetamines Screen Urine Positive (Negative); Barbiturates Screen Urine Negative (Negative); Benzodiazepines Screen Urine Negative (Negative); Cocaine Screen Urine Negative (Negative); Opiate Screen Urine Negative (Negative); PCP Screen Urine Negative (Negative); THC Screen Urine Positive (Negative)
[2024-03-08 07:13] LABS: Acetaminophen < 5.0 ug/mL (10-30)
[2024-03-08 08:10] VITALS: BP 136/94; PULSE 72; O2SAT 99
[2024-03-08 08:23] VITALS: BP 127/91; PULSE 74; RESP 17; TEMP 36.9; O2SAT 100
[2024-03-08 08:29] LABS: Bilirubin Urine Negative (Negative); Blood Urine Negative (Negative); Glucose Urine UA Negative (Normal); Ketones Urine Trace (Negative); Leukocyte Esterase Urine Negative (Negative); Nitrate Urine Negative (Negative); Protein Urine Trace (Negative); Specific Gravity, Urine 1.027 (1.005-1.030); Urine Appearance Clear (CLEAR); Urine Color Dark Yellow (Yellow); pH Urine 5.5 (5-7)
[2024-03-08 08:32] LABS: Bacteria Urine None Seen /hpf; Hyaline Casts Urine 1.21 /lpf; RBC Urine 0-2 /hpf (0-2); Squamous Epithelial Cell Urine 0-5 /hpf (0-5); WBC Urine 0-5 /hpf (0-5)
[2024-03-08 08:50] LABS: Add Urine Culture? No; Mucus Urine 1+ /hpf
--- NOTE | 2024-03-08 09:25 | PC.NURSE ---
96 hr rights reviewed with patient @[id number] with assistance of [facility] command and control officer Kyle. All education reviewed. No verbalized questions or concerns at this time. Patient copy left @bedside with patient. No verbalized needs to HS.
--- NOTE | 2024-03-08 09:59 | PC.NURSE ---
Patient brought into ED by EMS for increased auditory and visual hallucinations. Patient reports that he is hearing two separate voices, the voices of his mother's boyfriend and her ex-boyfriend telling him to kill himself. Patient is homeless. Patient was positive for amphetamines and THC, but reports that he is unsure of his last meth use. Patient's responses are delayed, appears to be hearing voices. Patient endorses suicidal ideation, with no specific plan. Patient has anxiety and a history of anxiety. Patient malik with anxiety by physical activity.
--- NOTE | 2024-03-08 10:30 | PC.OT ---
OT EVALUATION ATTEMPTED 3X THIS A.M.; PATIENT SLEEPING SOUNDLY AT EACH ATTEMPT.
[2024-03-08 14:00] VITALS: PULSE 58; RESP 15; O2SAT 98
--- NOTE | 2024-03-08 14:11 | PC.NURSE ---
PT WAS SLEEPING SOUNDLY, BLOOD PRESSURE UNABLE TO GET DUE TO HIM LAYING ON HIS ARMS. HEART RATE WAS 58, RESPIRATIONS 15 AND O2 LEVELS WERE 98. HIS NURSE WAS JESENIA AND CHARGE NURSE CJ WAS NOTIFIED.
--- NOTE | 2024-03-08 18:10 | PC.NURSE ---
Patient not waking up for medication. Patient's respirations are even and non-labored.
--- NOTE | 2024-03-08 18:21 | W.PM.NPUH&PS ---
Providers/Chief Complaint Admitting Physician: Kendall Wesley MD Primary Care Provider: Marguerite Blank Chief Complaint: SI HPI NPU History of Present Illness Raad Dasilva is a 23 year old male most recently discharged from the neuropsychiatric unit on 03/03/2024 who presented to the emergency department with complaints of auditory and visual hallucinations. He had reported that he was hearing voices telling him to kill himself. He had reported to nurses here that he had been homeless despite reporting that he had been staying at a friend's home. He had admitted to noncompliance with his current medication regimen and was admitted back to the neuropsychiatric unit for further evaluation and treatment. The patient was an extremely poor historian and refused to discuss any of the events that had led to his hospitalization here. Current Medications: Keppra 1000mg bid, Invega 3mg daily, Excerpt from NPU Discharge Summary on 03/03/24. Discharge Diagnosis (1) Fracture of distal phalanx of finger: Status: Inactive Qualifiers: Encounter type: initial encounter Finger: middle finger Fracture alignment: nondisplaced Fracture type: closed Laterality: right Qualified Code(s): S62.662A - Nondisplaced fracture of distal phalanx of right middle finger, initial encounter for closed fracture (2) Contusion of right knee: Status: Inactive Qualifiers: Encounter type: initial encounter Qualified Code(s): S80.01XA - Contusion of right knee, initial encounter (3) Gastroenteritis: Status: Inactive (4) Depression: Status: Inactive (5) Generalized epilepsy: Status: Acute (6) Borderline intellectual functioning: Status: Acute (7) Intermittent explosive disorder in adult: Status: Acute (8) ADHD: Status: Acute Reason for Visit SI Brief History: History of Present Illness Raad Dasilva is a 23 year old male who presented to the emergency department with the following report: Chief Complaint: Psychiatric Symptoms Stated Complaint: SI Time Seen by Provider: 02/26/24 20:33 History of Present Illness: 23-year-old male who presents emergency room with suicidal ideation. He says he has not been taking his depression medications. He says he wants to quit suicide but does not have any specific plan at this time. He was admitted to the neuropsychiatric unit for definitive treatment of those issues. He is known to [facility] psychiatric services through an emergency room consult and some limited outpatient contacts. An excerpt of his 2022 emergency room contact is included below for historical context. He presents today reporting: Chief complaint The patient came to the hospital to get on the medication that they need to be on. History of the present complaint The patient, born on 2000, presented with a history of multiple admissions to psychiatric hospitals, estimating the number to be between 20 and 30 times. The last admission was reported to be a few months prior to the current consultation. The patient has been diagnosed with epilepsy and has been prescribed Keppra for seizure management. The patient reported a history of substance use, including tobacco, alcohol, marijuana, and methamphetamine. The patient started smoking and drinking alcohol at the age of 19. The patient recently started using marijuana for pain management but did not find it effective. The patient reported previous use of methamphetamine but has since stopped. The patient has been to rehab once but expressed a strong desire not to return. The patient reported experiencing symptoms of depression from a young age, describing feelings of sadness, helplessness, and hopelessness. The patient also reported sleep problems, low mood, and low energy. There were instances where the patient wished not to be alive and has attempted suicide twice, once by overdosing and another time by cutting the wrist. The patient also reported experiencing anxiety, often worrying about potential outcomes and being unable to stop these thoughts. There were instances where the patient felt paranoid, believing that people were out to get them or following them. The patient also reported occasional auditory and visual hallucinations. The patient denied any self-injurious behavior such as cutting or burning themselves. The patient reported having nightmares and flashbacks about traumatic events but did not elaborate on the nature of these events. The patient denied having obsessive-compulsive behaviors such as repeated hand washing or counting steps. The patient also denied engaging in behaviors such as stealing, setting fires, or being cruel to animals. The patient was previously identified as having Attention Deficit Hyperactivity Disorder (ADHD). The patient reported a history of foster care due to allegations of drug use by the mother. The patient was placed in multiple foster homes before eventually returning to their mother. The patient also reported being placed in a psychiatric torrez due to a disability. The patient reported witnessing a friend , which was a traumatic event for them. The patient reported previous treatment with Abilify but did not specify the reason for discontinuation. The patient expressed a preference to restart Abilify over starting a new medication, Invega. The patient denied any current suicidal or homicidal ideation but reported feeling slightly paranoid. The patient denied any current hallucinations. Mental health history The patient has a history of multiple admissions to psychiatric hospitals, with the exact number being uncertain. They have been prescribed Keppra for epileptic seizures. The patient has a history of depression, with symptoms including sadness, feelings of hopelessness, sleep problems, low mood, and low energy. They have attempted suicide twice, once by suffocating themselves and once by cutting their wrist. The patient also experiences anxiety, paranoia, and occasional auditory and visual hallucinations. They have been diagnosed with ADHD in the past. Social history The patient has a history of tobacco use, both smoking and vaping, which started at the age of 19. They also started consuming alcohol at the same age. They have recently started using cannabis for pain relief. They have previously used methamphetamine and opioids, but are not currently using these substances. They have been to rehab once. The patient has a history of driving under the influence and has been charged with paraphernalia, underage drinking, and possession. They have two children with two different women, but do not have contact with them. The patient has worked at a [employer] for a year and a half. They currently live with their mother, sister, sister's boyfriend, mother's boyfriend, and a friend. Per his 01/29/2023 [facility] psychiatric consultation: History of Present Illness Raad Dasilva is a 22 year old male who presented to the emergency department with the following report: Chief Complaint: Psychiatric Symptoms Stated Complaint: SI Time Seen by Provider: 01/29/23 06:52 Source: patient and EMS Mode of arrival: EMS Limitations: no limitations History of Present Illness: 22-year-old male is here with EMS he states that he called into work this morning him and his mom got in a fight over that and he told her using a slit his wrist. He states that he is not suicidal he said he is just saying that he stated he is depressed he feels like he needs to be on meds he denies having any suicidal plan at this time. Associated symptoms: Reports depression. A psychiatric consult was requested to assess whether inpatient services were needed versus discharge. 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 He reports that he is not currently taking psychiatric medication but has in the past. He endorses having inpatient psychiatric hospitalizations during his childhood mostly secondary to issues surrounding poor impulse control and anger. He reports that he does have seizures and takes Keppra for that. He reports that he woke up this morning feeling not that good and thought to himself he needed to get his medications adjusted. So he called EMS. He reports that there have been a dispute with his mom this morning that led him to being a bit irritable. Reports are that somebody and EMS heard him say that he was going to slit his wrist or something of that nature. He reported at first that he never said it. Then he reported he did not remember saying it discussed the fact that he will sometimes say things they do not mean or say things angry in the moment. He over and over stressed that he was not suicidal had no thoughts to hurt himself or anyone else nor would he. We had a long discussion about the importance of being in care even if you are not on medication so that when rough days, you have resources in place. We also discussed at length the crisis stabilization unit and its availability times etc. Discussing that if he had a moment like he had this morning he could have a place that he could call or go to immediately and he like that idea. He had a family member in the room who was supportive of the fact that he has these intermittent explosions that do not lead to anything just angry outbursts. We reviewed his additional history developmental, family etc. and there were no issues germane to this decision today. Meds NPU Home Medications Medication Instructions Recorded Confirmed Last Taken Type levetiracetam 500 mg tablet 1,000 mg (2 x 500 mg) PO BID 30 03/01/24 03/08/24 Unknown Rx days #120 tabs paliperidone 3 mg tablet,extended 3 mg PO DAILY 30 days #30 tabs 03/01/24 03/08/24 Unknown Rx release 24 hr epinephrine 0.3 mg/0.3 mL 0.3 mg IM . DIRECTED PRN 03/08/24 03/08/24 Unknown History injection, auto-injector Allergic Reaction Allergies Allergy/AdvReac Type Severity Reaction Status Date / Time banana Allergy ALGY-Anaphy Verified 03/03/24 22:53 laxis divalproex sodium Allergy Unknown Verified 03/03/24 22:53 [From Depakote] methylphenidate Allergy Unknown Verified 03/03/24 22:53 [From Ritalin] strawberry Allergy ALGY-Anaphy Verified 03/03/24 22:53 laxis blueberries Allergy ALGY-Anaphy Uncoded 03/03/24 22:53 laxis burkinan rolls Allergy ALGY-Anaphy Uncoded 03/03/24 22:53 laxis PFS NPU PFSH: Medical History No pertinent family history Surgical History No pertinent past surgical history Mental Status Exam MSE Comments: This is an obese white male in hospital scrubs with poor grooming and no eye contact lying face down. No abnormal movements except for moderate to severe psychomotor retardation. He was noncooperative with exam in mild to moderate distress. Speech was not present. Mood not endorsed. His affect was subdued. Thought process was difficult to assess as he was essentially nonverbal. Thought content: Patient did not endorse homicidal or suicidal ideation. There were no delusions reported noted, he denied any auditory or visual hallucinations. Attention and concentration were intact and memory appeared somewhat reliable but none were formally tested. He is alert and oriented x3. Insight, judgment, and impulse control is impaired. Vitals/I&O/Wt Last Vital Signs Temp 98.4 F 03/08/24 08:23 Pulse 58 L 03/08/24 14:00 Resp 15 03/08/24 14:00 BP 127/91 03/08/24 08:23 Pulse Ox 98 03/08/24 14:00 O2 Del Method Room Air 03/08/24 08:24 Weight last 48 hrs Weight 86.183 kg Data NPU 03/08/24 06:43 03/08/24 06:43 A&P Assessment and plan (1) Intermittent explosive disorder in adult: (2) Borderline intellectual functioning: (3) Fracture of distal phalanx of finger: Qualifiers: Encounter type: initial encounter Finger: middle finger Fracture alignment: nondisplaced Fracture type: closed Laterality: right Qualified Code(s): S62.662A - Nondisplaced fracture of distal phalanx of right middle finger, initial encounter for closed fracture (4) Depression: (5) Generalized epilepsy: (6) ADHD: Plan This is a 23-year-old white male known from past encounter with a long history of mental health issues during his childhood with clear issues of impulsivity and intellectual disability recently discharged 5 days ago. The patient has a complex history of psychiatric disorders, including depression, anxiety, paranoia, and ADHD. They also have a history of substance abuse, including tobacco, alcohol, cannabis, methamphetamine, and opioids. The patient has been to rehabilitation once and has multiple admissions to psychiatric hospitals. 1. Restart keppra and invega as prescribed. 2. Continue every 15 minute checks for safety 3. Encourage individual, group and milieu therapy. 4. Encourage sober living treatment after discharge at the highest level care to which he is willing to commit. 5. Obtain collateral information. Involuntary Hold Information 96 Hour Hold: 96 Hour Involuntary Admission: Yes Other Hold: Hold End Date: 03/12/24 Attestations NPU Medical Necessity Statement*: Inpatient hospitalization is medically necessary and the clinically appropriate intervention at this time we will monitor/initiate medications and make changes as indicated. He will be in the hospital for over 2 midnights. Likely length of stay 5-7 days. Coding Level of Care Code Acute Code for Chg Fwd Diagnoses Intermittent explosive disorder in adult F63.81 Borderline intellectual functioning R41.83 Fracture of distal phalanx of finger S62.662A Encounter type: initial encounter Finger: middle finger Fracture alignment: nondisplaced Fracture type: closed Laterality: right Depression F32.A Generalized epilepsy G40.309 ADHD F90.9
[2024-03-08 20:00] VITALS: PULSE 54; RESP 16; O2SAT 97
[2024-03-09 06:00] VITALS: BP 112/64; PULSE 76; RESP 18; TEMP 36.7; O2SAT 99
[2024-03-09] MEDS: levETIRAcetam 500 mg Tablet 1000 MG PO ×2 (09:59→18:02)
[2024-03-09] MEDS: paliperidone ER 6 mg Tablet PO (09:59)
[2024-03-09 14:00] VITALS: BP 100/63; PULSE 79; RESP 16; TEMP 36.6; O2SAT 96
[2024-03-09] MEDS: nicotine 4 mg lozenge MUCOUS MEM (15:25)
--- NOTE | 2024-03-09 16:06 | P.NPUPN_ITS ---
Subjective NPU 2 Subjective: 23-year-old male recently discharged 1 w [place] ago from the neuropsychiatric unit admitted after reporting problems with depression and having increased agitation and confusion. The patient had been positive for amphetamines and denied this today on interview. He had reported that he could not remember whether he had been taking his medications as prescribed by Dr. Toscano on discharge. He stated that he had been staying with his mother and his aunt and stated that he had a place to stay when he left here. Patient had been more alert and appeared less isolative today on the milieu. He had reported having problems with staying on task and reported difficulties with concentration. He has a history of a seizure disorder and reported that he was uncertain as to when he had last had his last grand mal seizure. Mental Status Exam 2 MSE Comments: This is an obese white male in hospital scrubs with adequate grooming and limited eye contact. No abnormal movements except for mild psychomotor retardation. Cooperative with exam in mild to moderate distress. Speech was slightly decreased rate and volume and childlike with mild dysarthria. Mood described as okay. His affect was restricted in range and mood incongruent. Thought process was linear. Thought content: Patient denied suicidal or homicidal ideation, there were no delusions reported noted, he denied any auditory or visual hallucinations. There was no clear paranoia noted and no evidence of delusional thinking. He denies any current suicidal or homicidal ideation. They also deny any current auditory or visual hallucinations. Attention and concentration were intact and memory appeared somewhat reliable but none were formally tested. He is alert and oriented x3. Insight and judgment limited impulse control limited versus impaired. Vitals/I&O/Wt Last Vital Signs Temp 98 F 03/09/24 14:00 Pulse 79 03/09/24 14:00 Resp 16 03/09/24 14:00 BP 100/63 03/09/24 14:00 Pulse Ox 96 03/09/24 14:00 O2 Del Method Room Air 03/09/24 14:00 Weight last 48 hrs Weight 86.183 kg Data NPU 03/08/24 06:43 03/08/24 06:43 A&P Assessment and plan (1) Intermittent explosive disorder in adult: (2) Borderline intellectual functioning: (3) Fracture of distal phalanx of finger: Qualifiers: Encounter type: initial encounter Finger: middle finger Fracture alignment: nondisplaced Fracture type: closed Laterality: right Qualified Code(s): S62.662A - Nondisplaced fracture of distal phalanx of right middle finger, initial encounter for closed fracture (4) Depression: (5) Generalized epilepsy: (6) ADHD: Plan This is a 23-year-old white male known from past encounter with a long history of mental health issues during his childhood with clear issues of impulsivity and intellectual disability recently discharged 5 days ago. The patient has a complex history of psychiatric disorders, including depression, anxiety, paranoia, and ADHD. They also have a history of substance abuse, including tobacco, alcohol, cannabis, methamphetamine, and opioids. The patient has been to rehabilitation once and has multiple admissions to psychiatric hospitals. 1. Continue keppra and invega 6mg daily as prescribed. Consider IM invega with history of noncompliance to medications appreciated. 2. Continue every 15 minute checks for safety 3. Encourage individual, group and milieu therapy. 4. Encourage sober living treatment after discharge at the highest level care to which he is willing to commit. 5. Obtain collateral information. Involuntary Hold Information 2 96 Hour Hold: 96 Hour Involuntary Admission: Yes Other Hold: Hold End Date: 03/12/24 Attestations NPU 2 Medical Necessity Statement*: Inpatient hospitalization is medically necessary and the clinically appropriate intervention at this time we will monitor/initiate medications and make changes as indicated. Likely length of stay 5-7 days. Coding Level of Care Code Acute Code for Chg Fwd Diagnoses Intermittent explosive disorder in adult F63.81 Borderline intellectual functioning R41.83 Fracture of distal phalanx of finger S62.662A Encounter type: initial encounter Finger: middle finger Fracture alignment: nondisplaced Fracture type: closed Laterality: right Depression F32.A Generalized epilepsy G40.309 ADHD F90.9
--- NOTE | 2024-03-09 18:44 | PC.NURSE ---
Pt has requested that he be placed in [facility], snf sitting. passed this info along to Daniel.
[2024-03-09] MEDS: OLANZapine 5 mg ODT PO (20:06)
[2024-03-09] MEDS: trazodone 50 mg Tablet PO (20:07)
[2024-03-09 20:26] VITALS: BP 102/75; PULSE 120; RESP 19; TEMP 36.5
[2024-03-10 06:00] VITALS: RESP 16
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
[2024-03-10] MEDS: levETIRAcetam 500 mg Tablet 1000 MG PO ×2 (08:10→17:25)
[2024-03-10] MEDS: paliperidone ER 6 mg Tablet PO (08:10)
[2024-03-10 14:00] VITALS: BP 88/58; PULSE 55; RESP 16; TEMP 36.5; O2SAT 99
--- NOTE | 2024-03-10 16:03 | P.NPUPN_ITS ---
Subjective NPU 2 Subjective: 23-year-old male recently discharged 1 w [place] ago from the neuropsychiatric unit admitted after reporting problems with depression and having increased agitation and confusion. Patient continued to minimize the significance of his use of methamphetamine. He continued to appear tired and lethargic on the unit. He had continued to struggle with completion of activities of daily living. He had reported that he wished to go to a nursing home. The patient had reported that he is currently homeless. He had reported some difficulties falling asleep. Staff notes patient had continued to appear tired. He had remained compliant with his medication regimen. Mental Status Exam 2 MSE Comments: This is an obese white male in hospital scrubs with adequate grooming and limited eye contact. No abnormal movements except for mild psychomotor retardation. He was minimally cooperative with exam in mild to moderate distress. Speech was slightly decreased rate and volume and childlike with mild dysarthria. Mood described as okay. His affect was restricted in range and mood incongruent. Thought process was linear. Thought content: Patient denied suicidal or homicidal ideation, there were no delusions reported noted, he denied any auditory or visual hallucinations. There was no clear paranoia noted and no evidence of delusional thinking. He denies any current suicidal or homicidal ideation. They also deny any current auditory or visual hallucinations. Attention and concentration were intact and memory appeared somewhat reliable but none were formally tested. He is alert and oriented x3. Insight and judgment are limited. His impulse control is poor. Vitals/I&O/Wt Last Vital Signs Temp 97.7 F 03/10/24 14:00 Pulse 55 L 03/10/24 14:00 Resp 16 03/10/24 14:00 BP 88/58 03/10/24 14:00 Pulse Ox 99 03/10/24 14:00 O2 Del Method Room Air 03/10/24 14:00 Data NPU 03/08/24 06:43 03/08/24 06:43 A&P Assessment and plan (1) Intermittent explosive disorder in adult: (2) Borderline intellectual functioning: (3) Fracture of distal phalanx of finger: Qualifiers: Encounter type: initial encounter Finger: middle finger Fracture alignment: nondisplaced Fracture type: closed Laterality: right Qualified Code(s): S62.662A - Nondisplaced fracture of distal phalanx of right middle finger, initial encounter for closed fracture (4) Depression: (5) Generalized epilepsy: (6) ADHD: Plan This is a 23-year-old white male known from past encounter with a long history of mental health issues during his childhood with clear issues of impulsivity and intellectual disability recently discharged 5 days ago. The patient has a complex history of psychiatric disorders, including depression, anxiety, paranoia, and ADHD. They also have a history of substance abuse, including tobacco, alcohol, cannabis, methamphetamine, and opioids. The patient has been to rehabilitation once and has multiple admissions to psychiatric hospitals. 1. Continue keppra and invega 6mg daily as prescribed. Consider IM invega with history of noncompliance to medications appreciated. 2. Continue every 15 minute checks for safety 3. Encourage individual, group and milieu therapy. 4. Encourage sober living treatment after discharge at the highest level care to which he is willing to commit. 5. Obtain collateral information. Involuntary Hold Information 2 96 Hour Hold: 96 Hour Involuntary Admission: Yes Other Hold: Hold End Date: 03/12/24 Attestations NPU 2 Medical Necessity Statement*: Inpatient hospitalization is medically necessary and the clinically appropriate intervention at this time we will monitor/initiate medications and make changes as indicated. Likely length of stay 5-7 days. Coding Level of Care Code Acute Code for Chg Fwd Diagnoses Intermittent explosive disorder in adult F63.81 Borderline intellectual functioning R41.83 Fracture of distal phalanx of finger S62.662A Encounter type: initial encounter Finger: middle finger Fracture alignment: nondisplaced Fracture type: closed Laterality: right Depression F32.A Generalized epilepsy G40.309 ADHD F90.9
[2024-03-10] MEDS: acetaminophen 325 mg Tablet 650 MG PO (19:27)
[2024-03-10] MEDS: trazodone 50 mg Tablet PO (19:27)
[2024-03-10 19:46] VITALS: BP 90/66; PULSE 123; RESP 17; TEMP 36.7; O2SAT 96
[2024-03-11 06:00] VITALS: BP 102/65; PULSE 55; RESP 12; TEMP 36.2; O2SAT 97
[2024-03-11] MEDS: paliperidone ER 6 mg Tablet PO (08:47)
[2024-03-11] MEDS: levETIRAcetam 500 mg Tablet 1000 MG PO ×2 (08:49→17:28)
[2024-03-11 14:00] VITALS: BP 113/81; PULSE 90; RESP 16; TEMP 36.9; O2SAT 95
[2024-03-11] MEDS: nicotine 4 mg lozenge MUCOUS MEM ×2 (14:19→19:44)
--- NOTE | 2024-03-11 15:05 | P.NPUPN_ITS ---
Subjective NPU 2 Subjective: 23-year-old male recently discharged 1 w [facility] ago from the neuropsychiatric unit admitted after reporting problems with depression and having increased agitation and confusion. The patient appeared isolative and unmotivated as he stayed in bed all day. He had reported that he was currently homeless. He had admitted to struggles with compliance with his medications including his seizure medications. The patient had minimized any need for substance abuse treatment despite once again being positive for amphetamine on admission. He appeared to have limited engagement in treatment at this time. He was compliant with his oral medications and did not report any side effects. He denied any hallucinations at this time. Mental Status Exam 2 MSE Comments: This is an obese white male in hospital scrubs with adequate grooming and limited eye contact. No abnormal movements except for mild psychomotor retardation. He was minimally cooperative with exam in mild to moderate distress. Speech was slightly decreased rate and volume and childlike with mild dysarthria. Mood described as allright. His affect was restricted in range and mood incongruent. Thought process was linear. Thought content: Patient denied suicidal or homicidal ideation, there were no delusions reported noted, he denied any auditory or visual hallucinations. There was no clear paranoia noted and no evidence of delusional thinking. He denies any current suicidal or homicidal ideation. They also deny any current auditory or visual hallucinations. Attention and concentration were intact and memory appeared somewhat reliable but none were formally tested. He is alert and oriented x3. Insight and judgment are limited. His impulse control is poor. Vitals/I&O/Wt Last Vital Signs Temp 98.4 F 03/11/24 14:00 Pulse 90 03/11/24 14:00 Resp 16 03/11/24 14:00 BP 113/81 03/11/24 14:00 Pulse Ox 95 03/11/24 14:00 O2 Del Method Room Air 03/11/24 14:00 Data NPU 03/08/24 06:43 03/08/24 06:43 A&P Assessment and plan (1) Intermittent explosive disorder in adult: (2) Borderline intellectual functioning: (3) Fracture of distal phalanx of finger: Qualifiers: Encounter type: initial encounter Finger: middle finger Fracture alignment: nondisplaced Fracture type: closed Laterality: right Qualified Code(s): S62.662A - Nondisplaced fracture of distal phalanx of right middle finger, initial encounter for closed fracture (4) Depression: (5) Generalized epilepsy: (6) ADHD: Plan This is a 23-year-old white male known from past encounter with a long history of mental health issues during his childhood with clear issues of impulsivity and intellectual disability recently discharged 5 days ago. The patient has a complex history of psychiatric disorders, including depression, anxiety, paranoia, and ADHD. They also have a history of substance abuse, including tobacco, alcohol, cannabis, methamphetamine, and opioids. The patient has been to rehabilitation once and has multiple admissions to psychiatric hospitals. 1. Continue keppra and invega 6mg daily as prescribed. Consider IM invega with history of noncompliance to medications appreciated. 2. Continue every 15 minute checks for safety 3. Encourage individual, group and milieu therapy. 4. Encourage sober living treatment after discharge at the highest level care to which he is willing to commit. 5. Obtain collateral information. Involuntary Hold Information 2 96 Hour Hold: 96 Hour Involuntary Admission: Yes Other Hold: Hold End Date: 03/12/24 Attestations NPU 2 Medical Necessity Statement*: Inpatient hospitalization is medically necessary and the clinically appropriate intervention at this time we will monitor/initiate medications and make changes as indicated. Likely length of stay 3-4 days. Coding Level of Care Code Acute Code for Chg Fwd Diagnoses Intermittent explosive disorder in adult F63.81 Borderline intellectual functioning R41.83 Fracture of distal phalanx of finger S62.662A Encounter type: initial encounter Finger: middle finger Fracture alignment: nondisplaced Fracture type: closed Laterality: right Depression F32.A Generalized epilepsy G40.309 ADHD F90.9
[2024-03-11] MEDS: acetaminophen 325 mg Tablet 650 MG PO (19:43)
[2024-03-11 20:08] VITALS: BP 101/67; PULSE 56; RESP 17; TEMP 36.7; O2SAT 99
[2024-03-12 06:00] VITALS: BP 114/68; PULSE 62; RESP 17; TEMP 36.6; O2SAT 99
--- NOTE | 2024-03-12 06:19 | PC.NURSE ---
This community engagement specialist spoke with patient this am. pt stated that upon discharge from this facility he did not want to go to a homeless intermediate he wanted to just be released from this hospital. pt stated if he was forced to go to the homeless intermediate he would simple just walk off as soon as he got dropped off so he could go to his moms. he stated he wanted to walk to where his mom is staying in a tent, then they would go and get a hotel room. this community engagement specialist assured pt that no one could force him to go an stay at a homeless intermediate an that it was in his rights to go an live with his mom.
[2024-03-12] MEDS: nicotine 4 mg lozenge MUCOUS MEM (08:12)
[2024-03-12] MEDS: levETIRAcetam 500 mg Tablet 1000 MG PO (08:12)
[2024-03-12] MEDS: paliperidone ER 6 mg Tablet PO (08:12)
[2024-03-12] MEDS: OLANZapine 5 mg ODT PO (10:35)
[2024-03-12 13:31] VITALS: BP 130/94; PULSE 97; RESP 16; TEMP 36.6; O2SAT 100
[2024-03-12] MEDS: acetaminophen 325 mg Tablet 650 MG PO (13:44)
--- NOTE | 2024-03-12 13:58 | P.NPUDS_ITS ---
Diagnoses at Discharge Discharge Diagnosis (1) Intermittent explosive disorder in adult: Status: Acute (2) Borderline intellectual functioning: Status: Acute (3) Fracture of distal phalanx of finger: Status: Inactive Qualifiers: Encounter type: initial encounter Finger: middle finger Fracture alignment: nondisplaced Fracture type: closed Laterality: right Qualified Code(s): S62.662A - Nondisplaced fracture of distal phalanx of right middle finger, initial encounter for closed fracture (4) Depression: Status: Inactive (5) Generalized epilepsy: Status: Acute (6) ADHD: Status: Acute Reason for Visit Reason for Visit: SI Brief History: History of Present Illness Raad Dasilva is a 23 year old male most recently discharged from the neuropsychiatric unit on 03/03/2024 who presented to the emergency department with complaints of auditory and visual hallucinations. He had reported that he was hearing voices telling him to kill himself. He had reported to nurses here that he had been homeless despite reporting that he had been staying at a friend's home. He had admitted to noncompliance with his current medication regimen and was admitted back to the neuropsychiatric unit for further evaluation and treatment. The patient was an extremely poor historian and refused to discuss any of the events that had led to his hospitalization here. Current Medications: Keppra 1000mg bid, Invega 3mg daily, Excerpt from NPU Discharge Summary on 03/03/24. Discharge Diagnosis (1) Fracture of distal phalanx of finger : Status: Inactive Qualifiers: Encounter type: initial encounter Finger: middle finger Fracture alignment: nondisplaced Fracture type: closed Laterality: right Qualified Code(s): S62.662A - Nondisplaced fracture of distal phalanx of right middle finger, initial encounter for closed fracture (2) Contusion of right knee: Status: Inactive Qualifiers: Encounter type: initial encounter Qualified Code(s): S80.01XA - Contusion of right knee, initial encounter (3) Gastroenteritis: Status: Inactive (4) Depression: Status: Inactive (5) Generalized epilepsy: Status: Acute (6) Borderline intellectual functioning: Status: Acute (7) Intermittent explosive disorder in a dult: Status: Acute (8) ADHD: Status: Acute Reason for Visit SI Brief History: History of Present Illness Raad Dasilva is a 23 year old male who presented to the emergency department with the following report: Chief Complaint: Psychiatric Symptoms Stated Complaint: SI Time Seen by Provider: 02/26/24 20:33 History of Present Illness: 23-year-old male who presents emergency room with suicidal ideation. He says he has not been taking his depression medications. He says he wants to quit suicide but does not have any specific plan at this time. He was admitted to the neuropsychiatric unit for definitive treatment of those issues. He is known to [facility] psychiatric services through an emergency room consult and some limited outpatient contacts. An excerpt of his 2022 emergency room contact is included below for historical context. He presents today reporting: Chief complaint The patient came to the hospital to get on the medication that they need to be on. History of the present complaint The patient, born on 2000, presented with a history of multiple admissions to psychiatric hospitals, estimating the number to be between 20 and 30 times. The last admission was reported to be a few months prior to the current consultation. The patient has been diagnosed with epilepsy and has been prescribed Keppra for seizure management. The patient reported a history of substance use, including tobacco, alcohol, marijuana, and methamphetamine. The patient started smoking and drinking alcohol at the age of 19. The patient recently started using marijuana for pain management but did not find it effective. The patient reported previous use of methamphetamine but has since stopped. The patient has been to rehab once but expressed a strong desire not to return. The patient reported experiencing symptoms of depression from a young age, describing feelings of sadness, helplessness, and hopelessness. The patient also reported sleep problems, low mood, and low energy. There were instances where the patient wished not to be alive and has attempted suicide twice, once by overdosing and another time by cutting the wrist. The patient also reported experiencing anxiety, often worrying about potential outcomes and being unable to stop these thoughts. There were instances where the patient felt paranoid, believing that people were out to get them or following them. The patient also reported occasional auditory and visual hallucinations. The patient denied any self-injurious behavior such as cutting or burning themselves. The patient reported having nightmares and flashbacks about traumatic events but did not elaborate on the nature of these events. The patient denied having obsessive-compulsive behaviors such as repeated hand washing or counting steps. The patient also denied engaging in behaviors such as stealing, setting fires, or being cruel to animals. The patient was previously identified as having Attention Deficit Hyperactivity Disorder (ADHD). The patient reported a history of foster care due to allegations of drug use by the mother. The patient was placed in multiple foster homes before eventually returning to their mother. The patient also reported being placed in a psychiatric torrez due to a disability. The patient reported witnessing a friend , which was a traumatic event for them. The patient reported previous treatment with Abilify but did not specify the reason for discontinuation. The patient expressed a preference to restart Abilify over starting a new medication, Invega. The patient denied any current suicidal or homicidal ideation but reported feeling slightly paranoid. The patient denied any current hallucinations. Mental health history The patient has a history of multiple admissions to psychiatric hospitals, with the exact number being uncertain. They have been prescribed Keppra for epileptic seizures. The patient has a history of depression, with symptoms including sadness, feelings of hopelessness, sleep problems, low mood, and low energy. They have attempted suicide twice, once by suffocating themselves and once by cutting their wrist. The patient also experiences anxiety, paranoia, and occasional auditory and visual hallucinations. They have been diagnosed with ADHD in the past. Social history The patient has a history of tobacco use, both smoking and vaping, which started at the age of 19. They also started consuming alcohol at the same age. They have recently started using cannabis for pain relief. They have previously used methamphetamine and opioids, but are not currently using these substances. They have been to rehab once. The patient has a history of driving under the influence and has been charged with paraphernalia, underage drinking, and possession. They have two children with two different women, but do not have contact with them. The patient has worked at a [email or web address] for a year and a half. They currently live with their mother, sister, sister's boyfriend, mother's boyfriend, and a friend. Per his 01/29/2023 [facility] psychiatric consultation: History of Present Illness Raad Dasilav is a 22 year old male who presented to the emergency department with the following report: Chief Complaint: Psychiatric Symptoms Stated Complaint: SI Time Seen by Provider: 01/29/23 06:52 Source: patient and EMS Mode of arrival: EMS Limitations: no limitations History of Present Illness: 22-year-old male is here with EMS he sta kendrick that he called into work this morning him and his mom got in a fight over that and he told her using a slit his wrist. He states that he is not suicidal he said he is just saying that he stated he is depressed he feels like he needs to be on meds he denies having any suicidal plan at this time. Associated symptoms: Reports depression. A psychiatric consult was requested to assess whether inpatient services were needed versus discharge. 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 He reports that he is not currently taking psychiatric medication but has in the past. He endorses having inpatient psychiatric hospitalizations during his childhood mostly secondary to issues surrounding poor impulse control and anger. He reports that he does have seizures and takes Keppra for that. He reports that he woke up this morning feeling not that good and thought to himself he needed to get his medications adjusted. So he called EMS. He reports that there have been a dispute with his mom this morning that led him to being a bit irritable. Reports are that somebody and EMS heard him say that he was going to slit his wrist or something of that nature. He reported at first that he never said it. Then he reported he did not remember saying it discussed the fact that he will sometimes say things they do not mean or say things angry in the moment. He over and over stressed that he was not suicidal had no thoughts to hurt himself or anyone else nor would he. We had a long discussion about the importance of being in care even if you are not on medication so that when rough days, you have resources in place. We also discussed at length the crisis stabilization unit and its availability times etc. Discussing that if he had a moment like he had this morning he could have a place that he could call or go to immediately and he like that idea. He had a family member in the room who was supportive of the fact that he has these intermittent explosions that do not lead to anything just angry outbursts. We reviewed his additional history developmental, family etc. and there were no issues germane to this decision today. Hospital Course Hospital Course During the hospitalization, the patient had routine laboratory studies which w ere within normal limits except for a few outliers.? The patient was restarted on his outpatient medications and appeared initially tired and unwilling to provide information regarding why he had returned after he is discharged less than a week before from the NPU. He had stated that he was homeless. He had no acts of aggression noted here. He was able to take Invega and this was increased to a dose of 6 mg prior to discharge. Additionally, there was a general medical evaluation which was also within normal limits and revealed no new acute processes.? At the time of discharge, lethality was denied and psychosis was resolving.? Mood and anxiety were well managed.? The patient endorsed a plan to avoid all drugs of abuse and follow up with the aftercare recommendations of the treatment team.? The patient was evaluated and deemed to be absent credible lethality and had achieved the maximum benefit from an inpatient hospitalization, and so was discharged. ? Involuntary Hold Information 96 Hour Hold: 96 Hour Involuntary Admission: Yes Other Hold: Hold End Date: 03/12/24 Mental Status Exam MSE Comments: This is an obese white male in hospital scrubs with adequate grooming and limited eye contact. No abnormal movements except for mild psychomotor retardation. He was minimally cooperative with exam in mild to moderate distress. Speech was slightly decreased rate and volume and childlike with mild dysarthria. Mood described as good. His affect was restricted in range. Thought process was linear. Thought content: Patient denied suicidal or homicidal ideation, there were no delusions reported noted, he denied any auditory or visual hallucinations. There was no clear paranoia noted and no evidence of delusional thinking. He denies any current suicidal or homicidal ideation. They also deny any current auditory or visual hallucinations. Attention and concentration were intact and memory appeared somewhat reliable but none were formally tested. He is alert and oriented x3. Insight is feeble. His judgment is limited. His impulse control is limited as well. Discharge Data Studies Completed and Pending: Laboratory Results WBC 9.77 10^3/uL (3.2 9-11.43) 03/08/24 06:43 RBC 5.47 10^6/uL (3.8 5-5.65) 03/08/24 06:43 Hgb 16.30 g/dL (11.27 -16.99) 03/08/24 06:43 Hct 45.8 % (37-53) 03/08/24 06:43 MCV 83.7 fl (82-101) 03/08/24 06:43 MCH 29.8 pg (27-33) 03/08/24 06:43 MCHC 35.6 g/dL (30-55) 03/08/24 06:43 RDW 13.0 % (12.1-15.1 ) 03/08/24 06:43 Plt Count 272 10^3/cmm (157 -399) 03/08/24 06:43 MPV 10.4 fL (7.4-10.4 ) 03/08/24 06:43 Neut % (Auto) 84.6 % 03/08/24 06:43 Lymph % (Auto) 9.9 % 03/08/24 06:43 [place] % (Auto) 4.1 % 03/08/24 06:43 Eos % (Auto) 0.7 % 03/08/24 06:43 Baso % (Auto) 0.4 % 03/08/24 06:43 Neut # (Auto) 8.26 10^3/uL (1.8 -7.7) H 03/08/24 06:43 Lymph # (Auto) 1.0 10^3/uL (0.8- 4.8) 03/08/24 06:43 [place] # (Auto) 0.4 10^3/uL (0.2- 0.9) 03/08/24 06:43 Eos # (Auto) 0.1 10^3/uL (0.0- 0.8) 03/08/24 06:43 Baso # (Auto) 0.0 10^3/uL (0.0- 0.1) 03/08/24 06:43 Nucleated RBC % (a uto) 0 % 03/08/24 06:43 Nucleated RBCs # 0.0 /100WBC 03/08/24 06:43 Sodium 137 mmol/L (136-1 45) 03/08/24 06:43 Potassium 3.4 mmol/L (3.5-5 .1) L 03/08/24 06:43 Chloride 101 mmol/L (98-10 7) 03/08/24 06:43 Carbon Dioxide 23 mmol/L (22-29) 03/08/24 06:43 Anion Gap 16.4 (5-19) 03/08/24 06:43 BUN 11 mg/dL (6-20) 03/08/24 06:43 Creatinine 0.9 mg/dL (0.7-1. 2) 03/08/24 06:43 GFR Calculation 105.5 mL/min (90- 130) 03/08/24 06:43 Glucose 150 mg/dL (65-115 ) H 03/08/24 06:43 Calculated Osmolal ity 286 mOsm/kg (285- 295) 03/08/24 06:43 Calcium 9.8 mg/dL (8.5-10 .5) 03/08/24 06:43 Total Bilirubin 0.7 mg/dL (0.15-1 .2) 03/08/24 06:43 AST 17 U/L (0-40) 03/08/24 06:43 ALT 24 U/L (0-41) 03/08/24 06:43 Alkaline Phosphata se 83 U/L (40-130) 03/08/24 06:43 Total Protein 7.1 g/dL (6.6-8.7 ) 03/08/24 06:43 Albumin 4.6 g/dL (3.5-5.2 ) 03/08/24 06:43 Globulin 2.5 g/dL (1.3-4.6 ) 03/08/24 06:43 Urine Color Dark yellow (Yel low) A 03/08/24 06:30 Urine Appearance Clear (CLEAR) 03/08/24 06:30 Urine pH 5.5 (5-7) 03/08/24 06:30 Ur Specific Gravit y 1.027 (1.005-1.0 30) 03/08/24 06:30 Urine Protein Trace (Negative) A 03/08/24 06:30 Urine Glucose (UA) Negative (Normal ) 03/08/24 06:30 Urine Ketones Trace (Negative) 03/08/24 06:30 Urine Blood Negative (Negati ve) 03/08/24 06:30 Urine Nitrate Negative (Negati ve) 03/08/24 06:30 Urine Bilirubin Negative (Negati ve) 03/08/24 06:30 Urine Urobilinogen 1.0 mg/dL (Negati ve) 03/08/24 06:30 Ur Leukocyte Yesenia ase Negative (Negati ve) 03/08/24 06:30 Urine RBC 0-2 /hpf (0-2) 03/08/24 06:30 Urine WBC 0-5 /hpf (0-5) 03/08/24 06:30 Ur Squamous Epith Cells 0-5 /hpf (0-5) 03/08/24 06:30 Calcium Oxalate Cr ystal 5-10 /hpf H 03/08/24 06:30 Amorphous Sediment Not Reportable 03/08/24 06:30 Urine Bacteria None seen /hpf (N ONE) 03/08/24 06:30 Hyaline Casts 1.21 /lpf 03/08/24 06:30 Urine Mucus 1+ /hpf 03/08/24 06:30 Salicylates 0.4 mg/dL (3-10) L 03/08/24 06:43 Urine Opiates Scre en Negative ng/mL (N egative) 03/08/24 06:30 Acetaminophen < 5.0 ug/mL (10-3 0) L 03/08/24 06:43 Ur Barbiturates Sc reen Negative ng/mL (N egative) 03/08/24 06:30 Ur Phencyclidine S crn Negative ng/mL (N egative) 03/08/24 06:30 Ur Amphetamines Sc reen Positive ng/mL (N egative) H 03/08/24 06:30 U Benzodiazepines Scrn Negative ng/mL (N egative) 03/08/24 06:30 Urine Cocaine Scre en Negative ng/mL (N egative) 03/08/24 06:30 U Marijuana (THC) Screen Positive ng/mL (N egative) H 03/08/24 06:30 Vitals: Last Vital Signs Temp 97.9 F 03/12/24 13:31 Pulse 97 03/12/24 13:31 Resp 16 03/12/24 13:31 BP 130/94 03/12/24 13:31 Pulse Ox 100 03/12/24 13:31 O2 Del Method Room Air 03/12/24 13:31 Discharge Plan Discharge Patient Disposition: Home Condition: Stable Prescriptions: New paliperidone 6 mg Tablet Extended Release 24 Hr 6 mg PO DAILY 30 Days Qty: 30 1RF Continued epinephrine 0.3 mg/0.3 mL auto-injector 0.3 mg IM . DIRECTED PRN (Reason: Allergic Reaction) levetiracetam 500 mg Tablet 1,000 mg PO BID 30 Days Qty: 120 1RF Discontinued paliperidone 3 mg Tablet Extended Release 24 Hr 3 mg PO DAILY 30 Days Qty: 30 1RF Discharge Orders: Discharge Order (Routine); Ordered 03/12/24 Ordered By: Kendall Wesley Referrals: [facility] [Other] (Call Nyasia for any insurance related questions or d ischarge needs.) [facility] [Outside] Anayeli Fong MD [Physician] - 04/27/24 1:15 pm (Follow up) Familia Gil MD [Physician] - 03/31/24 10:45 am (Follow up) Discharge Diet: Usual diet Discharge Activity: Resume usual activity Patient Instructions: Epinephrine (By injection), Levetiracetam (By mouth), Paliperidone (By mouth), Epilepsy (DC), Suicide Prevention (DC), Opioid Safety Discharge Attestations NPU Time Spent in Discharge Care*: less than 30 min Specific Discharge Activities: Specific discharge activities: educating patient, discussing with case management rn/social workers/dc planners and docume nting/other paperwork Coding Level of Care Code Acute Code for Chg Fwd Diagnoses Intermittent explosive disorder in adult F63.81 Borderline intellectual functioning R41.83 Fracture of distal phalanx of finger S62.662L Encounter type: initial encounter Finger: middle finger Fracture alignment: nondisplaced Fracture type: closed Laterality: right Depression F32.A Generalized epilepsy G40.309 ADHD F90.9
[2024-03-12 14:06] VITALS: BP 130/94; PULSE 97; RESP 16; TEMP 36.6; O2SAT 100
== END 2024-03-12 15:29 | disposition home or self-care (01) | DRG 883 ==
LOC: ER 07:57 → NP 08:22
PROVIDERS: Admitting Provider Psychiatry & Neurology Psychiatry; Emergency Provider Family Medicine; PCP Physician Assistant; Visit Provider Psychiatry & Neurology Psychiatry
DX: F63.81 Intermittent explosive disorder (principal); Z59.01 Sheltered homelessness; R45.851 Suicidal ideations; Z91.128 Patient's intentional underdosing of medication regimen for other reason; F17.210 Nicotine dependence, cigarettes, uncomplicated; F17.290 Nicotine dependence, other tobacco product, uncomplicated; R41.83 Borderline intellectual functioning; F32.A Depression, unspecified; G40.409 Other generalized epilepsy and epileptic syndromes, not intractable, without status epilepticus; F90.9 Attention-deficit hyperactivity disorder, unspecified type; S62.662D Nondisplaced fracture of distal phalanx of right middle finger, subsequent encounter for fracture with routine healing; X58.XXXD Exposure to other specified factors, subsequent encounter
CPT/HCPCS: 36415; 80053; 80306; 80307; 81001; 85025; 97150; 97165; 99285

== ENCOUNTER 2024-03-12 20:15 | Emergency (ER) | payer MEDICAID, SELFPAY ==
[2024-03-12 20:19] VITALS: BP 116/86; PULSE 84; RESP 20; TEMP 36.6; O2SAT 95
--- NOTE | 2024-03-12 20:24 | W.ED.SEIZURE ---
HPI - Seizure General: Chief Complaint: Seizure Stated Complaint: SEIZURE Time Seen by Provider: 03/12/24 20:19 History of Present Illness: HPI Narrative: 43-year-old male with history of seizure disorder who presents to the emergency room after having a seizure. He was discharged from the psychiatric unit after being admitted for suicidal ideation. Apparently he was with some people and smoked a large amount of marijuana and then had a seizure. He is no longer postictal. He is no longer seizing. Estimated around 5 minutes of seizure-like activity. Seizure History: Yes Related Data Home Medications Medication Instructions Recorded Confirmed epinephrine 0.3 mg/0.3 mL 0.3 mg IM . DIRECTED PRN 03/08/24 03/08/24 injection, auto-injector Allergic Reaction Previous Rx's Medication Instructions Recorded levetiracetam 500 mg tablet 1,000 mg (2 x 500 mg) PO BID 30 03/12/24 days #120 tabs paliperidone 6 mg tablet,extended 6 mg PO DAILY 30 days #30 tabs 03/12/24 release 24 hr Allergies Allergy/AdvReac Type Severity Reaction Status Date / Time banana Allergy ALGY-Anaphy Verified 03/03/24 22:53 laxis divalproex sodium Allergy Unknown Verified 03/03/24 22:53 [From Depakote] methylphenidate Allergy Unknown Verified 03/03/24 22:53 [From Ritalin] strawberry Allergy ALGY-Anaphy Verified 03/03/24 22:53 laxis blueberries Allergy ALGY-Anaphy Uncoded 03/03/24 22:53 laxis bangladeshi rolls Allergy ALGY-Anaphy Uncoded 03/03/24 22:53 laxis Review of Systems Narrative: Constitutional symptoms: Negative except as documented in HPI. Skin symptoms: Negative except as documented in HPI. Eye symptoms: Negative except as documented in HPI. ENMT symptoms: Negative except as documented in HPI. Respiratory symptoms: Negative except as documented in HPI. Cardiovascular symptoms: Negative except as documented in HPI. Gastrointestinal symptoms: Negative except as documented in HPI. Genitourinary symptoms: Negative except as documented in HPI. Musculoskeletal symptoms: Negative except as documented in HPI. Neurologic symptoms: Negative except as documented in HPI. Psychiatric symptoms: Negative except as documented in HPI. Endocrine symptoms: Negative except as documented in HPI. PFSH ED PFSH: Medical History No pertinent family history Surgical History No pertinent past surgical history Physical Exam Narrative: EXAM NARRATIVE: General: Alert, no acute distress. Skin: Warm, dry. Head: Normocephalic, atraumatic. Neck: Supple, trachea midline. Eye: Extraocular movements are intact. Ears, nose, mouth and throat: mucosa moist. Cardiovascular: Regular, Normal peripheral perfusion. Respiratory: Lungs are clear to auscultation, respirations are non-labored, breath sounds are equal, Symmetrical chest wall expansion. Gastrointestinal: Soft, Nontender, Non distended Musculoskeletal: Normal ROM, no deformity. Neurological: Alert and oriented, No focal neurological deficit observed. Psychiatric: Cooperative, appropriate mood & affect. Course Vital Signs: Vital signs: Vital Signs Temperature 98 F 03/12/24 20:19 Pulse Rate 72 03/12/24 20:35 Respiratory Rate 16 03/12/24 20:35 Blood Pressure 116/86 03/12/24 20:35 Pulse Oximetry 96 03/12/24 20:35 Oxygen Delivery Me thod Room Air 03/12/24 20:35 MDM - Seizure No radiology studies performed this visit ED provider radiology interpretation(s): Assessment and plan: Seizure ? 2 g IV Keppra in the emergency room. - Discharged home - Discussed plan with patient. Answered any questions. - Evaluation and treatment of this problem were appropriate in the emergency setting. \ Discharge Plan Discharge Patient Disposition: Home Clinical Impression: Epileptic seizure Condition: Stable Prescriptions: No Action epinephrine 0.3 mg/0.3 mL auto-injector 0.3 mg IM . DIRECTED PRN (Reason: Allergic Reaction) paliperidone 6 mg Tablet Extended Release 24 Hr 6 mg PO DAILY 30 Days Qty: 30 1RF levetiracetam 500 mg Tablet 1,000 mg PO BID 30 Days Qty: 120 1RF Discharge Orders: Discharge ED (Routine); Ordered 03/12/24 Ordered By: Ethel Garner Referrals: Marguerite Blank PA [Primary Care Provider] - Discharge Diet: Usual diet Discharge Activity: Increase activity as tolerated Patient Instructions: Opioid Safety, Pain Management Activity Restrictions/Additional Instructions: With your seizure disorder I would suggest that you do not smoke anything. No marijuana and nothing else. Thank you for choosing [facility] for your healthcare needs today. Please realize this is an emergency room and that we are providing you with a medical screening exam and this may not be complete and all inclusive of all the testing and or work up that you may need to determine your ailment or severity of your illness. You have been screened and evaluated and felt safe for discharge. Health conditions do change or evolve sometimes and as such it is important that you follow up with your Primary Doctor to be re checked, 3-5 days is a general good time frame for follow up. You are always welcome to return to the ED for re assessment if your symptoms are worsening or you have new concerns Coding Level of Care Code ED Supersonic Engineer for Shreya Horner
[2024-03-12] MEDS: levETIRAcetam 2,000 MG/200 ML PREMIX 400 MG IV (20:33)
[2024-03-12 20:35] VITALS: BP 116/86; PULSE 72; RESP 16; O2SAT 96
[2024-03-12 21:54] VITALS: BP 130/85; PULSE 92; O2SAT 95
== END 2024-03-12 21:55 | disposition home or self-care (01) ==
PROVIDERS: Emergency Provider Emergency Medicine; PCP Physician Assistant
DX: G40.909 Epilepsy, unspecified, not intractable, without status epilepticus (principal)
CPT/HCPCS: 96374; 99284; J1953

== ENCOUNTER 2024-03-20 22:58 | Inpatient (IN) | payer MEDICAID, SELFPAY ==
[2024-03-20 23:00] VITALS: BP 123/72; PULSE 90; RESP 16; TEMP 36.9; O2SAT 100; BMI 34.0
[2024-03-21 00:51] LABS: Basophils % 0.3 %; Eosinophils # 0.1 10^3/uL (0.0-0.8); Eosinophils % 1.2 %; Hematocrit 42.2 % (37-53); Lymphocytes # 1.3 10^3/uL (0.8-4.8); Lymphocytes % 11.7 %; Mean Corpuscular HGB Conc 33.9 g/dL (30-55); Mean Corpuscular Hemoglobin 28.8 pg (27-33); Mean Corpuscular Volume 85.1 fl (82-101); Mean Platelet Volume 10.7 fL (7.4-10.4); Monocytes # 0.6 10^3/uL (0.2-0.9); Monocytes % 5.6 %; Neutrophils # 8.69 10^3/uL (1.8-7.7); Nucleated Red Blood Cells % 0 %; Platelet Count 214 10^3/cmm (157-399); Red Blood Count 4.96 10^6/uL (3.85-5.65); Red Cell Distribution Width 13.2 % (12.1-15.1); White Blood Count 10.73 10^3/uL (3.29-11.43)
[2024-03-21 01:14] LABS: Acetaminophen < 5.0 ug/mL (10-30); Alanine Aminotransferase 19 U/L (0-41); Albumin Level 4.2 g/dL (3.5-5.2); Alcohol Level < 10 mg/dL (0-10); Alkaline Phosphatase 79 U/L (40-130); Anion Gap 13.8 (5-19); Aspartate Amino Transferase 14 U/L (0-40); Blood Urea Nitrogen 16 mg/dL (6-20); Calcium 9.2 mg/dL (8.5-10.5); Carbon Dioxide 26 mmol/L (22-29); Chloride 105 mmol/L (98-107); Creatinine Clr Calc Pharmacy 153.2368; Globulin 2.1 g/dL (1.3-4.6); Glomerular Filtration Rate 105.5 mL/min (90-130); Glucose 134 mg/dL (65-115); Osmolality Calculated 295 mOsm/kg (285-295); Potassium 3.8 mmol/L (3.5-5.1); Salicylate < 0.3 mg/dL (3-10); Sodium 141 mmol/L (136-145); Total Bilirubin 0.5 mg/dL (0.15-1.2); Total Protein 6.3 g/dL (6.6-8.7)
--- NOTE | 2024-03-21 03:28 | W.ED.PSYCHS ---
HPI - Psych General: Chief Complaint: Psychiatric Symptoms Stated Complaint: MHE Time Seen by Provider: 03/20/24 23:03 History of Present Illness: 23-year-old male well-known to the emergency department service as well as a neuropsychiatric floor service. He presents with anxiety, auditory hallucinations. He has not been taking his medications. He was recently hospitalized and discharged 1 week ago for the neuropsych department here at the hospital. He says he has not taken his medications, because he believes the paliperidone is making his tongue swell. He took a hit off of a THC pen last evening, and had increased anxiety with hallucinations. He he is not suicidal currently, but notes that thoughts come and go . Related Data Home Medications Medication Instructions Recorded Confirmed epinephrine 0.3 mg/0.3 mL 0.3 mg IM . DIRECTED PRN 03/08/24 03/08/24 injection, auto-injector Allergic Reaction levetiracetam 500 mg tablet 1,000 mg PO BID 03/21/24 03/21/24 Previous Rx's Medication Instructions Recorded levetiracetam 500 mg tablet 1,000 mg (2 x 500 mg) PO BID 30 03/12/24 days #120 tabs paliperidone 6 mg tablet,extended 6 mg PO DAILY 30 days #30 tabs 03/12/24 release 24 hr Allergies Allergy/AdvReac Type Severity Reaction Status Date / Time banana Allergy ALGY-Anaphy Verified 03/03/24 22:53 laxis divalproex sodium Allergy Unknown Verified 03/03/24 22:53 [From Depakote] methylphenidate Allergy Unknown Verified 03/03/24 22:53 [From Ritalin] strawberry Allergy ALGY-Anaphy Verified 03/03/24 22:53 laxis blueberries Allergy ALGY-Anaphy Uncoded 03/03/24 22:53 laxis kosovan rolls Allergy ALGY-Anaphy Uncoded 03/03/24 22:53 laxis [facility] ED PFSH: Medical History No pertinent family history Surgical History No pertinent past surgical history Physical Exam Const: COMMON NORMALS: no acute distress GENERAL APPEARANCE: cooperative and lethargic; not ill appearing and not frail appearing ORIENTATION/CONSCIOUSNESS: Yes lethargic HENMT: COMMON NORMALS: normocephalic, atraumatic and Normal external nose present HEAD & SCALP: normocephalic and atraumatic FACE & SINUS: normal facial exam and face symmetric NOSE: Normal external nose present Eye: COMMON NORMALS: Equal, round and reactive pupils present and EOMs intact bilaterally PUPIL: Yes Equal, round and reactive pupils present Neck/C-Spine: GENERAL: Yes trachea midline Chest: CHEST: Yes Symmetrical chest wall rise Resp: COMMON NORMALS: normal respiratory effort, No retractions, No use of accessory muscles and clear to auscultation bilaterally AUSCULTATION: clear to auscultation bilaterally Cardio: COMMON NORMALS: regular rate and regular rhythm RATE: regular rate RHYTHM: regular rhythm GI: COMMON NORMALS: Normal to inspection, nondistended, normoactive bowel sounds present Extremity: COMMON NORMALS: no pedal edema Neuro: JA COMA SCALE: document GCS findings Chrisney coma scale eye opening: Spontaneous Ja coma scale verbal response: Orientated Chrisney coma scale motor response: Obey commands Chrisney coma scale total score: 15 SENSORIUM/ORIENTATION: Yes lethargic SENSORY EXAM: Yes extremities (intact) Psych: COMMON NORMALS: speech normal APPEARANCE: Yes unkempt ATTITUDE: Yes Withdrawn affect present ACTIVITY/MOTOR BEHAVIOR: Yes psychomotor slowing SPEECH: Yes normal speech MOOD & AFFECT: Yes apathetic and Yes Flat affect present THOUGHT CONTENT: Yes Hallucination(s) present Skin: COMMON NORMALS: no rashes or lesions noted GENERAL SKIN EXAM: no rashes or lesions noted Course Vital Signs: Vital signs: Vital Signs Temperature 98.1 F 03/21/24 07:45 Pulse Rate 74 03/21/24 13:58 Respiratory Rate 16 03/21/24 13:58 Blood Pressure 161/70 03/21/24 13:58 Pulse Oximetry 97 03/21/24 13:58 Oxygen Delivery Me thod Room Air 03/21/24 13:58 MDM - Psych Medical Decision Making 23-year-old is quite lethargic on exam, but answers questions appropriately. He does admit to hearing voices, but denies suicidality currently. He does state that he has been suicidal in the last 24 hours. I spoke with psychiatry. As the patient has been noncompliant with medications, it would be advantageous for him to try this first. He has not truly failed outpatient therapy at this point given his medication noncompliance. We will let him sleep off his intoxication, and see if his hallucinations improved. If not, psychiatry will evaluate for the potential need for admission.Medically, he is stable. His laboratory is not remarkable. Raad is awake. he is still complaining of auditory hallucinations, and is convinced he is having an adverse reaction to his medication. Spoke with psychiatry again. he will be admitted voluntarily. they agree to accept. Lab Data 03/21/24 00:44 12 00:44 Laboratory Results WBC 10.73 10^3/uL (3.29-11.43) 03/21/24 00:44 RBC 4.96 10^6/uL (3.85-5.65) 03/21/24 00:44 Hgb 14.30 g/dL (11.27-16.99) 03/21/24 00:44 Hct 42.2 % (37-53) 03/21/24 00:44 MCV 85.1 fl (82-101) 03/21/24 00:44 MCH 28.8 pg (27-33) 03/21/24 00:44 MCHC 33.9 g/dL (30-55) 03/21/24 00:44 RDW 13.2 % (12.1-15.1) 03/21/24 00:44 Plt Count 214 10^3/cmm (157-399) 03/21/24 00:44 MPV 10.7 fL (7.4-10.4) H 03/21/24 00:44 Neut % (Auto) 81.0 % 03/21/24 00:44 Lymph % (Auto) 11.7 % 03/21/24 00:44 [place] % (Auto) 5.6 % 03/21/24 00:44 Eos % (Auto) 1.2 % 03/21/24 00:44 Baso % (Auto) 0.3 % 03/21/24 00:44 Neut # (Auto) 8.69 10^3/uL (1.8-7.7) H 03/21/24 00:44 Lymph # (Auto) 1.3 10^3/uL (0.8-4.8) 03/21/24 00:44 [place] # (Auto) 0.6 10^3/uL (0.2-0.9) 03/21/24 00:44 Eos # (Auto) 0.1 10^3/uL (0.0-0.8) 03/21/24 00:44 Baso # (Auto) 0.0 10^3/uL (0.0-0.1) 03/21/24 00:44 Nucleated RBC % (auto) 0 % 03/21/24 00:44 Nucleated RBCs # 0.0 /100WBC 03/21/24 00:44 Sodium 141 mmol/L (136-145) 03/21/24 00:44 Potassium 3.8 mmol/L (3.5-5.1) 03/21/24 00:44 Chloride 105 mmol/L (98-107) 03/21/24 00:44 Carbon Dioxide 26 mmol/L (22-29) 03/21/24 00:44 Anion Gap 13.8 (5-19) 03/21/24 00:44 BUN 16 mg/dL (6-20) 03/21/24 00:44 Creatinine 0.9 mg/dL (0.7-1.2) 03/21/24 00:44 GFR Calculation 105.5 mL/min (90-130) 03/21/24 00:44 Glucose 134 mg/dL (65-115) H 03/21/24 00:44 Calculated Osmolality 295 mOsm/kg (285-295) 03/21/24 00:44 Calcium 9.2 mg/dL (8.5-10.5) 03/21/24 00:44 Total Bilirubin 0.5 mg/dL (0.15-1.2) 03/21/24 00:44 AST 14 U/L (0-40) 03/21/24 00:44 ALT 19 U/L (0-41) 03/21/24 00:44 Alkaline Phosphatase 79 U/L (40-130) 03/21/24 00:44 Total Protein 6.3 g/dL (6.6-8.7) L 03/21/24 00:44 Albumin 4.2 g/dL (3.5-5.2) 03/21/24 00:44 Globulin 2.1 g/dL (1.3-4.6) 03/21/24 00:44 Salicylates < 0.3 mg/dL (3-10) L 03/21/24 00:44 Acetaminophen < 5.0 ug/mL (10-30) L 03/21/24 00:44 Ethyl Alcohol < 10 mg/dL (0-10) 03/21/24 00:44 No radiology studies performed this visit Discharge Plan Discharge Patient Disposition: Admitted As Inpatient Admit Provider: Bobby Toscano Clinical Impression: Acute psychosis Condition: Stable Coding Level of Care Code ED Department Sales Manager for Shreya Horner
--- NOTE | 2024-03-21 04:02 | PC.NURSE ---
Rounded on pt. Pt sleeping at this time. Resp even/unlabored. Skin w/p/d
[2024-03-21 06:58] VITALS: BP 129/72; PULSE 89; O2SAT 98
--- NOTE | 2024-03-21 07:41 | PC.NURSE ---
took over pt care from TOMÁS Chi at 0700.
[2024-03-21 07:45] VITALS: BP 133/92; PULSE 67; RESP 18; TEMP 36.7; O2SAT 92
[2024-03-21] MEDS: nicotine 4 mg lozenge MUCOUS MEM ×2 (08:30→11:29)
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
--- NOTE | 2024-03-21 09:13 | PC.NURSE ---
Patient requested to talk to social services technician tomorrow to help him with his disability because he says it was messed up.
[2024-03-21 09:43] LABS: Bilirubin Urine Negative (Negative); Blood Urine Negative (Negative); Glucose Urine UA Negative (Normal); Ketones Urine Trace (Negative); Leukocyte Esterase Urine Negative (Negative); Nitrate Urine Negative (Negative); Protein Urine Negative (Negative); Specific Gravity, Urine 1.028 (1.005-1.030); Urine Appearance Clear (CLEAR); Urine Color Yellow (Yellow); pH Urine 5.5 (5-7)
[2024-03-21 09:48] LABS: Add Urine Microscopic? YES; Bacteria Urine None Seen /hpf; Hyaline Casts Urine 0.81 /lpf; RBC Urine 0-2 /hpf (0-2); Squamous Epithelial Cell Urine 0-5 /hpf (0-5); WBC Urine 0-5 /hpf (0-5)
[2024-03-21 10:00] LABS: Amphetamines Screen Urine Positive (Negative); Barbiturates Screen Urine Negative (Negative); Benzodiazepines Screen Urine Negative (Negative); Cocaine Screen Urine Negative (Negative); Opiate Screen Urine Negative (Negative); PCP Screen Urine Negative (Negative); THC Screen Urine Positive (Negative)
[2024-03-21] MEDS: OLANZapine 5 mg ODT PO (10:14)
--- NOTE | 2024-03-21 11:12 | P.NPUHP_ITS ---
Providers/Chief Complaint 2 Admitting Physician: Bobby Toscano MD Primary Care Provider: Marguerite Blank Chief Complaint: MHE HPI NPU History of Present Illness Raad Dasilva is a 23 year old male who presented to the emergency department with the following report: Chief Complaint: Psychiatric Symptoms Stated Complaint: MHE Time Seen by Provider: 03/20/24 23:03 History of Present Illness: 23-year-old male well-known to the emergency department service as well as a neuropsychiatric floor service. He presents with anxiety, auditory hallucinations. He has not been taking his medications. He was recently hospitalized and discharged 1 week ago for the neuropsych department here at the hospital. He says he has not taken his medications, because he believes the paliperidone is making his tongue swell. He took a hit off of a THC pen last evening, and had increased anxiety with hallucinations. He he is not suicidal currently, but notes that thoughts come and go . He was admitted to the neuropsychiatric unit for definitive treatment of those issues. This represents his third inpatient hospitalization here, all of which have occurred since 02/27/2024. An excerpt of his last discharge summary is included below for context and the fact that there have been no substantive changes. He presents today reporting that things have been tough since he left. He reports that he thinks he needs his medication adjusted. However we had a lengthy discussion about the fact that at both of his last 2 admissions his drug screen was positive for marijuana and amphetamines. He denied use of amphetamine but we discussed the fact that for some people the marijuana itself is sufficient to create perceptual disturbances and psychosis. We discussed him needing to address his issue with addiction he wanted to be able to depend on the medication to help. He seemed to be ambivalent about this position but was identifying that he may need to find a new place to stay. He otherwise reported that he was not feeling any major side effects of the medication just not feeling it worked. Again we stressed the fact that having a clear mind may not be compatible with cannabis and methamphetamines. We discussed maintaining his current medication and possibly working with the treatment team tomorrow on some kind of sober living treatment facility that may allow us to identify the role that the addiction is playing in his functionality. Per his 03/12/2024 [facility] inpatient psychiatric discharge summary: SI Brief History: History of Present Illness Raad Dasilva is a 23 year old male most recently discharged from the neuropsychiatric unit on 03/03/2024 who presented to the emergency department with complaints of auditory and visual hallucinations. He had reported that he was hearing voices telling him to kill himself. He had reported to nurses here that he had been homeless despite reporting that he had been staying at a friend's home. He had admitted to noncompliance with his current medication regimen and was admitted back to the neuropsychiatric unit for further evaluation and treatment. The patient was an extremely poor historian and refused to discuss any of the events that had led to his hospitalization here. Current Medications: Keppra 1000mg bid, Invega 3mg daily, Excerpt from NPU Discharge Summary on 03/03/24. Discharge Diagnosis (1) Fracture of distal phalanx of finger: Status: Inactive Qualifiers: Encounter type: initial encounter Finger: middle finger Fracture alignment: nondisplaced Fracture type: closed Laterality: right Qualified Code(s): S62.662A - Nondisplaced fracture of distal phalanx of right middle finger, initial encounter for closed fracture (2) Contusion of right knee: Status: Inactive Qualifiers: Encounter type: initial encounter Qualified Code(s): S80.01XA - Contusion of right knee, initial encounter (3) Gastroenteritis: Status: Inactive (4) Depression: Status: Inactive (5) Generalized epilepsy: Status: Acute (6) Borderline intellectual functioning: Status: Acute (7) Intermittent explosive disorder in adult: Status: Acute (8) ADHD: Status: Acute Reason for Visit SI Brief History: History of Present Illness Raad Dasilva is a 23 year old male who presented to the emergency department with the following report: Chief Complaint: Psychiatric Symptoms Stated Complaint: SI Time Seen by Provider: 02/26/24 20:33 History of Present Illness: 23-year-old male who presents emergency room with suicidal ideation. He says he has not been taking his depression medications. He says he wants to quit suicide but does not have any specific plan at this time. He was admitted to the neuropsychiatric unit for definitive treatment of those issues. He is known to [facility] psychiatric services through an emergency room consult and some limited outpatient contacts. An excerpt of his 2022 emergency room contact is included below for historical context. He presents today reporting: Chief complaint The patient came to the hospital to get on the medication that they need to be on. History of the present complaint The patient, born on 2000, presented with a history of multiple admissions to psychiatric hospitals, estimating the number to be between 20 and 30 times. The last admission was reported to be a few months prior to the current consultation. The patient has been diagnosed with epilepsy and has been prescribed Keppra for seizure management. The patient reported a history of substance use, including tobacco, alcohol, marijuana, and methamphetamine. The patient started smoking and drinking alcohol at the age of 19. The patient recently started using marijuana for pain management but did not find it effective. The patient reported previous use of methamphetamine but has since stopped. The patient has been to rehab once but expressed a strong desire not to return. The patient reported experiencing symptoms of depression from a young age, describing feelings of sadness, helplessness, and hopelessness. The patient also reported sleep problems, low mood, and low energy. There were instances where the patient wished not to be alive and has attempted suicide twice, once by overdosing and another time by cutting the wrist. The patient also reported experiencing anxiety, often worrying about potential outcomes and being unable to stop these thoughts. There were instances where the patient felt paranoid, believing that people were out to get them or following them. The patient also reported occasional auditory and visual hallucinations. The patient denied any self-injurious behavior such as cutting or burning themselves. The patient reported having nightmares and flashbacks about traumatic events but did not elaborate on the nature of these events. The patient denied having obsessive-compulsive behaviors such as repeated hand washing or counting steps. The patient also denied engaging in behaviors such as stealing, setting fires, or being cruel to animals. The patient was previously identified as having Attention Deficit Hyperactivity Disorder (ADHD). The patient reported a history of foster care due to allegations of drug use by the mother. The patient was placed in multiple foster homes before eventually returning to their mother. The patient also reported being placed in a psychiatric torrez due to a disability. The patient reported witnessing a friend , which was a traumatic event for them. The patient reported previous treatment with Abilify but did not specify the reason for discontinuation. The patient expressed a preference to restart Abilify over starting a new medication, Invega. The patient denied any current suicidal or homicidal ideation but reported feeling slightly paranoid. The patient denied any current hallucinations. Mental health history The patient has a history of multiple admissions to psychiatric hospitals, with the exact number being uncertain. They have been prescribed Keppra for epileptic seizures. The patient has a history of depression, with symptoms including sadness, feelings of hopelessness, sleep problems, low mood, and low energy. They have attempted suicide twice, once by suffocating themselves and once by cutting their wrist. The patient also experiences anxiety, paranoia, and occasional auditory and visual hallucinations. They have been diagnosed with ADHD in the past. Social history The patient has a history of tobacco use, both smoking and vaping, which started at the age of 19. They also started consuming alcohol at the same age. They have recently started using cannabis for pain relief. They have previously used methamphetamine and opioids, but are not currently using these substances. They have been to rehab once. The patient has a history of driving under the influence and has been charged with paraphernalia, underage drinking, and possession. They have two children with two different women, but do not have contact with them. The patient has worked at a [employer] for a year and a half. They currently live with their mother, sister, sister's boyfriend, mother's boyfriend, and a friend. Per his 01/29/2023 [facility] psychiatric consultation: History of Present Illness Raad Dasilva is a 22 year old male who presented to the emergency department with the following report: Chief Complaint: Psychiatric Symptoms Stated Complaint: SI Time Seen by Provider: 01/29/23 06:52 Source: patient and EMS Mode of arrival: EMS Limitations: no limitations History of Present Illness: 22-year-old male is here with EMS he states that he called into work this morning him and his mom got in a fight over that and he told her using a slit his wrist. He states that he is not suicidal he said he is just saying that he stated he is depressed he feels like he needs to be on meds he denies having any suicidal plan at this time. Associated symptoms: Reports depression. A psychiatric consult was requested to assess whether inpatient services were needed versus discharge. 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 He reports that he is not currently taking psychiatric medication but has in the past. He endorses having inpatient psychiatric hospitalizations during his childhood mostly secondary to issues surrounding poor impulse control and anger. He reports that he does have seizures and takes Keppra for that. He reports that he woke up this morning feeling not that good and thought to himself he needed to get his medications adjusted. So he called EMS. He reports that there have been a dispute with his mom this morning that led him to being a bit irritable. Reports are that somebody and EMS heard him say that he was going to slit his wrist or something of that nature. He reported at first that he never said it. Then he reported he did not remember saying it discussed the fact that he will sometimes say things they do not mean or say things angry in the moment. He over and over stressed that he was not suicidal had no thoughts to hurt himself or anyone else nor would he. We had a long discussion about the importance of being in care even if you are not on medication so that when rough days, you have resources in place. We also discussed at length the crisis stabilization unit and its availability times etc. Discussing that if he had a moment like he had this morning he could have a place that he could call or go to immediately and he like that idea. He had a family member in the room who was supportive of the fact that he has these intermittent explosions that do not lead to anything just angry outbursts. We reviewed his additional history developmental, family etc. and there were no issues germane to this decision today. Hospital Course During the hospitalization, the patient had routine laboratory studies which were within normal limits except for a few outliers. The patient was restarted on his outpatient medications and appeared initially tired and unwilling to provide information regarding why he had returned after he is discharged less than a week before from the NPU. He had stated that he was homeless. He had no acts of aggression noted here. He was able to take Invega and this was increased to a dose of 6 mg prior to discharge. Additionally, there was a general medical evaluation which was also within normal limits and revealed no new acute processes. At the time of discharge, lethality was denied and psychosis was resolving. Mood and anxiety were well managed. The patient endorsed a plan to avoid all drugs of abuse and follow up with the aftercare recommendations of the treatment team. The patient was evaluated and deemed to be absent credible lethality and had achieved the maximum benefit from an inpatient hospitalization, and so was discharged. Meds NPU Home Medications Medication Instructions Recorded Confirmed Last Taken Type epinephrine 0.3 mg/0.3 mL 0.3 mg IM . DIRECTED PRN 03/08/24 03/08/24 Unknown History injection, auto-injector Allergic Reaction levetiracetam 500 mg tablet 1,000 mg (2 x 500 mg) PO BID 30 03/12/24 Unknown Rx days #120 tabs paliperidone 6 mg tablet,extended 6 mg PO DAILY 30 days #30 tabs 03/12/24 Unknown Rx release 24 hr levetiracetam 500 mg tablet 1,000 mg PO BID 03/21/24 03/21/24 Unknown History Allergies Allergy/AdvReac Type Severity Reaction Status Date / Time banana Allergy ALGY-Anaphy Verified 03/03/24 22:53 laxis divalproex sodium Allergy Unknown Verified 03/03/24 22:53 [From Depakote] methylphenidate Allergy Unknown Verified 03/03/24 22:53 [From Ritalin] strawberry Allergy ALGY-Anaphy Verified 03/03/24 22:53 laxis blueberries Allergy ALGY-Anaphy Uncoded 03/03/24 22:53 laxis serbian rolls Allergy ALGY-Anaphy Uncoded 03/03/24 22:53 laxis PFSH NPU 2 PFSH: Medical History No pertinent family history Surgical History No pertinent past surgical history Mental Status Exam 2 MSE Comments: This is an obese white male in hospital scrubs with adequate grooming and limited eye contact. No abnormal movements except for psychomotor retardation. Cooperative with exam in mild to moderate distress. Speech was slightly decreased rate and volume and childlike with mild dysarthria. Mood described as a little depressed, affect congruent. Thought process linear. Thought content: Patient denied suicidal or homicidal ideation, there were no delusions reported noted, he denied any auditory or visual hallucinations. The patient reports feeling a little paranoid, but denies any current suicidal or homicidal ideation. They also deny any current auditory or visual hallucinations. Attention and concentration were intact and memory appeared somewhat reliable but none were formally tested. He is alert and oriented x3. Insight and judgment limited impulse control limited versus impaired. Vitals/I&O/Wt Last Vital Signs Temp 98.1 F 03/21/24 07:45 Pulse 67 03/21/24 07:45 Resp 18 03/21/24 07:45 BP 133/92 03/21/24 07:45 Pulse Ox 92 03/21/24 07:45 O2 Del Method Room Air 03/21/24 08:02 Weight last 48 hrs Weight 104.326 kg Data NPU 03/21/24 00:44 03/21/24 00:44 A&P Assessment and plan (1) Intermittent explosive disorder in adult: (2) Borderline intellectual functioning: (3) Fracture of distal phalanx of finger: Qualifiers: Encounter type: initial encounter Finger: middle finger Fracture alignment: nondisplaced Fracture type: closed Laterality: right Qualified Code(s): S62.662A - Nondisplaced fracture of distal phalanx of right middle finger, initial encounter for closed fracture (4) Depression: (5) Generalized epilepsy: (6) ADHD: (7) Cannabis use disorder, moderate, dependence: (8) Methamphetamine use disorder, moderate, dependence: (9) Acute psychosis: Plan This is a 23-year-old white male known from past encounters with a long history of mental health issues during his childhood with clear issues of impulsivity and intellectual disability recently discharged 9 days ago and presented to that hospitalization having only been gone 5 days. The patient has a complex history of psychiatric disorders, including depression, anxiety, paranoia, and ADHD. They also have a history of substance abuse, including tobacco, alcohol, cannabis, methamphetamine, and opioids. The patient has been to rehabilitation once and has multiple admissions to psychiatric hospitals. 1. Continue current medication. 2. Continue every 15 minute checks for safety 3. Encourage individual, group and milieu therapy. 4. Encourage sober living treatment after discharge at the highest level care to which he is willing to commit. We need to also identify how significant the role of addiction is. 5. Obtain collateral information. We will need to determine whether this repeat hospitalization represents an actual need for inpatient acute care or reflects his limitations on utilizing his outpatient resources and if so this will be a fairly quick admission. Involuntary Hold Information 2 96 Hour Hold: 96 Hour Involuntary Admission: No Other Hold: Hold End Date: 03/12/24 Attestations NPU 2 Medical Necessity Statement*: Inpatient hospitalization is medically necessary and the clinically appropriate intervention at this time. We will monitor/initiate medications and make changes as indicated. He will be in the hospital for over 2 midnights. Likely length of stay 5-7 days. Coding Level of Care Code Acute Code for [facility] Fwd Diagnoses Intermittent explosive disorder in adult F63.81 Borderline intellectual functioning R41.83 Fracture of distal phalanx of finger S62.662A Encounter type: initial encounter Finger: middle finger Fracture alignment: nondisplaced Fracture type: closed Laterality: right Depression F32.A Generalized epilepsy G40.309 ADHD F90.9 Cannabis use disorder, moderate, dependence F12.20 Methamphetamine use disorder, moderate, dependence F15.20 Acute psychosis F23
[2024-03-21 13:58] VITALS: BP 161/70; PULSE 74; RESP 16; O2SAT 97
--- NOTE | 2024-03-21 19:52 | PC.NURSE ---
vs not collected resp 16 pt ref charge notified
[2024-03-21] MEDS: levETIRAcetam 500 mg Tablet 1000 MG PO (21:04)
--- NOTE | 2024-03-21 22:39 | PC.NURSE ---
vs not collected resp 16 charge notified
[2024-03-22 04:42] VITALS: BP 96/55; PULSE 52; RESP 16; O2SAT 98
[2024-03-22] MEDS: levETIRAcetam 500 mg Tablet 1000 MG PO ×2 (08:16→20:03)
--- NOTE | 2024-03-22 11:19 | W.PM.NPUPNS ---
Subjective NPU Subjective: Patient presented today reporting that he is doing okay. Staff reports conversations where patient acknowledged that he has had methamphetamine use and this was also confirmed in direct conversation. We for him to have sobriety for his medications to have a chance to be effective. We discussed trying to work with the social work team to figure out some options so that he is active in treatment to ensure that he can have sobriety after discharge. He denied any side effects to the medication. Mental Status Exam MSE Comments: This is an obese white male in hospital scrubs with adequate grooming and limited eye contact. No abnormal movements except for psychomotor retardation. Cooperative with exam in mild to moderate distress. Speech was slightly decreased rate and volume and childlike with mild dysarthria. Mood described as a little depressed, affect congruent. Thought process linear. Thought content: Patient denied suicidal or homicidal ideation, there were no delusions reported noted, he denied any auditory or visual hallucinations. The patient reports feeling a little paranoid, but denies any current suicidal or homicidal ideation. They also deny any current auditory or visual hallucinations. Attention and concentration were intact and memory appeared somewhat reliable but none were formally tested. He is alert and oriented x3. Insight and judgment limited impulse control limited versus impaired. Vitals/I&O/Wt Last Vital Signs Temp 98.1 F 03/21/24 07:45 Pulse 52 L 03/22/24 04:42 Resp 16 03/22/24 04:42 BP 96/55 03/22/24 04:42 Pulse Ox 98 03/22/24 04:42 O2 Del Method Room Air 03/22/24 04:42 Weight last 48 hrs Weight 104.326 kg Data NPU 03/21/24 00:44 03/21/24 00:44 A&P Assessment and plan (1) Intermittent explosive disorder in adult: (2) Borderline intellectual functioning: (3) Fracture of distal phalanx of finger: Qualifiers: Encounter type: initial encounter Finger: middle finger Fracture alignment: nondisplaced Fracture type: closed Laterality: right Qualified Code(s): S62.662A - Nondisplaced fracture of distal phalanx of right middle finger, initial encounter for closed fracture (4) Depression: (5) Generalized epilepsy: (6) ADHD: (7) Cannabis use disorder, moderate, dependence: (8) Methamphetamine use disorder, moderate, dependence: (9) Acute psychosis: Plan This is a 23-year-old white male known from past encounters with a long history of mental health issues during his childhood with clear issues of impulsivity and intellectual disability recently discharged 9 days ago and presented to that hospitalization having only been gone 5 days. The patient has a complex history of psychiatric disorders, including depression, anxiety, paranoia, and ADHD. They also have a history of substance abuse, including tobacco, alcohol, cannabis, methamphetamine, and opioids. The patient has been to rehabilitation once and has multiple admissions to psychiatric hospitals. 1. Continue current medication. 2. Continue every 15 minute checks for safety 3. Encourage individual, group and milieu therapy. 4. Encourage sober living treatment after discharge at the highest level care to which he is willing to commit. We need to also identify how significant the role of addiction is. 5. Obtain collateral information. We will need to determine whether this repeat hospitalization represents an actual need for inpatient acute care or reflects his limitations on utilizing his outpatient resources and if so this will be a fairly quick admission. Involuntary Hold Information 96 Hour Hold: 96 Hour Involuntary Admission: No Attestations NPU Medical Necessity Statement*: Inpatient hospitalization is medically necessary and the clinically appropriate intervention at this time. We will monitor/initiate medications and make changes as indicated. Likely length of stay 3-5 days. Coding Level of Care Code Acute Code for [facility] Fwd Diagnoses Intermittent explosive disorder in adult F63.81 Borderline intellectual functioning R41.83 Fracture of distal phalanx of finger S62.662A Encounter type: initial encounter Finger: middle finger Fracture alignment: nondisplaced Fracture type: closed Laterality: right Depression F32.A Generalized epilepsy G40.309 ADHD F90.9 Cannabis use disorder, moderate, dependence F12.20 Methamphetamine use disorder, moderate, dependence F15.20 Acute psychosis F23
[2024-03-22] MEDS: nicotine 4 mg lozenge MUCOUS MEM ×2 (12:33→15:31)
[2024-03-22] MEDS: hyDROXYzine 25 mg Capsule 50 MG PO (13:33)
[2024-03-22 13:50] VITALS: BP 98/45; PULSE 82; RESP 16; TEMP 37; O2SAT 97
[2024-03-22] MEDS: OLANZapine 5 mg ODT PO ×2 (15:29→20:03)
[2024-03-22] MEDS: haloperidol 5 mg Tablet PO (18:04)
[2024-03-22] MEDS: trazodone 50 mg Tablet PO (20:03)
[2024-03-22 21:38] VITALS: BP 114/80; PULSE 71; RESP 18; TEMP 37.2; O2SAT 99
[2024-03-23 06:00] VITALS: BP 109/58; PULSE 78; RESP 18; TEMP 36.3; O2SAT 100
[2024-03-23] MEDS: levETIRAcetam 500 mg Tablet 1000 MG PO ×2 (08:22→21:31)
[2024-03-23 14:00] VITALS: BP 97/61; PULSE 71; RESP 18; TEMP 36.6; O2SAT 98
--- NOTE | 2024-03-23 18:29 | P.NPUPN_ITS ---
Subjective NPU 2 Subjective: Patient presented today reporting that he is doing okay. We discussed his acknowledgment of using methamphetamine and he is working with the social work team on possible sober living options that could allow him to get a better hold on his sobriety which we discussed with the very foundational and supportive of his mental health. He denied any side effects of medication. Mental Status Exam 2 MSE Comments: This is an obese white male in hospital scrubs with adequate grooming and limited eye contact. No abnormal movements except for psychomotor retardation. Cooperative with exam in mild to moderate distress. Speech was slightly decreased rate and volume and childlike with mild dysarthria. Mood described as a little depressed, affect congruent. Thought process linear. Thought content: Patient denied suicidal or homicidal ideation, there were no delusions reported noted, he denied any auditory or visual hallucinations. The patient reports feeling a little paranoid, but denies any current suicidal or homicidal ideation. They also deny any current auditory or visual hallucinations. Attention and concentration were intact and memory appeared somewhat reliable but none were formally tested. He is alert and oriented x3. Insight and judgment limited impulse control limited versus impaired. Vitals/I&O/Wt Last Vital Signs Temp 98.0 F 03/23/24 20:30 Pulse 74 03/23/24 20:30 Resp 18 03/23/24 20:30 BP 101/57 03/23/24 20:30 Pulse Ox 100 03/23/24 20:30 O2 Del Method Room Air 03/23/24 20:30 Data NPU 03/21/24 00:44 03/21/24 00:44 A&P Assessment and plan (1) Intermittent explosive disorder in adult: (2) Borderline intellectual functioning: (3) Fracture of distal phalanx of finger: Qualifiers: Encounter type: initial encounter Finger: middle finger Fracture alignment: nondisplaced Fracture type: closed Laterality: right Qualified Code(s): S62.662A - Nondisplaced fracture of distal phalanx of right middle finger, initial encounter for closed fracture (4) Depression: (5) Generalized epilepsy: (6) ADHD: (7) Cannabis use disorder, moderate, dependence: (8) Methamphetamine use disorder, moderate, dependence: (9) Acute psychosis: Plan This is a 23-year-old white male known from past encounters with a long history of mental health issues during his childhood with clear issues of impulsivity and intellectual disability recently discharged 9 days ago and presented to that hospitalization having only been gone 5 days. The patient has a complex history of psychiatric disorders, including depression, anxiety, paranoia, and ADHD. They also have a history of substance abuse, including tobacco, alcohol, cannabis, methamphetamine, and opioids. The patient has been to rehabilitation once and has multiple admissions to psychiatric hospitals. 1. Continue current medication. 2. Continue every 15 minute checks for safety 3. Encourage individual, group and milieu therapy. 4. Encourage sober living treatment after discharge at the highest level care to which he is willing to commit. We need to also identify how significant the role of addiction is. Patient acknowledged role of addiction and his poor functioning. 5. Obtain collateral information. Involuntary Hold Information 2 96 Hour Hold: 96 Hour Involuntary Admission: No Attestations NPU 2 Medical Necessity Statement*: Inpatient hospitalization is medically necessary and the clinically appropriate intervention at this time. We will monitor/initiate medications and make changes as indicated. Likely length of stay 2-5 days. Coding Level of Care Code Acute Code for [facility] Fwd Diagnoses Intermittent explosive disorder in adult F63.81 Borderline intellectual functioning R41.83 Fracture of distal phalanx of finger S62.662A Encounter type: initial encounter Finger: middle finger Fracture alignment: nondisplaced Fracture type: closed Laterality: right Depression F32.A Generalized epilepsy G40.309 ADHD F90.9 Cannabis use disorder, moderate, dependence F12.20 Methamphetamine use disorder, moderate, dependence F15.20 Acute psychosis F23
[2024-03-23 20:30] VITALS: BP 101/57; PULSE 74; RESP 18; TEMP 36.7; O2SAT 100
[2024-03-23] MEDS: trazodone 50 mg Tablet PO (21:32)
--- NOTE | 2024-03-24 06:20 | PC.NURSE ---
vd not collected resp 18 pt ref charge notified
[2024-03-24] MEDS: levETIRAcetam 500 mg Tablet 1000 MG PO ×2 (08:20→22:00)
[2024-03-24] MEDS: nicotine 4 mg lozenge MUCOUS MEM ×2 (08:21→14:05)
--- NOTE | 2024-03-24 08:49 | PC.NURSE ---
PT UP FOR BREAKFAST. FLAT AFFECT IS NOTED WITH DEPRESSED MOOD. DENIES PAIN. DENIES SI/HI AT THIS TIME. CONTINUES TO ENDORSE SEEING SHADOWS AND HEARING PEOPLE MUMBLE. EDUCATED PT THAT IF THE AVH BECOMES BOTHERSOME TO LET THIS RN KNOW AND WILL GIVE MEDICATIONS IF NEEDED. RATES ANXIETY 2/10 AND DEPRESSION /. REPORTS HE SLEPT GOOD. STATES GOAL FOR THE DAY IS TO GO TO GROUPS. MEDICATION COMPLIANT. ALL QUESTIONS ANSWERED AND SUPPORT VOICED.
--- NOTE | 2024-03-24 12:35 | PC.NURSE ---
NEW ORDERS RECEIVED FROM DR. MCDANIELS TO HAVE OT COME AND COMPLETE KHELS TESTING ON PT TO ASSESS PT ADLS AND SAFETY. ORDERS PLACED. EDUCATION PROVIDED TO PT. VERBALIZED UNDERSTANDING.
[2024-03-24 14:00] VITALS: BP 104/75; PULSE 98; RESP 17; TEMP 36.6; O2SAT 99
--- NOTE | 2024-03-24 17:58 | P.NPUPN_ITS ---
Subjective NPU 2 Subjective: Patient presented today reporting that things are going okay. He reported having an openness to an F for sober living treatment. He continued to identify that he is working with the social work team on those options. He denied any side effects to the medication. Mental Status Exam 2 MSE Comments: This is an obese white male in hospital scrubs with adequate grooming and limited eye contact. No abnormal movements except for psychomotor retardation. Cooperative with exam in mild to moderate distress. Speech was slightly decreased rate and volume and childlike with mild dysarthria. Mood described as a little depressed, affect congruent. Thought process linear. Thought content: Patient denied suicidal or homicidal ideation, there were no delusions reported noted, he denied any auditory or visual hallucinations. The patient reports feeling a little paranoid, but denies any current suicidal or homicidal ideation. They also deny any current auditory or visual hallucinations. Attention and concentration were intact and memory appeared somewhat reliable but none were formally tested. He is alert and oriented x3. Insight and judgment limited impulse control limited versus impaired. Vitals/I&O/Wt Last Vital Signs Temp 97.9 F 03/24/24 14:00 Pulse 98 03/24/24 14:00 Resp 17 03/24/24 14:00 BP 104/75 03/24/24 14:00 Pulse Ox 99 03/24/24 14:00 O2 Del Method Room Air 03/23/24 20:30 Data NPU 03/21/24 00:44 03/21/24 00:44 A&P Assessment and plan (1) Intermittent explosive disorder in adult: (2) Borderline intellectual functioning: (3) Fracture of distal phalanx of finger: Qualifiers: Encounter type: initial encounter Finger: middle finger Fracture alignment: nondisplaced Fracture type: closed Laterality: right Qualified Code(s): S62.662A - Nondisplaced fracture of distal phalanx of right middle finger, initial encounter for closed fracture (4) Depression: (5) Generalized epilepsy: (6) ADHD: (7) Cannabis use disorder, moderate, dependence: (8) Methamphetamine use disorder, moderate, dependence: (9) Acute psychosis: Plan This is a 23-year-old white male known from past encounters with a long history of mental health issues during his childhood with clear issues of impulsivity and intellectual disability recently discharged 9 days ago and presented to that hospitalization having only been gone 5 days. The patient has a complex history of psychiatric disorders, including depression, anxiety, paranoia, and ADHD. They also have a history of substance abuse, including tobacco, alcohol, cannabis, methamphetamine, and opioids. The patient has been to rehabilitation once and has multiple admissions to psychiatric hospitals. 1. Continue current medication. 2. Continue every 15 minute checks for safety 3. Encourage individual, group and milieu therapy. 4. Encourage sober living treatment after discharge at the highest level care to which he is willing to commit. We need to also identify how significant the role of addiction is. Patient acknowledged role of addiction and his poor functioning. 5. Obtain collateral information. Involuntary Hold Information 2 96 Hour Hold: 96 Hour Involuntary Admission: No Attestations NPU 2 Medical Necessity Statement*: Inpatient hospitalization is medically necessary and the clinically appropriate intervention at this time. We will monitor/initiate medications and make changes as indicated. Likely length of stay 2-5 days. Coding Level of Care Code Acute Code for [facility] Fwd Diagnoses Intermittent explosive disorder in adult F63.81 Borderline intellectual functioning R41.83 Fracture of distal phalanx of finger S62.662A Encounter type: initial encounter Finger: middle finger Fracture alignment: nondisplaced Fracture type: closed Laterality: right Depression F32.A Generalized epilepsy G40.309 ADHD F90.9 Cannabis use disorder, moderate, dependence F12.20 Methamphetamine use disorder, moderate, dependence F15.20 Acute psychosis F23
[2024-03-24 21:28] VITALS: BP 103/59; PULSE 76; RESP 16; TEMP 36.8; O2SAT 97
[2024-03-24] MEDS: trazodone 50 mg Tablet PO (22:00)
[2024-03-24] MEDS: hyDROXYzine 25 mg Capsule 50 MG PO (22:00)
--- NOTE | 2024-03-25 06:21 | PC.NURSE ---
pt johnny vs resp 16 charge notified
[2024-03-25] MEDS: levETIRAcetam 500 mg Tablet 1000 MG PO ×2 (08:23→20:46)
[2024-03-25] MEDS: nicotine 4 mg lozenge MUCOUS MEM ×2 (08:29→15:19)
[2024-03-25] MEDS: hyDROXYzine 25 mg Capsule 50 MG PO (10:06)
[2024-03-25 14:00] VITALS: BP 107/72; PULSE 87; RESP 16; TEMP 36.8; O2SAT 100
[2024-03-25 19:35] VITALS: BP 137/72; PULSE 75; RESP 18; TEMP 36.6; O2SAT 99
[2024-03-25] MEDS: trazodone 50 mg Tablet PO (20:46)
--- NOTE | 2024-03-25 21:36 | P.NPUPN_ITS ---
Subjective NPU 2 Subjective: Patient presented today continuing to show continued focus on his sobriety and working with the social work team on possibilities for mental health/sober living residential care facilities. He continues to take his medication as prescribed. He denied any side effects to the medication. Mental Status Exam 2 MSE Comments: This is an obese white male in hospital scrubs with adequate grooming and limited eye contact. No abnormal movements except for psychomotor retardation. Cooperative with exam in mild to moderate distress. Speech was slightly decreased rate and volume and childlike with mild dysarthria. Mood described as a little depressed, affect congruent. Thought process linear. Thought content: Patient denied suicidal or homicidal ideation, there were no delusions reported noted, he denied any auditory or visual hallucinations. The patient reports feeling a little paranoid, but denies any current suicidal or homicidal ideation. They also deny any current auditory or visual hallucinations. Attention and concentration were intact and memory appeared somewhat reliable but none were formally tested. He is alert and oriented x3. Insight and judgment limited impulse control limited versus impaired. Vitals/I&O/Wt Last Vital Signs Temp 97.9 F 03/25/24 19:35 Pulse 75 03/25/24 19:35 Resp 18 03/25/24 19:35 BP 137/72 03/25/24 19:35 Pulse Ox 99 03/25/24 19:35 O2 Del Method Room Air 03/24/24 21:28 Data NPU 03/21/24 00:44 03/21/24 00:44 A&P Assessment and plan (1) Intermittent explosive disorder in adult: (2) Borderline intellectual functioning: (3) Fracture of distal phalanx of finger: Qualifiers: Encounter type: initial encounter Finger: middle finger Fracture alignment: nondisplaced Fracture type: closed Laterality: right Qualified Code(s): S62.662A - Nondisplaced fracture of distal phalanx of right middle finger, initial encounter for closed fracture (4) Depression: (5) Generalized epilepsy: (6) ADHD: (7) Cannabis use disorder, moderate, dependence: (8) Methamphetamine use disorder, moderate, dependence: (9) Acute psychosis: Plan This is a 23-year-old white male known from past encounters with a long history of mental health issues during his childhood with clear issues of impulsivity and intellectual disability recently discharged 9 days ago and presented to that hospitalization having only been gone 5 days. The patient has a complex history of psychiatric disorders, including depression, anxiety, paranoia, and ADHD. They also have a history of substance abuse, including tobacco, alcohol, cannabis, methamphetamine, and opioids. The patient has been to rehabilitation once and has multiple admissions to psychiatric hospitals. 1. Continue current medication. 2. Continue every 15 minute checks for safety 3. Encourage individual, group and milieu therapy. 4. Encourage sober living treatment after discharge at the highest level care to which he is willing to commit. We need to also identify how significant the role of addiction is. Patient acknowledged role of addiction and his poor functioning. Identify how he performed with his DIONY 5. Obtain collateral information. His family brought his subsidy cards and. Involuntary Hold Information 2 96 Hour Hold: 96 Hour Involuntary Admission: No Attestations NPU 2 Medical Necessity Statement*: Inpatient hospitalization is medically necessary and the clinically appropriate intervention at this time. We will monitor/initiate medications and make changes as indicated. Likely length of stay 1-4 days. Coding Level of Care Code Acute Code for [facility] Fwd Diagnoses Intermittent explosive disorder in adult F63.81 Borderline intellectual functioning R41.83 Fracture of distal phalanx of finger S62.662A Encounter type: initial encounter Finger: middle finger Fracture alignment: nondisplaced Fracture type: closed Laterality: right Depression F32.A Generalized epilepsy G40.309 ADHD F90.9 Cannabis use disorder, moderate, dependence F12.20 Methamphetamine use disorder, moderate, dependence F15.20 Acute psychosis F23
[2024-03-26 06:00] VITALS: RESP 16
--- NOTE | 2024-03-26 06:18 | PC.NURSE ---
when i went to wake pt for morning vitals pt rolled over and refused. nurse notified
[2024-03-26] MEDS: acetaminophen 325 mg Tablet 650 MG PO (07:49)
[2024-03-26] MEDS: levETIRAcetam 500 mg Tablet 1000 MG PO ×2 (07:49→21:27)
[2024-03-26] MEDS: paliperidone ER 3 mg Tablet PO (07:49)
[2024-03-26] MEDS: nicotine 4 mg lozenge MUCOUS MEM ×3 (08:33→18:37)
[2024-03-26] MEDS: ibuprofen 600 mg Tablet PO (09:03)
--- NOTE | 2024-03-26 09:22 | W.PM.NPUPNS ---
Subjective NPU Subjective: Patient presented today reporting that he is tolerating his medication without any issue. He continues to work with the social work team for possible residential options. He denied any side effects to the medication. We discussed being hopeful that we will be able to manage some kind of residential treatment options at the beginning of the week. Mental Status Exam MSE Comments: This is an obese white male in hospital scrubs with adequate grooming and limited eye contact. No abnormal movements except for psychomotor retardation. Cooperative with exam in mild to moderate distress. Speech was slightly decreased rate and volume and childlike with mild dysarthria. Mood described as a little depressed, affect congruent. Thought process linear. Thought content: Patient denied suicidal or homicidal ideation, there were no delusions reported noted, he denied any auditory or visual hallucinations. The patient reports feeling a little paranoid, but denies any current suicidal or homicidal ideation. They also deny any current auditory or visual hallucinations. Attention and concentration were intact and memory appeared somewhat reliable but none were formally tested. He is alert and oriented x3. Insight and judgment limited impulse control limited versus impaired. Vitals/I&O/Wt Last Vital Signs Temp 97.9 F 03/25/24 19:35 Pulse 75 03/25/24 19:35 Resp 16 03/26/24 06:00 BP 137/72 03/25/24 19:35 Pulse Ox 99 03/25/24 19:35 O2 Del Method Room Air 03/24/24 21:28 Data NPU 03/21/24 00:44 03/21/24 00:44 A&P Assessment and plan (1) Intermittent explosive disorder in adult: (2) Borderline intellectual functioning: (3) Fracture of distal phalanx of finger: Qualifiers: Encounter type: initial encounter Finger: middle finger Fracture alignment: nondisplaced Fracture type: closed Laterality: right Qualified Code(s): S62.662A - Nondisplaced fracture of distal phalanx of right middle finger, initial encounter for closed fracture (4) Depression: (5) Generalized epilepsy: (6) ADHD: (7) Cannabis use disorder, moderate, dependence: (8) Methamphetamine use disorder, moderate, dependence: (9) Acute psychosis: Plan This is a 23-year-old white male known from past encounters with a long history of mental health issues during his childhood with clear issues of impulsivity and intellectual disability recently discharged 9 days ago and presented to that hospitalization having only been gone 5 days. The patient has a complex history of psychiatric disorders, including depression, anxiety, paranoia, and ADHD. They also have a history of substance abuse, including tobacco, alcohol, cannabis, methamphetamine, and opioids. The patient has been to rehabilitation once and has multiple admissions to psychiatric hospitals. 1. Continue current medication. Invega 3 mg daily. 2. Continue every 15 minute checks for safety 3. Encourage individual, group and milieu therapy. 4. Encourage sober living treatment after discharge at the highest level care to which he is willing to commit. We need to also identify how significant the role of addiction is. Patient acknowledged role of addiction and his poor functioning. Identify how he performed with his DIONY 5. Obtain collateral information. His family brought his subsidy cards and try to assist him in getting his cards in order Involuntary Hold Information 96 Hour Hold: 96 Hour Involuntary Admission: No Attestations NPU Medical Necessity Statement*: Inpatient hospitalization is medically necessary and the clinically appropriate intervention at this time. We will monitor/initiate medications and make changes as indicated. Likely length of stay 1-4 days. Coding Level of Care Code Acute Code for [facility] Fwd Diagnoses Intermittent explosive disorder in adult F63.81 Borderline intellectual functioning R41.83 Fracture of distal phalanx of finger S62.662A Encounter type: initial encounter Finger: middle finger Fracture alignment: nondisplaced Fracture type: closed Laterality: right Depression F32.A Generalized epilepsy G40.309 ADHD F90.9 Cannabis use disorder, moderate, dependence F12.20 Methamphetamine use disorder, moderate, dependence F15.20 Acute psychosis F23
[2024-03-26 14:00] VITALS: BP 146/90; PULSE 82; RESP 18; TEMP 36.6; O2SAT 97
[2024-03-26 20:13] VITALS: BP 117/64; PULSE 78; RESP 16; TEMP 36.5; O2SAT 100
[2024-03-26] MEDS: trazodone 50 mg Tablet PO (21:27)
[2024-03-26] MEDS: hyDROXYzine 25 mg Capsule 50 MG PO (21:27)
[2024-03-27 06:30] VITALS: RESP 16
[2024-03-27] MEDS: nicotine 4 mg lozenge MUCOUS MEM ×5 (08:02→17:53)
[2024-03-27] MEDS: paliperidone ER 3 mg Tablet PO ×2 (08:06→11:30)
[2024-03-27] MEDS: levETIRAcetam 500 mg Tablet 1000 MG PO ×2 (08:06→20:03)
--- NOTE | 2024-03-27 09:23 | P.NPUPN_ITS ---
Subjective NPU 2 Subjective: Patient presented today reporting that he is feeling pretty good at this point from the standpoint of his mood but reported having some increase in his auditory hallucinations. We discussed the risks, benefits and alternatives of increasing the Invega to 6 mg p.o. daily and he understood and agreed to proceed as is documented in this note. We also discussed planning on switching to Invega Sustenna sometime soon. He denied any side effects of the medication. Mental Status Exam 2 MSE Comments: This is an obese white male in hospital scrubs with adequate grooming and limited eye contact. Poor dentition. No abnormal movements except for psychomotor retardation. Cooperative with exam in mild distress. Speech was slightly decreased rate and volume and childlike with mild dysarthria. Mood described as a little depressed, affect congruent. Thought process linear. Thought content: Patient denied suicidal or homicidal ideation, there were no delusions reported noted, he denied visual but endorsed some auditory hallucinations. The patient reports feeling a little paranoid, but denies any current suicidal or homicidal ideation. Attention and concentration were intact and memory appeared somewhat reliable but none were formally tested. He is alert and oriented x3. Insight and judgment limited impulse control limited versus impaired. Vitals/I&O/Wt Last Vital Signs Temp 97.7 F 03/26/24 20:13 Pulse 78 03/26/24 20:13 Resp 16 03/27/24 06:30 BP 117/64 03/26/24 20:13 Pulse Ox 100 03/26/24 20:13 O2 Del Method Room Air 03/24/24 21:28 Data NPU 03/21/24 00:44 03/21/24 00:44 A&P Assessment and plan (1) Intermittent explosive disorder in adult: (2) Borderline intellectual functioning: (3) Fracture of distal phalanx of finger: Qualifiers: Encounter type: initial encounter Finger: middle finger Fracture alignment: nondisplaced Fracture type: closed Laterality: right Qualified Code(s): S62.662A - Nondisplaced fracture of distal phalanx of right middle finger, initial encounter for closed fracture (4) Depression: (5) Generalized epilepsy: (6) ADHD: (7) Cannabis use disorder, moderate, dependence: (8) Methamphetamine use disorder, moderate, dependence: (9) Acute psychosis: Plan This is a 23-year-old white male known from past encounters with a long history of mental health issues during his childhood with clear issues of impulsivity and intellectual disability recently discharged 9 days ago and presented to that hospitalization having only been gone 5 days. The patient has a complex history of psychiatric disorders, including depression, anxiety, paranoia, and ADHD. They also have a history of substance abuse, including tobacco, alcohol, cannabis, methamphetamine, and opioids. The patient has been to rehabilitation once and has multiple admissions to psychiatric hospitals. 1. Continue current medication. Invega increased to 6 mg p.o. daily. 2. Continue every 15 minute checks for safety 3. Encourage individual, group and milieu therapy. 4. Encourage sober living treatment after discharge at the highest level care to which he is willing to commit. We need to also identify how significant the role of addiction is. Patient acknowledged role of addiction and his poor functioning. Identify how he performed with his DIONY 5. Obtain collateral information. His family brought his subsidy cards and try to assist him in getting his cards in order Involuntary Hold Information 2 96 Hour Hold: 96 Hour Involuntary Admission: No Attestations NPU 2 Medical Necessity Statement*: Inpatient hospitalization is medically necessary and the clinically appropriate intervention at this time. We will monitor/initiate medications and make changes as indicated. Likely length of stay 2 -4 days. Coding Level of Care Code Acute Code for [facility] Fwd Diagnoses Intermittent explosive disorder in adult F63.81 Borderline intellectual functioning R41.83 Fracture of distal phalanx of finger S62.662A Encounter type: initial encounter Finger: middle finger Fracture alignment: nondisplaced Fracture type: closed Laterality: right Depression F32.A Generalized epilepsy G40.309 ADHD F90.9 Cannabis use disorder, moderate, dependence F12.20 Methamphetamine use disorder, moderate, dependence F15.20 Acute psychosis F23
--- NOTE | 2024-03-27 11:22 | PC.NURSE ---
Physician orders to give one time dose invega 3mg, change daily invega to 6mg PO.
[2024-03-27 14:00] VITALS: BP 111/68; PULSE 87; RESP 18; TEMP 36.9; O2SAT 99
[2024-03-27] MEDS: hyDROXYzine 25 mg Capsule 50 MG PO ×2 (14:26→20:03)
[2024-03-27] MEDS: trazodone 50 mg Tablet PO (20:03)
[2024-03-27 20:26] VITALS: BP 104/66; PULSE 86; RESP 18; TEMP 36.3; O2SAT 98
[2024-03-28 06:00] VITALS: BP 96/53; PULSE 63; RESP 16; O2SAT 96
[2024-03-28] MEDS: nicotine 4 mg lozenge MUCOUS MEM ×3 (08:53→17:09)
[2024-03-28] MEDS: levETIRAcetam 500 mg Tablet 1000 MG PO ×2 (09:37→20:41)
[2024-03-28] MEDS: paliperidone ER 6 mg Tablet PO (09:38)
--- NOTE | 2024-03-28 12:06 | W.PM.NPUPNS ---
Subjective NPU Subjective: Patient presented today reporting that he is doing better with the increase to 6 mg of the Invega. We discussed the risks, benefits and alternatives of getting him started on the Invega Sustenna 234 mg IM and he understood and agreed to proceed as documented in this note. We discussed getting that started tomorrow and he denied any other concerns. He denied any side effects of medication. Mental Status Exam MSE Comments: This is an obese white male in hospital scrubs with adequate grooming and limited eye contact. Poor dentition. No abnormal movements except for psychomotor retardation. Cooperative with exam in mild distress. Speech was slightly decreased rate and volume and childlike with mild dysarthria. Mood described as a little depressed, affect congruent. Thought process linear. Thought content: Patient denied suicidal or homicidal ideation, there were no delusions reported noted, he denied visual but endorsed lessening auditory hallucinations. The patient reports feeling a little paranoid, but denies any current suicidal or homicidal ideation. Attention and concentration were intact and memory appeared somewhat reliable but none were formally tested. He is alert and oriented x3. Insight and judgment limited impulse control limited versus impaired. Vitals/I&O/Wt Last Vital Signs Temp 97.3 F L 03/27/24 20:26 Pulse 63 03/28/24 06:00 Resp 16 03/28/24 06:00 BP 96/53 03/28/24 06:00 Pulse Ox 96 03/28/24 06:00 O2 Del Method Room Air 03/27/24 14:00 Weight last 48 hrs Weight 113.001 kg Data NPU 03/21/24 00:44 03/21/24 00:44 A&P Assessment and plan (1) Intermittent explosive disorder in adult: (2) Borderline intellectual functioning: (3) Fracture of distal phalanx of finger: Qualifiers: Encounter type: initial encounter Finger: middle finger Fracture alignment: nondisplaced Fracture type: closed Laterality: right Qualified Code(s): S62.662A - Nondisplaced fracture of distal phalanx of right middle finger, initial encounter for closed fracture (4) Depression: (5) Generalized epilepsy: (6) ADHD: (7) Cannabis use disorder, moderate, dependence: (8) Methamphetamine use disorder, moderate, dependence: (9) Acute psychosis: Plan This is a 23-year-old white male known from past encounters with a long history of mental health issues during his childhood with clear issues of impulsivity and intellectual disability recently discharged 9 days ago and presented to that hospitalization having only been gone 5 days. The patient has a complex history of psychiatric disorders, including depression, anxiety, paranoia, and ADHD. They also have a history of substance abuse, including tobacco, alcohol, cannabis, methamphetamine, and opioids. The patient has been to rehabilitation once and has multiple admissions to psychiatric hospitals. 1. Continue current medication. Invega increased to 6 mg p.o. daily. Initiate Invega Sustenna 234 mg IM loading dose to deltoid only. 2. Continue every 15 minute checks for safety 3. Encourage individual, group and milieu therapy. 4. Encourage sober living treatment after discharge at the highest level care to which he is willing to commit. We need to also identify how significant the role of addiction is. Patient acknowledged role of addiction and his poor functioning. Identify how he performed with his DIONY 5. Obtain collateral information. His family brought his subsidy cards and try to assist him in getting his cards in order Involuntary Hold Information 96 Hour Hold: 96 Hour Involuntary Admission: No Attestations NPU Medical Necessity Statement*: Inpatient hospitalization is medically necessary and the clinically appropriate intervention at this time. We will monitor/initiate medications and make changes as indicated. Likely length of stay 1-3 days. Coding Level of Care Code Acute Code for [facility] Fwd Diagnoses Intermittent explosive disorder in adult F63.81 Borderline intellectual functioning R41.83 Fracture of distal phalanx of finger S62.662A Encounter type: initial encounter Finger: middle finger Fracture alignment: nondisplaced Fracture type: closed Laterality: right Depression F32.A Generalized epilepsy G40.309 ADHD F90.9 Cannabis use disorder, moderate, dependence F12.20 Methamphetamine use disorder, moderate, dependence F15.20 Acute psychosis F23
[2024-03-28 14:00] VITALS: BP 117/71; PULSE 104; RESP 18; TEMP 37.2; O2SAT 99
[2024-03-28] MEDS: hyDROXYzine 25 mg Capsule 50 MG PO (17:09)
[2024-03-28 19:48] VITALS: BP 118/67; PULSE 90; RESP 18; TEMP 36.6; O2SAT 97
[2024-03-28] MEDS: OLANZapine 5 mg ODT PO (20:41)
[2024-03-28] MEDS: trazodone 50 mg Tablet PO (20:41)
[2024-03-29 06:15] VITALS: RESP 16
--- NOTE | 2024-03-29 06:21 | PC.NURSE ---
pt was woke up to get vitals pt then rolled over and covered up nurse notified resp at 16
[2024-03-29] MEDS: paliperidone ER 6 mg Tablet PO (07:47)
[2024-03-29] MEDS: levETIRAcetam 500 mg Tablet 1000 MG PO ×2 (07:47→21:05)
[2024-03-29] MEDS: nicotine 4 mg lozenge MUCOUS MEM ×3 (07:49→15:53)
[2024-03-29] MEDS: haloperidol 5 mg Tablet PO (07:53)
--- NOTE | 2024-03-29 07:56 | PC.NURSE ---
Morning assessment Patient states that he slept okay last night. Patient says that his anxiety level is okay. Patient endorses auditory and visual hallucinations. This nurse administered haldol 5mg PO. Patient denies suicidal ideation. Calm and cooperative.
[2024-03-29] MEDS: paliperidone palmitate 234 mg Syringe IM (09:58)
--- NOTE | 2024-03-29 10:07 | PC.NURSE ---
INVRANDY SUSTENNA 234 MG GIVEN IM ORDERED BY PHYSICIAN IN LEFT DELTOID. TOLERATED INJECTION WELL. WILL CONT TO MONITOR INJECTION SITE FOR ANY REDNESS, SWELLING, OR IRRITATION. LOT [id number] EXP MAY 2025
[2024-03-29] MEDS: OLANZapine 5 mg ODT PO ×2 (12:42→21:05)
--- NOTE | 2024-03-29 12:42 | PC.NURSE ---
zyprexa for c/o of anxiety
[2024-03-29 15:47] VITALS: BP 116/82; PULSE 115; RESP 17; TEMP 36.7; O2SAT 99
--- NOTE | 2024-03-29 16:12 | W.PM.NPUPNS ---
Subjective NPU Subjective: Patient presented today reporting that he is doing fine overall. He received the Invega Sustenna injection after discussion of the risks, benefits and alternatives he understood and agreed to proceed as is documented in this note. We continue to talk about moving forward with placement but there is no programs that seem to be willing to take him at this time. He denied any side effects to medication. Mental Status Exam MSE Comments: This is an obese white male in hospital scrubs with adequate grooming and limited eye contact. Poor dentition. No abnormal movements except for psychomotor retardation. Cooperative with exam in mild distress. Speech was slightly decreased rate and volume and childlike with mild dysarthria. Mood described as a little depressed, affect congruent. Thought process linear. Thought content: Patient denied suicidal or homicidal ideation, there were no delusions reported noted, he denied visual but endorsed lessening auditory hallucinations. The patient reports feeling a little paranoid, but denies any current suicidal or homicidal ideation. Attention and concentration were intact and memory appeared somewhat reliable but none were formally tested. He is alert and oriented x3. Insight and judgment limited impulse control limited versus impaired. Vitals/I&O/Wt Last Vital Signs Temp 98.0 F 03/29/24 15:47 Pulse 115 H 03/29/24 15:47 Resp 17 03/29/24 15:47 BP 116/82 03/29/24 15:47 Pulse Ox 99 03/29/24 15:47 O2 Del Method Room Air 03/29/24 15:47 Weight last 48 hrs Weight 113.001 kg Data NPU 03/21/24 00:44 03/21/24 00:44 A&P Assessment and plan (1) Intermittent explosive disorder in adult: (2) Borderline intellectual functioning: (3) Fracture of distal phalanx of finger: Qualifiers: Encounter type: initial encounter Finger: middle finger Fracture alignment: nondisplaced Fracture type: closed Laterality: right Qualified Code(s): S62.662A - Nondisplaced fracture of distal phalanx of right middle finger, initial encounter for closed fracture (4) Depression: (5) Generalized epilepsy: (6) ADHD: (7) Cannabis use disorder, moderate, dependence: (8) Methamphetamine use disorder, moderate, dependence: (9) Acute psychosis: Plan This is a 23-year-old white male known from past encounters with a long history of mental health issues during his childhood with clear issues of impulsivity and intellectual disability recently discharged 9 days ago and presented to that hospitalization having only been gone 5 days. The patient has a complex history of psychiatric disorders, including depression, anxiety, paranoia, and ADHD. They also have a history of substance abuse, including tobacco, alcohol, cannabis, methamphetamine, and opioids. The patient has been to rehabilitation once and has multiple admissions to psychiatric hospitals. 1. Continue current medication. Invega increased to 6 mg p.o. daily. Initiated Invega Sustenna 234 mg IM loading dose to deltoid only. 2. Continue every 15 minute checks for safety 3. Encourage individual, group and milieu therapy. 4. Encourage sober living treatment after discharge at the highest level care to which he is willing to commit. We need to also identify how significant the role of addiction is. Patient acknowledged role of addiction and his poor functioning. Identify how he performed with his DIONY 5. Obtain collateral information. His family brought his subsidy cards and try to assist him in getting his cards in order Involuntary Hold Information 96 Hour Hold: 96 Hour Involuntary Admission: No Attestations NPU Medical Necessity Statement*: Inpatient hospitalization is medically necessary and the clinically appropriate intervention at this time. We will monitor/initiate medications and make changes as indicated. Likely length of stay 1-3 days. Coding Level of Care Code Acute Code for [facility] Fwd Diagnoses Intermittent explosive disorder in adult F63.81 Borderline intellectual functioning R41.83 Fracture of distal phalanx of finger S62.662A Encounter type: initial encounter Finger: middle finger Fracture alignment: nondisplaced Fracture type: closed Laterality: right Depression F32.A Generalized epilepsy G40.309 ADHD F90.9 Cannabis use disorder, moderate, dependence F12.20 Methamphetamine use disorder, moderate, dependence F15.20 Acute psychosis F23
[2024-03-29 20:59] VITALS: BP 110/70; PULSE 70; RESP 18; TEMP 36.7; O2SAT 97
[2024-03-29] MEDS: trazodone 50 mg Tablet PO (21:05)
[2024-03-30 06:00] VITALS: RESP 18
--- NOTE | 2024-03-30 06:19 | PC.NURSE ---
Patient refused,Nurse Notified.
[2024-03-30] MEDS: nicotine 4 mg lozenge MUCOUS MEM ×3 (09:19→16:48)
[2024-03-30] MEDS: paliperidone ER 6 mg Tablet PO (09:19)
[2024-03-30] MEDS: levETIRAcetam 500 mg Tablet 1000 MG PO ×2 (09:19→21:10)
[2024-03-30 14:00] VITALS: RESP 16
--- NOTE | 2024-03-30 15:12 | P.NPUPN_ITS ---
Subjective NPU 2 Subjective: Patient presented today reporting that he is doing fine but struggling a little bit with the plan. He is work with the social work team to get into some kind of sober living and maybe dual diagnosis center. He continues to have difficulty with separation from his mother, but also wants to have independence. Talked about some different options as work with the social work team on a more inclusive option. That would assist him with his changes he needs to make. He had his first injection without difficulty and is hoping to be discharged when that second shot is made available. He denies any side effects Mental Status Exam 2 MSE Comments: This is an obese white male in hospital scrubs with adequate grooming and limited eye contact. Poor dentition. No abnormal movements except for psychomotor retardation. Cooperative with exam in mild distress. Speech was slightly decreased rate and volume and childlike with mild dysarthria. Mood described as a little depressed, affect congruent. Thought process linear. Thought content: Patient denied suicidal or homicidal ideation, there were no delusions reported noted, he denied visual but endorsed lessening auditory hallucinations. The patient reports feeling a little paranoid, but denies any current suicidal or homicidal ideation. Attention and concentration were intact and memory appeared somewhat reliable but none were formally tested. He is alert and oriented x3. Insight and judgment limited impulse control limited versus impaired. Vitals/I&O/Wt Last Vital Signs Temp 98.1 F 03/29/24 20:59 Pulse 70 03/29/24 20:59 Resp 18 03/30/24 06:00 BP 110/70 03/29/24 20:59 Pulse Ox 97 03/29/24 20:59 O2 Del Method Room Air 03/29/24 20:59 Data NPU 03/21/24 00:44 03/21/24 00:44 A&P Assessment and plan (1) Borderline intellectual functioning: (2) Fracture of distal phalanx of finger: Qualifiers: Encounter type: initial encounter Finger: middle finger Fracture alignment: nondisplaced Fracture type: closed Laterality: right Qualified Code(s): S62.662A - Nondisplaced fracture of distal phalanx of right middle finger, initial encounter for closed fracture (3) Depression: (4) Generalized epilepsy: (5) ADHD: (6) Cannabis use disorder, moderate, dependence: (7) Methamphetamine use disorder, moderate, dependence: (8) Acute psychosis: Plan This is a 23-year-old white male known from past encounters with a long history of mental health issues during his childhood with clear issues of impulsivity and intellectual disability recently discharged 9 days ago and presented to that hospitalization having only been gone 5 days. The patient has a complex history of psychiatric disorders, including depression, anxiety, paranoia, and ADHD. They also have a history of substance abuse, including tobacco, alcohol, cannabis, methamphetamine, and opioids. The patient has been to rehabilitation once and has multiple admissions to psychiatric hospitals. 1. Continue current medication. Invega increased to 6 mg p.o. daily. Initiated Invega Sustenna 234 mg IM loading dose to deltoid only. 2. Continue every 15 minute checks for safety 3. Encourage individual, group and milieu therapy. 4. Encourage sober living treatment after discharge at the highest level care to which he is willing to commit. We need to also identify how significant the role of addiction is. Patient acknowledged role of addiction and his poor functioning. Identify how he performed with his DIONY 5. Obtain collateral information. His family brought his subsidy cards and try to assist him in getting his cards in order Involuntary Hold Information 2 96 Hour Hold: 96 Hour Involuntary Admission: No Attestations NPU 2 Medical Necessity Statement*: Inpatient hospitalization is medically necessary and the clinically appropriate intervention at this time. We will monitor/initiate medications and make changes as indicated. Likely length of stay 1-3 days. Coding Level of Care Code Acute Code for [facility] Fwd Diagnoses Borderline intellectual functioning R41.83 Fracture of distal phalanx of finger S62.662A Encounter type: initial encounter Finger: middle finger Fracture alignment: nondisplaced Fracture type: closed Laterality: right Depression F32.A Generalized epilepsy G40.309 ADHD F90.9 Cannabis use disorder, moderate, dependence F12.20 Methamphetamine use disorder, moderate, dependence F15.20 Acute psychosis F23
[2024-03-30] MEDS: OLANZapine 5 mg ODT PO (15:46)
--- NOTE | 2024-03-30 16:57 | PC.NURSE ---
Patient's mother Rebeca called and said that she is going to come up there tomorrow and cause a scene if she isn't able to talk with the doctor about the patient. Patient;s mother says that the hospital is forcing patient to go to [facility] where mandaen will be forced on him. This nurse attempted to talk with the mother but she cut this nurse off, saying are you the person who can release my son, because if you aren't I don't want to talk to you. This nurse took patient's number [phone]. This nurse notified Dr. Toscano and Analisa, RN.
[2024-03-30] MEDS: hyDROXYzine 25 mg Capsule 50 MG PO (21:10)
[2024-03-30] MEDS: trazodone 50 mg Tablet PO (21:10)
--- NOTE | 2024-03-30 22:32 | PC.NURSE ---
pt ref vs resp 16 charge notified
--- NOTE | 2024-03-31 06:24 | PC.NURSE ---
vs not collected resp 16 charge notified.
[2024-03-31] MEDS: levETIRAcetam 500 mg Tablet 1000 MG PO ×2 (08:25→20:41)
[2024-03-31] MEDS: nicotine 4 mg lozenge MUCOUS MEM ×5 (08:25→20:44)
[2024-03-31] MEDS: paliperidone ER 6 mg Tablet PO (08:25)
--- NOTE | 2024-03-31 09:04 | P.NPUPN_ITS ---
Subjective NPU 2 Subjective: Patient presented today reporting that he is doing all right. He is excited about the idea of leaving and we discussed the risks, benefits and alternatives of giving him his second Invega injection within the appropriate window but 3 days early of the scheduled Friday administration. He understood and agreed to proceed as is documented in this note. We discussed the fact that we will put the orders for the next shot in there and that that date we will change from the 4 weeks from Friday schedule. Otherwise he is looking forward to going to a program that is nearby. He denied any side effects to his medications. Mental Status Exam 2 MSE Comments: This is an obese white male in hospital scrubs with adequate grooming and limited eye contact. Poor dentition. No abnormal movements except for psychomotor retardation. Cooperative with exam in mild distress. Speech was slightly decreased rate and volume and childlike with mild dysarthria. Mood described as a little depressed, affect congruent. Thought process linear. Thought content: Patient denied suicidal or homicidal ideation, there were no delusions reported noted, he denied visual but endorsed lessening auditory hallucinations. The patient reports feeling a little paranoid, but denies any current suicidal or homicidal ideation. Attention and concentration were intact and memory appeared somewhat reliable but none were formally tested. He is alert and oriented x3. Insight and judgment limited impulse control limited versus impaired. Vitals/I&O/Wt Last Vital Signs Temp 98.1 F 03/29/24 20:59 Pulse 70 03/29/24 20:59 Resp 16 03/30/24 14:00 BP 110/70 03/29/24 20:59 Pulse Ox 97 03/29/24 20:59 O2 Del Method Room Air 03/29/24 20:59 Data NPU 03/21/24 00:44 03/21/24 00:44 A&P Assessment and plan (1) Borderline intellectual functioning: (2) Fracture of distal phalanx of finger: Qualifiers: Encounter type: initial encounter Finger: middle finger Fracture alignment: nondisplaced Fracture type: closed Laterality: right Qualified Code(s): S62.662A - Nondisplaced fracture of distal phalanx of right middle finger, initial encounter for closed fracture (3) Depression: (4) Generalized epilepsy: (5) ADHD: (6) Cannabis use disorder, moderate, dependence: (7) Methamphetamine use disorder, moderate, dependence: (8) Acute psychosis: Plan This is a 23-year-old white male known from past encounters with a long history of mental health issues during his childhood with clear issues of impulsivity and intellectual disability recently discharged 9 days ago and presented to that hospitalization having only been gone 5 days. The patient has a complex history of psychiatric disorders, including depression, anxiety, paranoia, and ADHD. They also have a history of substance abuse, including tobacco, alcohol, cannabis, methamphetamine, and opioids. The patient has been to rehabilitation once and has multiple admissions to psychiatric hospitals. 1. Continue current medication. Invega increased to 6 mg p.o. daily. Initiated Invega Sustenna 234 mg IM loading dose to deltoid only. Second loading dose Invega Sustenna 156 mg IM to deltoid to begin on Friday prior to discharge. 2. Continue every 15 minute checks for safety 3. Encourage individual, group and milieu therapy. 4. Encourage sober living treatment after discharge at the highest level care to which he is willing to commit. We need to also identify how significant the role of addiction is. Patient acknowledged role of addiction and his poor functioning. Identify how he performed with his DIONY 5. Obtain collateral information. His family brought his subsidy cards and try to assist him in getting his cards in order 6. Excepted at a program. We will get his second injection of Invega on Friday and then discharge. Involuntary Hold Information 2 96 Hour Hold: 96 Hour Involuntary Admission: No Attestations NPU 2 Medical Necessity Statement*: Inpatient hospitalization is medically necessary and the clinically appropriate intervention at this time. We will monitor/initiate medications and make changes as indicated. Likely length of stay 2 days. Coding Level of Care Code Acute Code for [facility] Fwd Diagnoses Borderline intellectual functioning R41.83 Fracture of distal phalanx of finger S62.662A Encounter type: initial encounter Finger: middle finger Fracture alignment: nondisplaced Fracture type: closed Laterality: right Depression F32.A Generalized epilepsy G40.309 ADHD F90.9 Cannabis use disorder, moderate, dependence F12.20 Methamphetamine use disorder, moderate, dependence F15.20 Acute psychosis F23
[2024-03-31 14:00] VITALS: BP 120/84; PULSE 103; RESP 18; TEMP 36.9; O2SAT 99
[2024-03-31] MEDS: ibuprofen 600 mg Tablet PO ×2 (14:01→20:43)
[2024-03-31] MEDS: hyDROXYzine 25 mg Capsule 50 MG PO ×2 (15:49→20:41)
--- NOTE | 2024-03-31 15:49 | PC.NURSE ---
PRN VISTARIL 50 MG GIVEN PO PER PT C/O STATED ANXIETY
[2024-03-31 20:25] VITALS: BP 138/71; PULSE 92; RESP 18; TEMP 36.6; O2SAT 98
[2024-03-31] MEDS: OLANZapine 5 mg ODT PO (20:39)
--- NOTE | 2024-04-01 06:18 | PC.NURSE ---
vs not collected pt ref resp 18 charge notified
[2024-04-01] MEDS: nicotine 4 mg lozenge MUCOUS MEM ×5 (08:21→20:30)
[2024-04-01] MEDS: levETIRAcetam 500 mg Tablet 1000 MG PO ×2 (08:21→20:29)
[2024-04-01] MEDS: hyDROXYzine 25 mg Capsule 50 MG PO ×3 (08:21→20:30)
[2024-04-01] MEDS: paliperidone ER 6 mg Tablet PO (08:21)
[2024-04-01 14:00] VITALS: BP 108/68; PULSE 126; RESP 18; TEMP 36.6; O2SAT 98
--- NOTE | 2024-04-01 14:35 | P.NPUPN_ITS ---
Subjective NPU 2 Subjective: Patient presented today reporting that he is doing better. Unfortunately staff report that he has decided he is not going to the sober living program and has no response or clarity about how he will maintain sobriety or have the situation from his addiction be better in the future. All he can repeat is that he misses his family and that he will not go to this program because he will miss them too much. Any conversation about his addiction and change and how he is going to figure out a way to avoid repeating the same results is lost in the situation. He says that even if he ultimately said he would go to the program he would just walk away. He denies any side effects to the medication. Mental Status Exam 2 MSE Comments: This is an obese white male in hospital scrubs with adequate grooming and limited eye contact. Poor dentition. No abnormal movements except for psychomotor retardation. Cooperative with exam in mild distress. Speech was slightly decreased rate and volume and childlike with mild dysarthria. Mood described as a little depressed, affect congruent. Thought process linear. Thought content: Patient denied suicidal or homicidal ideation, there were no delusions reported noted, he denied visual but endorsed lessening auditory hallucinations. The patient reports feeling a little paranoid, but denies any current suicidal or homicidal ideation. Attention and concentration were intact and memory appeared somewhat reliable but none were formally tested. He is alert and oriented x3. Insight and judgment limited impulse control limited versus impaired. Vitals/I&O/Wt Last Vital Signs Temp 97.8 F 03/31/24 20:25 Pulse 92 03/31/24 20:25 Resp 18 03/31/24 20:25 BP 138/71 03/31/24 20:25 Pulse Ox 98 03/31/24 20:25 O2 Del Method Room Air 03/31/24 20:25 Data NPU 03/21/24 00:44 03/21/24 00:44 A&P Assessment and plan (1) Borderline intellectual functioning: (2) Fracture of distal phalanx of finger: Qualifiers: Encounter type: initial encounter Finger: middle finger Fracture alignment: nondisplaced Fracture type: closed Laterality: right Qualified Code(s): S62.662A - Nondisplaced fracture of distal phalanx of right middle finger, initial encounter for closed fracture (3) Depression: (4) Generalized epilepsy: (5) ADHD: (6) Cannabis use disorder, moderate, dependence: (7) Methamphetamine use disorder, moderate, dependence: (8) Acute psychosis: Plan This is a 23-year-old white male known from past encounters with a long history of mental health issues during his childhood with clear issues of impulsivity and intellectual disability recently discharged 9 days ago and presented to that hospitalization having only been gone 5 days. The patient has a complex history of psychiatric disorders, including depression, anxiety, paranoia, and ADHD. They also have a history of substance abuse, including tobacco, alcohol, cannabis, methamphetamine, and opioids. The patient has been to rehabilitation once and has multiple admissions to psychiatric hospitals. 1. Continue current medication. Invega increased to 6 mg p.o. daily. Initiated Invega Sustenna 234 mg IM loading dose to deltoid only. Second loading dose Invega Sustenna 156 mg IM to deltoid to begin on Friday prior to discharge. 2. Continue every 15 minute checks for safety 3. Encourage individual, group and milieu therapy. 4. Encourage sober living treatment after discharge at the highest level care to which he is willing to commit. We need to also identify how significant the role of addiction is. Patient acknowledged role of addiction and his poor functioning. Identify how he performed with his DIONY 5. Obtain collateral information. His family brought his subsidy cards and try to assist him in getting his cards in order 6. Excepted at a program. We will get his second injection of Invega on Friday and then discharge. However at the last moment he is now rejecting a plan to go to the treatment that we have worked fevers to lead to accomplish. He reports that if we send him to this place he will just leave. He had a conversation with his mother and now his report is he is to [facility] and misses his family too much to go to any kind of program he just wants to go home. We discussed how this has been an approach he has had, help seeking then help rejecting and previous hospitalizations in this may be the last opportunity that we have this kind of an investment in his long-term circumstance only to have him go against that in the end. Involuntary Hold Information 2 96 Hour Hold: 96 Hour Involuntary Admission: No Attestations NPU 2 Medical Necessity Statement*: Inpatient hospitalization is medically necessary and the clinically appropriate intervention at this time. We will monitor/initiate medications and make changes as indicated. Likely length of stay 1 day. Coding Level of Care Code Acute Code for Chg Fwd Diagnoses Borderline intellectual functioning R41.83 Fracture of distal phalanx of finger S62.662A Encounter type: initial encounter Finger: middle finger Fracture alignment: nondisplaced Fracture type: closed Laterality: right Depression F32.A Generalized epilepsy G40.309 ADHD F90.9 Cannabis use disorder, moderate, dependence F12.20 Methamphetamine use disorder, moderate, dependence F15.20 Acute psychosis F23
--- NOTE | 2024-04-01 16:02 | PC.NURSE ---
PT GAVE THIS RN VERBAL CONSENT TO SPEAK TO MOTHER. MOTHER STATES BIRGIT DOES NOT WANT TO GO TO A MINISTRY HOUSE AND I DON'T KNOW WHY YOU ALL ARE MAKING HIM, HE DOESN'T EVEN BELIEVE IN GOD. PTS MOTHER WAS EDUCATED THAT BIRGIT WAS THE ONE WHO DECIDED TO GO TO THE MINISTRY HOUSE SO HE COULD STAART MY OWN LIFE. PTS MOTHER STATES THAT BIRGIT CAN GO TO ONE OF HER FRIENDS HOUSES THAT DOES NOT HAVE A PHONE WHEN HE DISCHARGES TOMORROW. PTS MOTHER WAS AGAIN EDUCATED THAT THIS RN DOES NOT KNOW WHEN THE PT WILL BE DISCHARGED AND THE DR. MCDANIELS WILL NEED TO BE UPDATED ON THE PTS RECENT DECISION OF NOT GOING TO THE [id number]. PTS MOTHER WAS INFORMED THAT THE PT FILLED OUT THE APPLICATION AND PARTICIPATED IN THE INTERVIEW PROCESS WILLINGLY AND DID KNOW THAT IT WAS A [facility]. PT WAS UPDATED ON CONVERSATION AND WAS REASSURED THAT NO ONE IS UPSET ABOUT HIS DECISIONS NOT TO GO, THAT STAFF WAS PROVIDING RESOURCES FOR HIM THAT ASSISTED WITH HIS DRUG ADDICTION. SUPPORT VOICED. CASE MANAGEMENT NOTIFIED OF PTS CHANGE PLANS.
[2024-04-01] MEDS: OLANZapine 5 mg ODT PO ×2 (17:08→20:30)
--- NOTE | 2024-04-01 17:09 | PC.NURSE ---
PT CONTINUES TO REQUEST ANXIETY MEDIATIONS. PT HAS BEEN GIVEN VISTARIL 50 MG. PT STATES IT IS INEFFECTIVE. THIS RN GAVE PT ZYDIS 5 MG ORDERED FOR CONTINUED REPORTS OF INCREASED ANXIETY.
[2024-04-01] MEDS: ibuprofen 600 mg Tablet PO (20:29)
[2024-04-01 20:55] VITALS: BP 128/64; PULSE 112; RESP 16; O2SAT 98
[2024-04-02 06:00] VITALS: BP 135/64; PULSE 76; RESP 20; O2SAT 96
[2024-04-02] MEDS: nicotine 4 mg lozenge MUCOUS MEM (08:21)
[2024-04-02] MEDS: levETIRAcetam 500 mg Tablet 1000 MG PO (08:21)
[2024-04-02] MEDS: paliperidone ER 6 mg Tablet PO (08:21)
--- NOTE | 2024-04-02 09:18 | P.NPUDS_ITS ---
Diagnoses at Discharge Discharge Diagnosis (1) Borderline intellectual functioning: Status: Acute (2) Fracture of distal phalanx of finger: Status: Inactive Qualifiers: Encounter type: initial encounter Finger: middle finger Fracture alignment: nondisplaced Fracture type: closed Laterality: right Qualified Code(s): S62.662A - Nondisplaced fracture of distal phalanx of right middle finger, initial encounter for closed fracture (3) Depression: Status: Inactive (4) Generalized epilepsy: Status: Acute (5) ADHD: Status: Acute (6) Cannabis use disorder, moderate, dependence: Status: Acute (7) Methamphetamine use disorder, moderate, dependence: Status: Acute (8) Acute psychosis: Status: Acute Reason for Visit Reason for Visit: MHE Brief History: History of Present Illness Raad Dasilva is a 23 year old male who presented to the emergency department with the following report: Chief Complaint: Psychiatric Symptoms Stated Complaint: MHE Time Seen by Provider: 03/20/24 23:03 History of Present Illness: 23-year-old male well-known to the emerg ency department service as well as a neuropsychiatric floor service. He presents with anxiety, auditory hallucinations. He has not been taking his medications. He was recently hospitalized and discharged 1 week ago for the neuropsych department here at the hospital. He says he has not taken his medications, because he believes the paliperidone is making his tongue swell. He took a hit off of a THC pen last evening, and had increased anxiety with hallucinations. He he is not suicidal currently, but notes that thoughts come and go . He was admitted to the neuropsychiatric unit for definitive treatment of those issues. This represents his third inpatient hospitalization here, all of which have occurred since 02/27/2024. An excerpt of his last discharge summary is included below for context and the fact that there have been no substantive changes. He presents today reporting that things have been tough since he left. He reports that he thinks he needs his medication adjusted. However we had a lengthy discussion about the fact that at both of his last 2 admissions his drug screen was positive for marijuana and amphetamines. He denied use of amphetamine but we discussed the fact that for some people the marijuana itself is sufficient to create perceptual disturbances and psychosis. We discussed him needing to address his issue with addiction he wanted to be able to depend on the medication to help. He seemed to be ambivalent about this position but was identifying that he may need to find a new place to stay. He otherwise reported that he was not feeling any major side effects of the medication just not feeling it worked. Again we stressed the fact that having a clear mind may not be compatible with cannabis and methamphetamines. We discussed maintaining his current medication and possibly working with the treatment team tomorrow on some kind of sober living treatment facility that may allow us to identify the role that the addiction is playing in his functionality. Per his 03/12/2024 [facility] inpatient psychiatric discharge summary: SI Brief History: History of Present Illness Raad Dasilva is a 23 year old male most recently discharged from the neuropsychiatric unit on 03/03/2024 who presented to the emergency department with complaints of auditory and visual hallucinations. He had reported that he was hearing voices telling him to kill himself. He had reported to nurses here that he had been homeless despite reporting that he had been staying at a friend's home. He had admitted to noncompliance with his current medication regimen and was admitted back to the neuropsychiatric unit for further evaluation and treatment. The patient was an extremely poor historian and refused to discuss any of the events that had led to his hospitalization here. Current Medications: Keppra 1000mg bid, Invega 3mg daily, Excerpt from NPU Discharge Summary on 03/03/24. Discharge Diagnosis (1) Fracture of distal phalanx of finger : Status: Inactive Qualifiers: Encounter type: initial encounter Finger: middle finger Fracture alignment: nondisplaced Fracture type: closed Laterality: right Qualified Code(s): S62.662A - Nondisplaced fracture of distal phalanx of right middle finger, initial encounter for closed fracture (2) Contusion of right knee: Status: Inactive Qualifiers: Encounter type: initial encounter Qualified Code(s): S80.01XA - Contusion of right knee, initial encounter (3) Gastroenteritis: Status: Inactive (4) Depression: Status: Inactive (5) Generalized epilepsy: Status: Acute (6) Borderline intellectual functioning: Status: Acute (7) Intermittent explosive disorder in a dult: Status: Acute (8) ADHD: Status: Acute Reason for Visit SI Brief History: History of Present Illness Raad Dasilva is a 23 year old male who presented to the emergency department with the following report: Chief Complaint: Psychiatric Symptoms Stated Complaint: SI Time Seen by Provider: 02/26/24 20:33 History of Present Illness: 23-year-old male who presents emergency room with suicidal ideation. He says he has not been taking his depression medications. He says he wants to quit suicide but does not have any specific plan at this time. He was admitted to the neuropsychiatric unit for definitive treatment of those issues. He is known to [facility] psychiatric services through an emergency room consult and some limited outpatient contacts. An excerpt of his 2022 emergency room contact is included below for historical context. He presents today reporting: Chief complaint The patient came to the hospital to get on the medication that they need to be on. History of the present complaint The patient, born on 2000, presented with a history of multiple admissions to psychiatric hospitals, estimating the number to be between 20 and 30 times. The last admission was reported to be a few months prior to the current consultation. The patient has been diagnosed with epilepsy and has been prescribed Keppra for seizure management. The patient reported a history of substance use, including tobacco, alcohol, marijuana, and methamphetamine. The patient started smoking and drinking alcohol at the age of 19. The patient recently started using marijuana for pain management but did not find it effective. The patient reported previous use of methamphetamine but has since stopped. The patient has been to rehab once but expressed a strong desire not to return. The patient reported experiencing symptoms of depression from a young age, describing feelings of sadness, helplessness, and hopelessness. The patient also reported sleep problems, low mood, and low energy. There were instances where the patient wished not to be alive and has attempted suicide twice, once by overdosing and another time by cutting the wrist. The patient also reported experiencing anxiety, often worrying about potential outcomes and being unable to stop these thoughts. There were instances where the patient felt paranoid, believing that people were out to get them or following them. The patient also reported occasional auditory and visual hallucinations. The patient denied any self-injurious behavior such as cutting or burning themselves. The patient reported having nightmares and flashbacks about traumatic events but did not elaborate on the nature of these events. The patient denied having obsessive-compulsive behaviors such as repeated hand washing or counting steps. The patient also denied engaging in behaviors such as stealing, setting fires, or being cruel to animals. The patient was previously identified as having Attention Deficit Hyperactivity Disorder (ADHD). The patient reported a history of foster care due to allegations of drug use by the mother. The patient was placed in multiple foster homes before eventually returning to their mother. The patient also reported being placed in a psychiatric torrez due to a disability. The patient reported witnessing a friend , which was a traumatic event for them. The patient reported previous treatment with Abilify but did not specify the reason for discontinuation. The patient expressed a preference to restart Abilify over starting a new medication, Invega. The patient denied any current suicidal or homicidal ideation but reported feeling slightly paranoid. The patient denied any current hallucinations. Mental health history The patient has a history of multiple admissions to psychiatric hospitals, with the exact number being uncertain. They have been prescribed Keppra for epileptic seizures. The patient has a history of depression, with symptoms including sadness, feelings of hopelessness, sleep problems, low mood, and low energy. They have attempted suicide twice, once by suffocating themselves and once by cutting their wrist. The patient also experiences anxiety, paranoia, and occasional auditory and visual hallucinations. They have been diagnosed with ADHD in the past. Social history The patient has a history of tobacco use, both smoking and vaping, which started at the age of 19. They also started consuming alcohol at the same age. They have recently started using cannabis for pain relief. They have previously used methamphetamine and opioids, but are not currently using these substances. They have been to rehab once. The patient has a history of driving under the influence and has been charged with paraphernalia, underage drinking, and possession. They have two children with two different women, but do not have contact with them. The patient has worked at a [employer] for a year and a half. They currently live with their mother, sister, sister's boyfriend, mother's boyfriend, and a friend. Per his 01/29/2023 [facility] psychiatric consultation: History of Present Illness Raad Dasilva is a 22 year old male who presented to the emergency department with the following report: Chief Complaint: Psychiatric Symptoms Stated Complaint: SI Time Seen by Provider: 01/29/23 06:52 Source: patient and EMS Mode of arrival: EMS Limitations: no limitations History of Present Illness: 22-year-old male is here with EMS he sta kendrick that he called into work this morning him and his mom got in a fight over that and he told her using a slit his wrist. He states that he is not suicidal he said he is just saying that he stated he is depressed he feels like he needs to be on meds he denies having any suicidal plan at this time. Associated symptoms: Reports depression. A psychiatric consult was requested to assess whether inpatient services were needed versus discharge. 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 He reports that he is not currently taking psychiatric medication but has in the past. He endorses having inpatient psychiatric hospitalizations during his childhood mostly secondary to issues surrounding poor impulse control and anger. He reports that he does have seizures and takes Keppra for that. He reports that he woke up this morning feeling not that good and thought to himself he needed to get his medications adjusted. So he called EMS. He reports that there have been a dispute with his mom this morning that led him to being a bit irritable. Reports are that somebody and EMS heard him say that he was going to slit his wrist or something of that nature. He reported at first that he never said it. Then he reported he did not remember saying it discussed the fact that he will sometimes say things they do not mean or say things angry in the moment. He over and over stressed that he was not suicidal had no thoughts to hurt himself or anyone else nor would he. We had a long discussion about the importance of being in care even if you are not on medication so that when rough days, you have resources in place. We also discussed at length the crisis stabilization unit and its availability times etc. Discussing that if he had a moment like he had this morning he could have a place that he could call or go to immediately and he like that idea. He had a family member in the room who was supportive of the fact that he has these intermittent explosions that do not lead to anything just angry outbursts. We reviewed his additional history developmental, family etc. and there were no issues germane to this decision today. Hospital Course Hospital Course Patient acclimated to the individual, group and milieu therapies provided. He presented with reports that his medications were not working and needing to have them adjusted. It was noted on admission that he was again positive on his UDS for amphetamines. Initially he continued the story that phentermine was the culprit which had been reported the last time. But after continued questioning he eventually acknowledged methamphetamine use. We changed our direction to getting him into a sober living program and we worked able to accomplish that with a plan to get him his second Invega Sustenna injection today and then discharge him to [facility]. However during this stay his mother was very much resistant to him going to some treatment facility especially something that was not right in town. And was upset as he had requested his food stamp card and debit card with his other money on it. He was reporting commitment to go to this program but after multiple calls in the days leading up to discharge he at the last minute yesterday evening said that he was not going to go to the program. Invega was started and given at 6 mg at discharge. He was given 7 more days of Invega because he had been switched to the Invega Sustenna. He was discharged with refills for the 156 mg IM dose with his next injection being 05/03/2024. He had significant improvement during his stay. He worked with the social work team to get appropriate outpatient appointments given that he changed at the last hour. We discussed with him that this was the second or third time we had made fairly robust placements for residential treatment to have him not follow through with the last minute which will make this an unlikely plan if there were future hospitalizations. He was able to contract for safety outside of the hospital, prior to discharge. During the hospitalization, patient had routine laboratory studies which were within normal limits except for few outliers. Additionally there was a general medical evaluation which was also within normal limits and revealed no new acute processes. Discharge Summary: At the time of discharge, he denied psychosis or lethality. Mood and anxiety were well managed. Patient endorsed a plan to avoid all drugs of abuse and follow-up with the aftercare recommendations of the treatment team. Patient was evaluated and deemed to be absent credible lethality, and had achieved the maximum benefit from an inpatient hospitalization, so was discharged. Involuntary Hold Information 96 Hour Hold: 96 Hour Involuntary Admission: No Mental Status Exam MSE Comments: This is an obese white male in hospital scrubs with adequate grooming and limited eye contact. Poor dentition. No abnormal movements except for psychomotor retardation. Cooperative with exam in mild distress. Speech was slightly decreased rate and volume and childlike with mild dysarthria. Mood described as happy to be going home, affect congruent. Thought process linear. Thought content: Patient denied suicidal or homicidal ideation, there were no delusions reported noted, he denied auditory or visual hallucinations. Attention and concentration were intact and memory appeared somewhat reliable but none were formally tested. He is alert and oriented x3. Insight and judgment limited versus impaired, impulse control limited. Discharge Data Studies Completed and Pending: Laboratory Results WBC 10.73 10^3/uL (3. 29-11.43) 03/21/24 00:44 RBC 4.96 10^6/uL (3.8 5-5.65) 03/21/24 00:44 Hgb 14.30 g/dL (11.27 -16.99) 03/21/24 00:44 Hct 42.2 % (37-53) 03/21/24 00:44 MCV 85.1 fl (82-101) 03/21/24 00:44 MCH 28.8 pg (27-33) 03/21/24 00:44 MCHC 33.9 g/dL (30-55) 03/21/24 00:44 RDW 13.2 % (12.1-15.1 ) 03/21/24 00:44 Plt Count 214 10^3/cmm (157 -399) 03/21/24 00:44 MPV 10.7 fL (7.4-10.4 ) H 03/21/24 00:44 Neut % (Auto) 81.0 % 03/21/24 00:44 Lymph % (Auto) 11.7 % 03/21/24 00:44 [place] % (Auto) 5.6 % 03/21/24 00:44 Eos % (Auto) 1.2 % 03/21/24 00:44 Baso % (Auto) 0.3 % 03/21/24 00:44 Neut # (Auto) 8.69 10^3/uL (1.8 -7.7) H 03/21/24 00:44 Lymph # (Auto) 1.3 10^3/uL (0.8- 4.8) 03/21/24 00:44 [place] # (Auto) 0.6 10^3/uL (0.2- 0.9) 03/21/24 00:44 Eos # (Auto) 0.1 10^3/uL (0.0- 0.8) 03/21/24 00:44 Baso # (Auto) 0.0 10^3/uL (0.0- 0.1) 03/21/24 00:44 Nucleated RBC % (a uto) 0 % 03/21/24 00:44 Nucleated RBCs # 0.0 /100WBC 03/21/24 00:44 Sodium 141 mmol/L (136-1 45) 03/21/24 00:44 Potassium 3.8 mmol/L (3.5-5 .1) 03/21/24 00:44 Chloride 105 mmol/L (98-10 7) 03/21/24 00:44 Carbon Dioxide 26 mmol/L (22-29) 03/21/24 00:44 Anion Gap 13.8 (5-19) 03/21/24 00:44 BUN 16 mg/dL (6-20) 03/21/24 00:44 Creatinine 0.9 mg/dL (0.7-1. 2) 03/21/24 00:44 GFR Calculation 105.5 mL/min (90- 130) 03/21/24 00:44 Glucose 134 mg/dL (65-115 ) H 03/21/24 00:44 Calculated Osmolal ity 295 mOsm/kg (285- 295) 03/21/24 00:44 Calcium 9.2 mg/dL (8.5-10 .5) 03/21/24 00:44 Total Bilirubin 0.5 mg/dL (0.15-1 .2) 03/21/24 00:44 AST 14 U/L (0-40) 03/21/24 00:44 ALT 19 U/L (0-41) 03/21/24 00:44 Alkaline Phosphata se 79 U/L (40-130) 03/21/24 00:44 Total Protein 6.3 g/dL (6.6-8.7 ) L 03/21/24 00:44 Albumin 4.2 g/dL (3.5-5.2 ) 03/21/24 00:44 Globulin 2.1 g/dL (1.3-4.6 ) 03/21/24 00:44 Urine Color Yellow (Yellow) 03/21/24 08:37 Urine Appearance Clear (CLEAR) 03/21/24 08:37 Urine pH 5.5 (5-7) 03/21/24 08:37 Ur Specific Gravit y 1.028 (1.005-1.0 30) 03/21/24 08:37 Urine Protein Negative (Negati ve) 03/21/24 08:37 Urine Glucose (UA) Negative (Normal ) 03/21/24 08:37 Urine Ketones Trace (Negative) 03/21/24 08:37 Urine Blood Negative (Negati ve) 03/21/24 08:37 Urine Nitrate Negative (Negati ve) 03/21/24 08:37 Urine Bilirubin Negative (Negati ve) 03/21/24 08:37 Urine Urobilinogen 1.0 mg/dL (Negati ve) 03/21/24 08:37 Ur Leukocyte Yesenia ase Negative (Negati ve) 03/21/24 08:37 Urine RBC 0-2 /hpf (0-2) 03/21/24 08:37 Urine WBC 0-5 /hpf (0-5) 03/21/24 08:37 Ur Squamous Epith Cells 0-5 /hpf (0-5) 03/21/24 08:37 Amorphous Sediment Not Reportable 03/21/24 08:37 Urine Bacteria None seen /hpf (N ONE) 03/21/24 08:37 Hyaline Casts 0.81 /lpf 03/21/24 08:37 Salicylates < 0.3 mg/dL (3-10 ) L 03/21/24 00:44 Urine Opiates Scre en Negative ng/mL (N egative) 03/21/24 08:37 Acetaminophen < 5.0 ug/mL (10-3 0) L 03/21/24 00:44 Ur Barbiturates Sc reen Negative ng/mL (N egative) 03/21/24 08:37 Ur Phencyclidine S crn Negative ng/mL (N egative) 03/21/24 08:37 Ur Amphetamines Sc reen Positive ng/mL (N egative) H 03/21/24 08:37 U Benzodiazepines Scrn Negative ng/mL (N egative) 03/21/24 08:37 Urine Cocaine Scre en Negative ng/mL (N egative) 03/21/24 08:37 U Marijuana (THC) Screen Positive ng/mL (N egative) H 03/21/24 08:37 Ethyl Alcohol < 10 mg/dL (0-10) 03/21/24 00:44 Vitals: Last Vital Signs Temp 97.8 F 04/01/24 14:00 Pulse 76 04/02/24 06:00 Resp 20 H 04/02/24 06:00 BP 135/64 04/02/24 06:00 Pulse Ox 96 04/02/24 06:00 O2 Del Method Room Air 04/02/24 06:00 Discharge Plan Discharge Patient Disposition: Home Condition: Stable Prescriptions: New olanzapine 5 mg Tablet,Disintegrating 5 mg PO DAILY PRN (Reason: Agitation/Psychosis) 30 Days Qty: 30 1RF hydroxyzine pamoate 25 mg Capsule 50 mg PO Q6H PRN (Reason: Anxiety) 30 Days Qty: 120 1RF Invega Sustenna 156 mg/mL syringe 156 mg IM Q30D Qty: 1 2RF Rx Instructions: Next injection 05/03/2024 and then as directed. Continued levetiracetam 500 mg tablet 1,000 mg PO BID 30 Days Qty: 120 1RF paliperidone 6 mg Tablet Extended Release 24 Hr 6 mg PO DAILY 7 Days Qty: 7 0RF Rx Instructions: Take for 7 days then discontinue patient on Invega Sustenna. epinephrine 0.3 mg/0.3 mL auto-injector 0.3 mg IM . DIRECTED PRN (Reason: Allergic Reaction) Discontinued levetiracetam 500 mg Tablet 1,000 mg PO BID 30 Days Qty: 120 1RF Discharge Orders: Discharge Order (Routine); Ordered 04/02/24 Ordered By: Bobby Toscano Referrals: [facility] [Other] - 04/08/24 2:00 pm (Initial appointment at [facility] with Naomy Elias 04/08/24 @ 2:00 pm. ) [facility] [Other] - 04/02/24 Anayeli Fong MD [Physician] - 04/27/24 1:15 pm (Follow up) Sandra Vides FNP [Nurse Practitioner] - 04/08/24 10:00 am Discharge Diet: Regular Discharge Activity: Resume usual activity Patient Instructions: Hallucinations (ED), Psychotic Disorder (ED), Opioid Safety, Pain Management Discharge Attestations NPU Time Spent in Discharge Care*: less than 30 min Specific Discharge Activities: Specific discharge activities: educating patient, discussing with community case manager/social workers/dc planners, documenting/other paperwork and evaluating patient/reviewing data Coding Level of Care Code Acute Code for Chg Fwd Diagnoses Borderline intellectual functioning R41.83 Fracture of distal phalanx of finger S62.662A Encounter type: initial encounter Finger: middle finger Fracture alignment: nondisplaced Fracture type: closed Laterality: right Depression F32.A Generalized epilepsy G40.309 ADHD F90.9 Cannabis use disorder, moderate, dependence F12.20 Methamphetamine use disorder, moderate, dependence F15.20 Acute psychosis F23
[2024-04-02] MEDS: paliperidone palmitate 156 mg Syringe IM (10:01)
[2024-04-02 10:39] VITALS: BP 126/70; PULSE 78; RESP 16; TEMP 37.1; O2SAT 99
== END 2024-04-02 11:24 | disposition home or self-care (01) | DRG 883 ==
LOC: ER 03-21 04:13 → NP 03-21 06:34
PROVIDERS: Admitting Provider Psychiatry & Neurology Psychiatry; Emergency Provider Emergency Medicine; PCP Physician Assistant; Visit Provider Psychiatry & Neurology Psychiatry
DX: F63.81 Intermittent explosive disorder (principal); F15.20 Other stimulant dependence, uncomplicated; F23 Brief psychotic disorder; R41.83 Borderline intellectual functioning; F32.A Depression, unspecified; F90.9 Attention-deficit hyperactivity disorder, unspecified type; F12.20 Cannabis dependence, uncomplicated; G40.409 Other generalized epilepsy and epileptic syndromes, not intractable, without status epilepticus; T50.906A Underdosing of unspecified drugs, medicaments and biological substances, initial encounter; E66.9 Obesity, unspecified; Z68.36 Body mass index [BMI] 36.0-36.9, adult; S62.632D Displaced fracture of distal phalanx of right middle finger, subsequent encounter for fracture with routine healing; X58.XXXD Exposure to other specified factors, subsequent encounter
CPT/HCPCS: 36415; 80053; 80306; 80307; 81001; 85025; 96372; 97150; 97165; 97167; 99285